=== PATIENT | female | born 1945 | race Caucasian/White ===

== ENCOUNTER → 2016-07-13 | Outpatient (CLI) | payer OTHER ==
[2014-08-16 10:24] VITALS: BP 134/84
--- NOTE | 2016-07-14 14:04 | MRI ---
MRI left knee without contrast Indication: Knee pain and numbness Technique: Multiplanar, multi sequence imaging of the left knee without IV contrast administration. Findings: The extensor mechanism is intact. The patellofemoral compartment demonstrates approximate 25-30% thinning of the median patellar ridge articular cartilage. There is mild chondral fissuring o f the lateral patellar articular cartilage without subchondral marrow edema. The patella is well pos itioned within the femoral trochlea. Medial and lateral retinacular complexes are intact. Small supr apatellar joint effusion. The the pes anserine tendons are intact. The popliteus muscle is normal. T here is intermediate signal within the popliteus tendon suspicious for tendinopathy. No acute tear. No popliteal fossa cyst. There is a moderate size medial and small bilateral gastrocnemius ganglion cyst present. The medial femorotibial compartment demonstrates no significant chondral thinning, chondromalacia or subchondral marrow signal abnormality. The lateral femorotibial compartment also is that evidence o f significant chondral thinning, chondromalacia or subchondral marrow signal abnormality. Cruciate a nd collateral ligaments are intact. Iliotibial band and biceps femoris are normal. There is osteocho ndral body within the posterior knee joint measuring approximately 8.5 mm on axial image 22 and jaylyn nal image 24. A small osteochondral body is noted within the knee joint on sagittal image 15. Horizo ntally oriented intermediate signal within the meniscal body which appears to extend to the under medrano rface of the central free edge on coronal image 20 most likely represents a subacute flap tear. No e xtrusion of the medial meniscus. The lateral meniscus without evidence of tear. Impression: 1.Two osteochondral bodies in the posterior knee joint with mild patellofemoral compartment osteoart hrosis. 2. Linear intermediate signal extending to the under surface of the medial meniscal body suspicious for a horizontal tear, given the intermediate signal this may represent a subacute or chronic menisc al tear. No root tear or displacement of the medial meniscus. 3. Mild popliteus tendinopathy. Reported By:
== END ==
LOC: RAD 13:44
PROVIDERS: ATTEND Internal Medicine
DX: M25.562 Pain in left knee (principal)
CPT/HCPCS: 73721

== ENCOUNTER → 2016-09-02 | Outpatient (CLI) | payer OTHER ==
[2014-08-16 10:24] VITALS: BP 134/84
--- NOTE | 2016-09-02 12:17 | RAD ---
Three views of the left knee Indication: Left knee pain Findings: There is mild tricompartmental osteoarthrosis within the left knee. Mild enthesopathic elyssa nge of the distal quadriceps tendon. No suprapatellar joint effusion, fracture or dislocation within the left knee. No definite localizing soft tissue swelling. Impression: Mild tricompartmental osteoarthrosis within the left knee without acute fracture, disloc ation or suprapatellar joint effusion. Reported By:
== END | disposition home or self-care (01) | DRG 554 ==
LOC: RAD 11:50
PROVIDERS: ATTEND Orthopaedic Surgery
DX: M17.12 Unilateral primary osteoarthritis, left knee (principal)
CPT/HCPCS: 73564

== ENCOUNTER 2020-05-29 09:49 | Inpatient (IN) ==
[2020-05-29 12:20] LABS: BASOPHILS % (AUTO) 0.2 % (0.2-1.0); EOSINOPHILS % (AUTO) 0.2 % (0.9-2.9); HEMATOCRIT 38.1 % (36.0-47.0); LYMPHOCYTES # (AUTO) 1.2 X10^3/uL (1.3-2.9); LYMPHOCYTES % (AUTO) 14.9 % (21.0-51.0); MEAN CORPUSCULAR HEMOGLOBIN 33.4 pg (27.0-34.0); MEAN CORPUSCULAR HGB CONC 34.1 g/dL (33.0-35.0); MEAN CORPUSCULAR VOLUME 98.1 fL (80.0-100.0); MEAN PLATELET VOLUME 8.1 fL (7.4-11.0); MONOCYTES # (AUTO) 0.7 x10^3/uL (0.3-0.8); MONOCYTES % (AUTO) 8.9 % (0.0-13.0); NEUTROPHILS % (AUTO) 75.8 % (42.0-75.0); PLATELET COUNT 139 X10^3/uL (150.0-450.0); RED BLOOD COUNT 3.89 X10^6/uL (3.5-5.4); RED CELL DISTRIBUTION WIDTH 18.6 % (11.6-16.5); WHITE BLOOD COUNT 7.8 X10^3/uL (3.6-10.0)
--- NOTE | 2020-05-29 12:55 | RAD ---
HISTORYAMS, ATAXIA, WEAKNESSSTUDYCHEST, 1 VIEWCOMPARISONPortable chest November 25, 2018FINDINGSThe trachea is midline. The cardiac silhouette is unremarkable . The lungs are clear without focal infiltrate or effusion. Stable small nodular densities are seen bilaterally in the mid and lower lung lee without change from November 25, 2018 the bony thorax is unremarkable.IMPRESSIONNo acute cardiopulmonary disease and no change from November 25, 2018. Nodular densities may represent small calcified granulomas..Electronically signed by: JORGE RICKS (May 29, 2020 12:53:57)
--- NOTE | 2020-05-29 12:57 | CT ---
HISTORYAMS, ATAXIA, WEAKNESSSTUDYCT brain without IV contrastCOMPARISONNoneTECHNIQUEMultiple axial images of the brain were obtained without IV contrast. Dose reduction techniques including Automated Exposure Control (AEC) and adjustment of mA and kV were utilized.FINDINGSProbable retention cyst is seen in the posterior left ethmoid air cells. No air-fluid levels are seen in the paranasal sinuses or mastoid air cells. No calvarial fracture is seen.No acute intracranial hemorrhage or mass effect is seen. The cerebral ventricles are normal in size. No evidence of acute CVA. Punctate idiopathic calcifications are seen in the basal ganglia. Mild chronic small vessel ischemic changes are suspected in the basal ganglia and periventricular white matter.IMPRESSIONMild chronic small vessel ischemic changes are suspected without evidence of acute abnormality.Electronically signed by: Bob Allen (May 29, 2020 12:54:47)
[2020-05-29 13:57] VITALS: BMI 28.8
[2020-05-29] MEDS: NS 1000 ML 1,000 ML IV SCH ×2 (14:28→20:35)
[2020-05-29 15:08] LABS: ALANINE AMINOTRANSFERASE 48 Units/L (12-78); ALBUMIN 2.9 g/dL (3.4-5.0); ALKALINE PHOSPHATASE 101 Units/L (46-116); ASPARTATE AMINO TRANSFERASE 40 Units/L (15-37); BLOOD UREA NITROGEN 21 mg/dL (7-18); CALCIUM 9.2 mg/dL (8.5-10.1); CARBON DIOXIDE 28.8 mmol/L (21-32); CHLORIDE 101 mmol/L (98-107); COR CA(FOR HYPOALB) 10.1 mg/dL (8.5-10.1); CREATININE 1.17 mg/dL (0.55-1.02); SODIUM 137 mmol/L (136-145); TOTAL PROTEIN 6.1 g/dL (6.4-8.2); eGFR NON BLACK RACES 48 (>60)
[2020-05-29] MEDS ORDERED: POTASSIUM CHL 60 MEQ/NS 0.45% 500 ML IV PRN (15:13)
[2020-05-29] MEDS ORDERED: K-RIDER 10 MEQ/NS 100 ML 10 MEQ/100 ML BAG IV PRN (15:13)
[2020-05-29] MEDS ORDERED: MICRO K EXTEN CAP 10 MEQ PO PRN (15:13)
[2020-05-29] MEDS ORDERED: KLOR-CON PO PRN (15:13)
[2020-05-29] MEDS ORDERED: MAGNESIUM SULFATE 1 GRAM/100 mL PREMIX 1 GM/100 ML BAG IV PRN (15:13)
[2020-05-29] MEDS ORDERED: POTASSIUM CHLORIDE LIQ 20 MEQ UDC PO PRN (15:13)
[2020-05-29] MEDS ORDERED: POTASSIUM CHL 40 MEQ/NS 0.45% 500 ML IV PRN (15:13)
[2020-05-29 18:11] LABS: BILIRUBIN,URINE NEGATIVE (NEGATIVE); BLOOD/HEMOGLOBIN,URINE NEGATIVE (NEGATIVE); GLUCOSE, URINE NEGATIVE (NEGATIVE); KETONES,URINE NEGATIVE (NEGATIVE); LEUKOCYTE ESTERASE ,URINE 1+ (NEGATIVE); NITRITES,URINE NEGATIVE (NEGATIVE); PROTEIN,URINE NEGATIVE (NEGATIVE); UROBILINOGEN,URINE NORMAL (NORMAL)
[2020-05-29 18:20] LABS: APPEARANCE,URINE CLEAR (CLEAR); COLOR,URINE STRAW (YELLOW)
[2020-05-29 18:22] LABS: AMORPHOUS SEDIMENT,UR 1+ /HPF (NEGATIVE); BACTERIA,URINE 1+ /HPF (NEGATIVE); RBC,URINE NONE SEEN /HPF (0-3); SQUAMOUS EPITHELIAL CELL,UR FEW /HPF (NEGATIVE)
[2020-05-29] MEDS: BUTT CREAM (COMPOUND) TOP PRN (20:41)
[2020-05-30] MEDS: NS 1000 ML 1,000 ML IV SCH ×5 (01:40→20:33)
[2020-05-30 06:09] LABS: BASOPHILS % (AUTO) 0.6 % (0.2-1.0); EOSINOPHILS % (AUTO) 0.1 % (0.9-2.9); HEMATOCRIT 33.5 % (36.0-47.0); HEMOGLOBIN 11.4 g/dL (12.0-16.0); LYMPHOCYTES % (AUTO) 16.1 % (21.0-51.0); MEAN CORPUSCULAR HEMOGLOBIN 33.5 pg (27.0-34.0); MEAN CORPUSCULAR HGB CONC 34.1 g/dL (33.0-35.0); MEAN CORPUSCULAR VOLUME 98.3 fL (80.0-100.0); MEAN PLATELET VOLUME 7.9 fL (7.4-11.0); MONOCYTES # (AUTO) 0.8 x10^3/uL (0.3-0.8); MONOCYTES % (AUTO) 12.8 % (0.0-13.0); NEUTROPHILS # (AUTO) 4.5 x10^3/uL (2.2-4.8); NEUTROPHILS % (AUTO) 70.4 % (42.0-75.0); PLATELET COUNT 114 X10^3/uL (150.0-450.0); RED BLOOD COUNT 3.41 X10^6/uL (3.5-5.4); RED CELL DISTRIBUTION WIDTH 18.9 % (11.6-16.5); WHITE BLOOD COUNT 6.4 X10^3/uL (3.6-10.0)
[2020-05-30 06:35] LABS: ALANINE AMINOTRANSFERASE 32 Units/L (12-78); ALBUMIN 2.1 g/dL (3.4-5.0); ALKALINE PHOSPHATASE 76 Units/L (46-116); ASPARTATE AMINO TRANSFERASE 23 Units/L (15-37); BLOOD UREA NITROGEN 15 mg/dL (7-18); CALCIUM 8.2 mg/dL (8.5-10.1); CARBON DIOXIDE 25.8 mmol/L (21-32); CHLORIDE 104 mmol/L (98-107); COR CA(FOR HYPOALB) 9.7 mg/dL (8.5-10.1); CREATININE 0.81 mg/dL (0.55-1.02); SODIUM 139 mmol/L (136-145); TOTAL PROTEIN 4.7 g/dL (6.4-8.2); eGFR NON BLACK RACES > 60 (>60)
[2020-05-30] MEDS: K-DUR TAB 20 MEQ PO PRN (08:56)
[2020-05-30] MEDS: ROCEPHIN VIAL 1 GRAM 1 G in NS 100 ML IV + SPIKE MINIBAG* 100 ML IV SCH (08:56)
--- NOTE | 2020-05-30 10:25 | DR.H&P ---
H&P - History & Physical for Day of: H&P Date: 05/29/20 - Chief Complaint Chief Complaint: VISION CHANGES, DIZZINESS, WEAKNESS, UNSTEADY GAIT, LEG PAIN AND WEAKNESS, AND DECREASED APPETITE. - History of Present Illness History of Present Illness: HAS BEEN FOLLOWED IN THE OFFICE FOR THE PAST TWO WEEKS WITH COMPLAINTS OF VISION CHANGES, DIZZINESS, WEAKNESS, UNSTEADY GAIT, LEG PAIN AND WEAKNESS, AND DECREASED APPETITE. HER DAUGHTER REPORTS THAT HER BLOOD PRESSURE HAS BEEN LOW. WE HAVE HELD HER BLOOD PRESSURE MEDICATIONS AND HER STEROIDS, HOWEVER, SYMPTOMS PERSIST. SHE COMPLAINS OF LOWER EXTREMITY EDEMA AND ALSO REPORTS THAT SHE FEELS LIKE HER HANDS HAVE BEEN DRAWING UP. EXAMINATION HAS REVEALED 2+ PITTING EDEMA TO HER LOWER EXTREMITIES. SHE REPORTS THAT THE PAIN IN HER LOWER EXTREMITIES IS DESCRIBED DULL AND CRAMPING AT TIMES. IN THE OFFICE, IT WAS RATED A 4/10, BUT WHEN TOUCHED, PAIN INCREASED TO A 8/10. SHE HAS BEEN REFERRED TO , [employer], BUT HAS NOT SEEN HIM YET. SHE HAS BEEN TAKING HCTZ 12.5MG DAILY TO HELP WITH THE EDEMA, BUT WAS INSTRUCTED TO STOP IT IF HER BLOOD PRESSURE DROPPED. HER PMH INCLUDES ARTHRITIS, GERD, DYSPHAGIA, ANGINA, CHOLECYSTECTOMY, TUBAL, BLADDER TACT, CATARACT SURGERY, AND TONSILLECTOMY. SHE WAS ADMITTED TO THE HOSPITAL FOR FURTHER EVALUATION AND TREATMENT OF SYMPTOMS. ON ARRIVAL TO THE HOSPITAL, VITALS WERE 99.3-101-20-99%-111/75. LABS WERE OBTAINED. ABNORMAL LAB VALUES INCLUDE THE FOLLOWING: PLT COUNT 139, POTASSIUM 3.0, BUN 21, CREATININE 1.17, GLUCOSE 100, TOTAL BILIRUBIN 1.60, AST 40, CRP 82.70, TOTAL PROTEIN 6.1, ALBUMIN 2.9. URINALYSIS WAS OBTAINED AND REVEALED: WBC 3-5, LEUKOCYTES 1+, BACTERIA 1+. A URINE CULTURE WAS SET UP. WE WILL ALSO OBTAIN BLOOD CULTURES. A CHEST XRAY WAS OBTAINED AND REVEALED: No acute cardiopulmonary disease and no change from S eptember 2018. Nodular densities may represent small calcified granulomas. A BRAIN CT WAS OBTAINED AND REVEALED: Mild chronic small vessel ischemic changes are suspected without evidence of acute abnormality. SHE WAS STARTED ON NORMAL SALINE AT 75 ML/HR, ROCEPHIN 1G IV DAILY, LOVENOX 40MG IV Q8H, SOLU-MEDROL 40MG IV Q8H, AND THE POTASSIUM AND MAGNESIUM PROTOCOLS. OTHERWISE, WE PLAN TO FOLLOW UP WITH AM LABS AND CONTINUE TO MONITOR. TIME SPENT ON CLINICAL ASSESSMENT, REVIEWING LABS AND IMAGING, DECISION MAKING, AND DOCUMENTATION GREATER THAN 75 MINUTES. - Past Medical History Past Medical History: Angina, Arthritis, GERD, Hypertension Additional Medical History: ANGINA, DYSPHAGIA - Past Surgical History Surgical History: Cholecystectomy, SIGNALMAN Surgery, Tonsillectomy Additional Surgical History: TUBAL, BLADDER TACT - Family History Family Medical History: Cancer - Social History Does patient currently use any type of tobacco product: No Have you used tobacco products in the last 12 months: No Type of Tobacco Use: None Alcohol Use: None Drug Use: None - Medications Home Medications: peanut Allergy (Verified 12/08/18 09:27) CONTINUE taking the following medications cyanocobalamin (vitamin B-12) 1,000 mcg IM Q14D 05/29/20 [History] folic acid 1 mg PO BID 05/29/20 [History] gabapentin 100 mg PO TID 05/29/20 [History] levothyroxine 50 mcg PO DAILY 05/29/20 [History] pantoprazole 40 mg PO BID 05/29/20 [History] tizanidine 4 mg PO BID 05/29/20 [History] triamterene-hydrochlorothiazid 1 tab PO DAILY 05/29/20 [History] - Review of Systems Constitutional: See HPI, Weakness, Malaise, Other (DECREASED APPETITE ) Eyes: No Symptoms Reported ENT: No Symptoms Reported Respiratory: No Symptoms Reported Cardiovascular: Edema (BLE 1+ PITTING EDEMA ), Light Headedness Gastrointestinal: No Symptoms Reported Genitourinary: No Symptoms Reported Musculoskeletal: See HPI, Leg Pain (BILATERAL LEG PAIN ) Skin: No Symptoms Reported Neurological: Weakness - Physical Exam Vital Signs: Temperature 98.8 F Pulse Rate [Right Brachial] 82 Respiratory Rate 24 Blood Pressure [Right Arm] 101/53 Blood Pressure [Left Arm] 109/55 Blood Pressure 125/71 O2 Sat by Pulse Oximetry 97 Oriented: Normal Eyes: Normal Ear: Normal Nose: Normal Throat: Normal Respiratory: Diminished Throughout Cardiovascular: Edema (BLE 1+ PITTING EDEMA) : Normal Auscultation: Bowel Sounds: Normal Palpation: Normal Tenderness: Normal Skin: Normal Musculoskeletal: Right, Left, Leg, Swelling, Tender Psychiatric: Normal Mood Description: Calm Affect: Normal Speech Pattern: Clear - Assessment/Plan (1) Dehydration Status: Acute Plan: ADMIT, NORMAL SALINE AT 75 ML/HR, ROCEPHIN 1G IV DAILY, LOVENOX 40MG IV Q8H, SOLU-MEDROL 40MG IV Q8H, AND THE POTASSIUM AND MAGNESIUM PROTOCOLS. (2) Urinary tract infection Qualifiers: Urinary tract infection type: acute cystitis Hematuria presence: without hematuria Qualified Code(s): N30.00 - Acute cystitis without hematuria Status: Acute (3) Ataxia Status: Acute (4) Hypotension Qualifiers: Hypotension type: unspecified hypotension type Qualified Code(s): I95.9 - Hypotension, unspecified Status: Acute (5) Generalized weakness Status: Acute (6) Hypokalemia Status: Acute - Allergies Allergies/Adverse Reactions: Allergies Allergy/AdvReac Type Severity Reaction Status Date / Time peanut Allergy Verified 12/08/18 09:27
[2020-05-30] MEDS: SOLU-Medrol 40 MG VIAL IVP SCH ×3 (10:26→21:03)
[2020-05-30] MEDS: HEMOCYTE-PLUS PO SCH (10:26)
[2020-05-30] MEDS: LOVENOX INJ 40 MG SYR SC SCH (10:27)
[2020-05-30 11:44] LABS: CKMB % 4.6 % (<4); CREATINE KINASE 22 Units/L (26-192); CREATINE KINASE MB < 1.0 ng/mL (0-4.0); TROPONIN I 0.02 ng/mL (0-1.5)
[2020-05-30] MEDS: NEURONTIN CAP 100 MG PO SCH ×2 (13:42→21:03)
[2020-05-30] MEDS: PROTONIX TAB 40 MG PO SCH ×2 (13:42→20:33)
[2020-05-30] MEDS: SYNTHROID 50 mcg TAB PO SCH (13:43)
[2020-05-30] MEDS: ZANAFLEX PO SCH (20:33)
[2020-05-31 05:55] LABS: BASOPHILS % (AUTO) 0.2 % (0.2-1.0); HEMATOCRIT 32.2 % (36.0-47.0); HEMOGLOBIN 10.8 g/dL (12.0-16.0); LYMPHOCYTES # (AUTO) 0.7 X10^3/uL (1.3-2.9); LYMPHOCYTES % (AUTO) 8.1 % (21.0-51.0); MEAN CORPUSCULAR HEMOGLOBIN 32.9 pg (27.0-34.0); MEAN CORPUSCULAR HGB CONC 33.5 g/dL (33.0-35.0); MEAN CORPUSCULAR VOLUME 98.3 fL (80.0-100.0); MEAN PLATELET VOLUME 8.2 fL (7.4-11.0); MONOCYTES # (AUTO) 0.4 x10^3/uL (0.3-0.8); MONOCYTES % (AUTO) 4.9 % (0.0-13.0); NEUTROPHILS # (AUTO) 7.1 x10^3/uL (2.2-4.8); NEUTROPHILS % (AUTO) 86.8 % (42.0-75.0); PLATELET COUNT 121 X10^3/uL (150.0-450.0); RED BLOOD COUNT 3.27 X10^6/uL (3.5-5.4); RED CELL DISTRIBUTION WIDTH 18.8 % (11.6-16.5); WHITE BLOOD COUNT 8.2 X10^3/uL (3.6-10.0)
[2020-05-31 06:12] LABS: ALANINE AMINOTRANSFERASE 27 Units/L (12-78); ALBUMIN 1.8 g/dL (3.4-5.0); ALKALINE PHOSPHATASE 75 Units/L (46-116); ASPARTATE AMINO TRANSFERASE 21 Units/L (15-37); BLOOD UREA NITROGEN 16 mg/dL (7-18); CALCIUM 8.4 mg/dL (8.5-10.1); CARBON DIOXIDE 22.6 mmol/L (21-32); CHLORIDE 109 mmol/L (98-107); COR CA(FOR HYPOALB) 10.2 mg/dL (8.5-10.1); COR NA(FOR HYPERGLY) 142 mmol/L (136-145); CREATININE 0.75 mg/dL (0.55-1.02); SODIUM 141 mmol/L (136-145); TOTAL PROTEIN 4.6 g/dL (6.4-8.2); eGFR NON BLACK RACES > 60 (>60)
[2020-05-31] MEDS: NEURONTIN CAP 100 MG PO SCH (06:13)
[2020-05-31] MEDS: NS 1000 ML 1,000 ML IV SCH ×3 (06:13→21:06)
[2020-05-31] MEDS: SOLU-Medrol 40 MG VIAL IVP SCH ×3 (06:14→21:33)
[2020-05-31] MEDS: HEMOCYTE-PLUS PO SCH (09:08)
[2020-05-31] MEDS: PROTONIX TAB 40 MG PO SCH ×2 (09:09→20:37)
[2020-05-31] MEDS: ROCEPHIN VIAL 1 GRAM 1 G in NS 100 ML IV + SPIKE MINIBAG* 100 ML IV SCH (09:09)
[2020-05-31] MEDS: LOVENOX INJ 40 MG SYR SC SCH (09:09)
[2020-05-31] MEDS: SYNTHROID 50 mcg TAB PO SCH (09:10)
[2020-05-31] MEDS: ZANAFLEX PO SCH (09:10)
[2020-05-31] MEDS ORDERED: PROCALAMINE 3 % 1,000 ML IV SCH (10:00)
[2020-05-31] MEDS: ALBUMIN HUMAN 25%- 100 ML 100 ML IV SCH (10:23)
--- NOTE | 2020-05-31 11:02 | PCM.PROG ---
Progress Note - Progress Note for Day of Date of Exam: 05/30/20 - Subjective Subjective: WAS ADMITTED FOR TREATMENT OF DEHYDRATION, UTI, ATAXIA, HYPOTENSION, GENERALIZED WEAKNESS, AND HYPOKALEMIA. TODAY, SHE IS ALERT AND ORIENTED, LYING IN BED ON MORNING ROUNDS. SHE CONTINUES WITH COMPLAINTS OF GENERALIZED WEAKNESS. SHE ALSO CONTINUES WITH MODERATE PAIN AND WEAKNESS TO HER LOWER EXTREMITIES. SHE REPORTS A DECREASED APPETITE AT HOME. PATIENTS DAUGHTER REPORTS THAT SHE REQUIRES MODERATE ASSISTANCE ON AMBULATION DUE TO SEVERE WEAKNESS TO LOWER EXTREMITIES. ON EXAMINATION, HEART IS REGULAR IN RATE AND RHYTHM. BILATERAL LUNGS ARE NOTED WITH DIMINISHED LUNG SOUNDS THROUGHOUT. ABDOMEN IS ROUND, SOFT, AND NON-TENDER WITH NORMAL BOWEL SOUNDS NOTED IN ALL QUADRANTS. SHE DOES HAVE MODERATE TENDERNESS UPON EXAMINATION OF LOWER EXTREMITIES. SHE GRIMACES AND BEGINS TO CRY WHEN LEGS ARE TOUCHED. THERE IS ONLY TRACE EDEMA TO LOWER EXTREMITIES. HER VITALS THIS MORNING ARE: 98.8-82-24-97%-101/53. LABS WERE OBTAINED. ABNORMAL LAB VALUES INCLUDE THE FOLLOWING: RBC 3.41, HGB 11.4, HCT 33.5, PLT COUNT 114, GLUCOSE 101, CALCIUM 8.2, TOTAL BILI 1.10, CRP 79.90, TOTAL PROTEIN 4.7, ALBUMIN 2.1. URINE CULTURE PENDING. SHE IS CURRENTLY RECEIVING NORMAL SALINE AT 75 ML/HR, ROCEPHIN 1G IV DAILY, LOVENOX 40MG IV Q8H, SOLU-MEDROL 40MG IV Q8H, AND THE POTASSIUM AND MAGNESIUM PROTOCOLS. WE RESUMED HER HOME MEDICATIONS OF SYNTHROID 50MCG PO DAILY AND PROTONIX 40MG PO DAILY. TODAY, WE WILL START HEMOCYTE PLUS 1 CAPSULE DAILY. WE WILL OBTAIN BLOOD CULTURES AND A CREATINE KINASE LEVEL. OTHERWISE, WE PLAN TO FOLLOW UP WITH AM LABS AND CONTINUE TO MONITOR. TIME SPENT ON CLINICAL ASSESSMENT, REVIEWING LABS AND IMAGING, DECISION MAKING, DOCUMENTATION WAS GREATER THAN 45 MINUTES. - Past Medical Family Social History Past Med/Fam/Surg Hx: No changes since H&P Allergies: Allergies peanut Allergy (Verified 12/08/18 09:27) - Review of Systems ROS: No change since H&P - Vital Signs and I&O's Vital Signs: Temperature 97.9 F Pulse Rate [Right Brachial] 59 Respiratory Rate 20 Blood Pressure [Right Arm] 95/53 Blood Pressure [Left Arm] 102/58 Blood Pressure 125/71 O2 Sat by Pulse Oximetry 96 Intake and Output: Intake & Output 05/28/20 05/29/20 05/30/20 05/31/20 11:59 11:59 11:59 11:59 Intake Total 1936 Balance 1936 - Physical Exam Oriented: Normal Eyes: Normal Ear: Normal Nose: Normal Throat: Normal Respiratory: Generalized, Diminished Cardiovascular: Edema (BLE TRACE EDEMA) : Normal Auscultation: Bowel Sounds: Normal Palpation: Normal Tenderness: Normal Skin: Normal Musculoskeletal: Right, Left, Leg, Swelling, Tender Psychiatric: Normal Mood Description: Calm Affect: Normal Speech Pattern: Clear, Appropriate - Laboratory and Diagnostics Result Diagrams: 05/31/20 05:30 05/31/20 05:30 Labs: 05/29/20 18:01 Urine,Clean Catch Urine Culture - Final Escherichia Coli Laboratory WBC 8.2 X10^3/uL (3.6-10.0) 05/31/20 05:30 RBC 3.27 X10^6/uL (3.5-5.4) L 05/31/20 05:30 Hgb 10.8 g/dL (12.0-16.0) L 05/31/20 05:30 Hct 32.2 % (36.0-47.0) L 05/31/20 05:30 MCV 98.3 fL (80.0-100.0) 05/31/20 05:30 MCH 32.9 pg (27.0-34.0) 05/31/20 05:30 MCHC 33.5 g/dL (33.0-35.0) 05/31/20 05:30 RDW 18.8 % (11.6-16.5) H 05/31/20 05:30 Plt Count 121 X10^3/uL (150.0-450.0) L 05/31/20 05:30 MPV 8.2 fL (7.4-11.0) 05/31/20 05:30 Neut % (Auto) 86.8 % (42.0-75.0) H 05/31/20 05:30 Lymph % (Auto) 8.1 % (21.0-51.0) L 05/31/20 05:30 [place] % (Auto) 4.9 % (0.0-13.0) 05/31/20 05:30 Eos % (Auto) 0.0 % (0.9-2.9) L 05/31/20 05:30 Baso % (Auto) 0.2 % (0.2-1.0) 05/31/20 05:30 Neut # (Auto) 7.1 x10^3/uL (2.2-4.8) H 05/31/20 05:30 Lymph # (Auto) 0.7 X10^3/uL (1.3-2.9) L 05/31/20 05:30 [place] # (Auto) 0.4 x10^3/uL (0.3-0.8) 05/31/20 05:30 Eos # (Auto) 0.0 x10^3/uL (0.0-0.2) 05/31/20 05:30 Baso # (Auto) 0.0 X10^3/uL (0.0-0.1) 05/31/20 05:30 Absolute Nucleated RBC 0.0 /100WBC 05/31/20 05:30 Sodium 141 mmol/L (136-145) 05/31/20 05:30 Corrected Sodium 142 mmol/L (136-145) 05/31/20 05:30 Potassium 3.7 mmol/L (3.5-5.1) 05/31/20 05:30 Chloride 109 mmol/L (98-107) H 05/31/20 05:30 Carbon Dioxide 22.6 mmol/L (21-32) 05/31/20 05:30 BUN 16 mg/dL (7-18) 05/31/20 05:30 Creatinine 0.75 mg/dL (0.55-1.02) 05/31/20 05:30 Est GFR (MDRD) Af Amer > 60 (>60) 05/31/20 05:30 Est GFR (MDRD) Non-Af > 60 (>60) 05/31/20 05:30 Glucose 135 mg/dL (65-99) H 05/31/20 05:30 Uric Acid 2.8 mg/dL (2.6-6.0) 05/31/20 05:30 Calcium 8.4 mg/dL (8.5-10.1) L 05/31/20 05:30 Corrected Calcium 10.2 mg/dL (8.5-10.1) H 05/31/20 05:30 Magnesium 2.4 mg/dL (1.7-2.9) 05/29/20 12:10 Total Bilirubin 0.50 mg/dL (0.2-1.0) 05/31/20 05:30 AST 21 Units/L (15-37) 05/31/20 05:30 ALT 27 Units/L (12-78) 05/31/20 05:30 Alkaline Phosphatase 75 Units/L (46-116) 05/31/20 05:30 Creatine Kinase 22 Units/L (26-192) L 05/30/20 10:15 CK-MB (CK-2) < 1.0 ng/mL (0-4.0) 05/30/20 10:15 CK/CKMB % Calc 4.6 % (<4) 05/30/20 10:15 Troponin I 0.02 ng/mL (0-1.5) 05/30/20 10:15 C-Reactive Protein 106.00 mg/L (0-3.0) H 05/31/20 05:30 Total Protein 4.6 g/dL (6.4-8.2) L 05/31/20 05:30 Albumin 1.8 g/dL (3.4-5.0) L 05/31/20 05:30 Globulin 2.8 g/dL (2.5-4.5) 05/31/20 05:30 Albumin/Globulin Ratio 0.6 Ratio (1.1-2.1) L 05/31/20 05:30 Specimen Type Clean catch urine 05/29/20 18:01 Urine Color Straw (YELLOW) 05/29/20 18:01 Urine Appearance Clear (CLEAR) 05/29/20 18:01 Urine pH 8.0 (5.0 - 8.0) 05/29/20 18:01 Ur Specific [place] 1.015 (1.000-1.030) 05/29/20 18:01 Urine Protein Negative (NEGATIVE) 05/29/20 18:01 Urine Glucose (UA) Negative (NEGATIVE) 05/29/20 18:01 Urine Ketones Negative (NEGATIVE) 05/29/20 18:01 Urine Occult Blood Negative (NEGATIVE) 05/29/20 18:01 Urine Nitrite Negative (NEGATIVE) 05/29/20 18:01 Urine Bilirubin Negative (NEGATIVE) 05/29/20 18:01 Urine Urobilinogen Normal (NORMAL) 05/29/20 18:01 Ur Leukocyte Esterase 1+ (NEGATIVE) 05/29/20 18:01 Urine RBC None seen /HPF (0-3) 05/29/20 18:01 Urine WBC 3-5 /HPF (0-5) 05/29/20 18:01 Ur Squamous Epith Cells Few /HPF (NEGATIVE) 05/29/20 18:01 Amorphous Sediment 1+ /HPF (NEGATIVE) 05/29/20 18:01 Urine Bacteria 1+ /HPF (NEGATIVE) 05/29/20 18:01 Ur Culture Indicated? Yes/culture set up 05/29/20 18:01 SARS CoV-2 RNA Rapid ABDOUL Negative (NEGATIVE) 05/29/20 11:24 - Plan (1) Dehydration Status: Acute Plan: NORMAL SALINE AT 75 ML/HR, ROCEPHIN 1G IV DAILY, LOVENOX 40MG IV Q8H, SOLU-MEDROL 40MG IV Q8H, HEMOCYTE PLUS DAILY, AND THE POTASSIUM AND MAGNESIUM PROTOCOLS. (2) Urinary tract infection Status: Acute Qualifiers: Urinary tract infection type: acute cystitis Hematuria presence: without hematuria Qualified Code(s): N30.00 - Acute cystitis without hematuria (3) Ataxia Status: Acute (4) Hypotension Status: Acute Qualifiers: Hypotension type: unspecified hypotension type Qualified Code(s): I95.9 - Hypotension, unspecified (5) Generalized weakness Status: Acute (6) Hypokalemia Status: Acute
--- NOTE | 2020-05-31 11:10 | PCM.PROG ---
Progress Note - Progress Note for Day of Date of Exam: 05/31/20 - Subjective Subjective: WAS ADMITTED FOR TREATMENT OF DEHYDRATION, UTI, ATAXIA, HYPOTENSION, GENERALIZED WEAKNESS, AND HYPOKALEMIA. TODAY, SHE IS ALERT AND ORIENTED, LYING IN BED ON MORNING ROUNDS. SHE CONTINUES WITH COMPLAINTS OF GENERALIZED WEAKNESS, DECREASED APPETITE, AND LOWER EXTREMITY PAIN/WEAKNESS. PATIENT DENIES SIGNIFICANT RELIEF OF PAIN IN LOWER EXTREMITIES. STAFF REPORTS THAT PATIENT CONTINUES TO REQUIRE MODERATE ASSISTANCE ON AMBULATION DUE TO SEVERE WEAKNESS TO LOWER EXTREMITIES. ON EXAMINATION, HEART IS REGULAR IN RATE AND RHYTHM. BILATERAL LUNGS ARE NOTED WITH DIMINISHED LUNG SOUNDS THROUGHOUT. ABDOMEN IS ROUND, SOFT, AND NON-TENDER WITH NORMAL BOWEL SOUNDS NOTED IN ALL QUADRANTS. SHE CONTINUES TO HAVE MODERATE TENDERNESS UPON EXAMINATION OF LOWER EXTREMITIES. SHE GRIMACES AND BEGINS TO CRY WHEN LEGS ARE TOUCHED. THERE IS ONLY TRACE EDEMA TO LOWER EXTREMITIES. HER VITALS THIS MORNING ARE: 97.9-59-20-96%-95/53. LABS WERE OBTAINED. ABNORMAL LAB VALUES INCLUDE THE FOLLOWING: RBC 3.27, HGB 10.8, HCT 32.2, PLT COUNT 121, CHLORIDE 109, GLUCOSE 135, CALCIUM 8.4, TOTAL PROTEIN 4.6, ALBUMIN 1.8. HER CPR HAS INCREASED FROM 79.90 TO 106 DESPITE RECEIVING STEROIDS. URINE CULTURE REPORTS GROWTH OF E.COLI. PHYSICAL THERAPY IS WORKING WITH PATIENT. SHE IS CURRENTLY RECEIVING NORMAL SALINE AT 75 ML/HR, ROCEPHIN 1G IV DAILY, LOVENOX 40MG IV Q8H, SOLU-MEDROL 40MG IV Q8H, HEMOCYTE PLUS, AND THE POTASSIUM AND MAGNESIUM PROTOCOLS. WE RESUMED HER HOME MEDICATIONS OF SYNTHROID 50MCG PO DAILY AND PROTONIX 40MG PO DAILY. DUE TO SIGNIFICANTLY LOW PROTEIN AND ALBUMIN LEVELS, PATIENT WILL BE STARTED ON PROCALAMINE AT 40 ML/HR AND ALBUMIN 25% IV DAILY. OTHERWISE, WE PLAN TO FOLLOW UP WITH AM LABS AND CONTINUE TO MONITOR. TIME SPENT ON CLINICAL ASSESSMENT, REVIEWING LABS AND IMAGING, DECISION MAKING, DOCUMENTATION WAS GREATER THAN 45 MINUTES. - Past Medical Family Social History Past Med/Fam/Surg Hx: No changes since H&P Allergies: Allergies peanut Allergy (Verified 12/08/18 09:27) - Review of Systems ROS: No change since H&P - Vital Signs and I&O's Vital Signs: Temperature 97.9 F Pulse Rate [Right Brachial] 59 Respiratory Rate 20 Blood Pressure [Right Arm] 95/53 Blood Pressure [Left Arm] 102/58 Blood Pressure 125/71 O2 Sat by Pulse Oximetry 96 Intake and Output: Intake & Output 05/28/20 05/29/20 05/30/20 05/31/20 11:59 11:59 11:59 11:59 Intake Total 1936 2336 / 2336 Balance 1936 - Physical Exam Oriented: Normal Eyes: Normal Ear: Normal Nose: Normal Throat: Normal Respiratory: Generalized, Diminished Cardiovascular: Edema (BLE TRACE EDEMA) : Normal Auscultation: Bowel Sounds: Normal Tenderness: Normal Skin: Normal Musculoskeletal: Right, Left, Leg, Swelling, Tender Psychiatric: Normal Mood Description: Calm Affect: Normal Speech Pattern: Clear, Appropriate - Laboratory and Diagnostics Result Diagrams: 05/31/20 05:30 05/31/20 05:30 Labs: 05/29/20 18:01 Urine,Clean Catch Urine Culture - Final Escherichia Coli Laboratory WBC 8.2 X10^3/uL (3.6-10.0) 05/31/20 05:30 RBC 3.27 X10^6/uL (3.5-5.4) L 05/31/20 05:30 Hgb 10.8 g/dL (12.0-16.0) L 05/31/20 05:30 Hct 32.2 % (36.0-47.0) L 05/31/20 05:30 MCV 98.3 fL (80.0-100.0) 05/31/20 05:30 MCH 32.9 pg (27.0-34.0) 05/31/20 05:30 MCHC 33.5 g/dL (33.0-35.0) 05/31/20 05:30 RDW 18.8 % (11.6-16.5) H 05/31/20 05:30 Plt Count 121 X10^3/uL (150.0-450.0) L 05/31/20 05:30 MPV 8.2 fL (7.4-11.0) 05/31/20 05:30 Neut % (Auto) 86.8 % (42.0-75.0) H 05/31/20 05:30 Lymph % (Auto) 8.1 % (21.0-51.0) L 05/31/20 05:30 [place] % (Auto) 4.9 % (0.0-13.0) 05/31/20 05:30 Eos % (Auto) 0.0 % (0.9-2.9) L 05/31/20 05:30 Baso % (Auto) 0.2 % (0.2-1.0) 05/31/20 05:30 Neut # (Auto) 7.1 x10^3/uL (2.2-4.8) H 05/31/20 05:30 Lymph # (Auto) 0.7 X10^3/uL (1.3-2.9) L 05/31/20 05:30 [place] # (Auto) 0.4 x10^3/uL (0.3-0.8) 05/31/20 05:30 Eos # (Auto) 0.0 x10^3/uL (0.0-0.2) 05/31/20 05:30 Baso # (Auto) 0.0 X10^3/uL (0.0-0.1) 05/31/20 05:30 Absolute Nucleated RBC 0.0 /100WBC 05/31/20 05:30 Sodium 141 mmol/L (136-145) 05/31/20 05:30 Corrected Sodium 142 mmol/L (136-145) 05/31/20 05:30 Potassium 3.7 mmol/L (3.5-5.1) 05/31/20 05:30 Chloride 109 mmol/L (98-107) H 05/31/20 05:30 Carbon Dioxide 22.6 mmol/L (21-32) 05/31/20 05:30 BUN 16 mg/dL (7-18) 05/31/20 05:30 Creatinine 0.75 mg/dL (0.55-1.02) 05/31/20 05:30 Est GFR (MDRD) Af Amer > 60 (>60) 05/31/20 05:30 Est GFR (MDRD) Non-Af > 60 (>60) 05/31/20 05:30 Glucose 135 mg/dL (65-99) H 05/31/20 05:30 Uric Acid 2.8 mg/dL (2.6-6.0) 05/31/20 05:30 Calcium 8.4 mg/dL (8.5-10.1) L 05/31/20 05:30 Corrected Calcium 10.2 mg/dL (8.5-10.1) H 05/31/20 05:30 Magnesium 2.4 mg/dL (1.7-2.9) 05/29/20 12:10 Total Bilirubin 0.50 mg/dL (0.2-1.0) 05/31/20 05:30 AST 21 Units/L (15-37) 05/31/20 05:30 ALT 27 Units/L (12-78) 05/31/20 05:30 Alkaline Phosphatase 75 Units/L (46-116) 05/31/20 05:30 Creatine Kinase 22 Units/L (26-192) L 05/30/20 10:15 CK-MB (CK-2) < 1.0 ng/mL (0-4.0) 05/30/20 10:15 CK/CKMB % Calc 4.6 % (<4) 05/30/20 10:15 Troponin I 0.02 ng/mL (0-1.5) 05/30/20 10:15 C-Reactive Protein 106.00 mg/L (0-3.0) H 05/31/20 05:30 Total Protein 4.6 g/dL (6.4-8.2) L 05/31/20 05:30 Albumin 1.8 g/dL (3.4-5.0) L 05/31/20 05:30 Globulin 2.8 g/dL (2.5-4.5) 05/31/20 05:30 Albumin/Globulin Ratio 0.6 Ratio (1.1-2.1) L 05/31/20 05:30 Specimen Type Clean catch urine 05/29/20 18:01 Urine Color Straw (YELLOW) 05/29/20 18:01 Urine Appearance Clear (CLEAR) 05/29/20 18:01 Urine pH 8.0 (5.0 - 8.0) 05/29/20 18:01 Ur Specific [place] 1.015 (1.000-1.030) 05/29/20 18:01 Urine Protein Negative (NEGATIVE) 05/29/20 18:01 Urine Glucose (UA) Negative (NEGATIVE) 05/29/20 18:01 Urine Ketones Negative (NEGATIVE) 05/29/20 18:01 Urine Occult Blood Negative (NEGATIVE) 05/29/20 18:01 Urine Nitrite Negative (NEGATIVE) 05/29/20 18:01 Urine Bilirubin Negative (NEGATIVE) 05/29/20 18:01 Urine Urobilinogen Normal (NORMAL) 05/29/20 18:01 Ur Leukocyte Esterase 1+ (NEGATIVE) 05/29/20 18:01 Urine RBC None seen /HPF (0-3) 05/29/20 18:01 Urine WBC 3-5 /HPF (0-5) 05/29/20 18:01 Ur Squamous Epith Cells Few /HPF (NEGATIVE) 05/29/20 18:01 Amorphous Sediment 1+ /HPF (NEGATIVE) 05/29/20 18:01 Urine Bacteria 1+ /HPF (NEGATIVE) 05/29/20 18:01 Ur Culture Indicated? Yes/culture set up 05/29/20 18:01 SARS CoV-2 RNA Rapid ABDOUL Negative (NEGATIVE) 05/29/20 11:24 - Plan (1) Dehydration Status: Acute Plan: NORMAL SALINE AT 75 ML/HR, ROCEPHIN 1G IV DAILY, LOVENOX 40MG IV Q8H, SOLU-MEDROL 40MG IV Q8H, HEMOCYTE PLUS DAILY, AND THE POTASSIUM AND MAGNESIUM PROTOCOLS. (2) Urinary tract infection Status: Acute Qualifiers: Urinary tract infection type: acute cystitis Hematuria presence: without hematuria Qualified Code(s): N30.00 - Acute cystitis without hematuria (3) Ataxia Status: Acute (4) Hypotension Status: Acute Qualifiers: Hypotension type: unspecified hypotension type Qualified Code(s): I95.9 - Hypotension, unspecified (5) Generalized weakness Status: Acute (6) Hypokalemia Status: Acute
[2020-05-31] MEDS: K-DUR TAB 20 MEQ PO PRN (20:37)
[2020-06-01] MEDS ORDERED: VISTARIL PO ONE ×2 (01:36→01:37)
[2020-06-01] MEDS: NS 1000 ML 1,000 ML IV SCH ×5 (04:29→23:02)
[2020-06-01] MEDS: SOLU-Medrol 40 MG VIAL IVP SCH ×3 (05:40→21:00)
[2020-06-01 05:57] LABS: BASOPHILS % (AUTO) 0.1 % (0.2-1.0); HEMATOCRIT 28.7 % (36.0-47.0); LYMPHOCYTES # (AUTO) 0.8 X10^3/uL (1.3-2.9); LYMPHOCYTES % (AUTO) 8.1 % (21.0-51.0); MEAN CORPUSCULAR HEMOGLOBIN 33.8 pg (27.0-34.0); MEAN CORPUSCULAR HGB CONC 34.8 g/dL (33.0-35.0); MEAN CORPUSCULAR VOLUME 97.1 fL (80.0-100.0); MEAN PLATELET VOLUME 8.3 fL (7.4-11.0); MONOCYTES # (AUTO) 0.5 x10^3/uL (0.3-0.8); MONOCYTES % (AUTO) 4.6 % (0.0-13.0); NEUTROPHILS # (AUTO) 8.8 x10^3/uL (2.2-4.8); NEUTROPHILS % (AUTO) 87.2 % (42.0-75.0); PLATELET COUNT 142 X10^3/uL (150.0-450.0); RED BLOOD COUNT 2.96 X10^6/uL (3.5-5.4); RED CELL DISTRIBUTION WIDTH 18.9 % (11.6-16.5); WHITE BLOOD COUNT 10.1 X10^3/uL (3.6-10.0)
[2020-06-01 06:05] LABS: ALANINE AMINOTRANSFERASE 27 Units/L (12-78); ALBUMIN 2.1 g/dL (3.4-5.0); ALKALINE PHOSPHATASE 67 Units/L (46-116); ASPARTATE AMINO TRANSFERASE 18 Units/L (15-37); BLOOD UREA NITROGEN 13 mg/dL (7-18); CALCIUM 8.4 mg/dL (8.5-10.1); CARBON DIOXIDE 22.3 mmol/L (21-32); CHLORIDE 112 mmol/L (98-107); COR CA(FOR HYPOALB) 9.9 mg/dL (8.5-10.1); COR NA(FOR HYPERGLY) 144 mmol/L (136-145); CREATININE 0.62 mg/dL (0.55-1.02); SODIUM 144 mmol/L (136-145); TOTAL PROTEIN 4.8 g/dL (6.4-8.2); eGFR NON BLACK RACES > 60 (>60)
[2020-06-01] MEDS: ALBUMIN HUMAN 25%- 100 ML 100 ML IV SCH (09:26)
[2020-06-01] MEDS: SYNTHROID 50 mcg TAB PO SCH (09:28)
[2020-06-01] MEDS: K-DUR TAB 20 MEQ PO PRN (09:28)
[2020-06-01] MEDS: HEMOCYTE-PLUS PO SCH (09:28)
[2020-06-01] MEDS: ROCEPHIN VIAL 1 GRAM 1 G in NS 100 ML IV + SPIKE MINIBAG* 100 ML IV SCH (09:29)
[2020-06-01] MEDS: PROTONIX TAB 40 MG PO SCH ×2 (09:29→20:44)
[2020-06-01] MEDS: LOVENOX INJ 40 MG SYR SC SCH (09:29)
[2020-06-02] MEDS: NS 1000 ML 1,000 ML IV SCH ×3 (03:37→23:42)
[2020-06-02] MEDS: SOLU-Medrol 40 MG VIAL IVP SCH ×3 (05:29→21:00)
[2020-06-02] MEDS: BUTT CREAM (COMPOUND) TOP PRN (05:33)
[2020-06-02 07:02] LABS: BASOPHILS % (AUTO) 0.1 % (0.2-1.0); HEMATOCRIT 27.7 % (36.0-47.0); HEMOGLOBIN 9.6 g/dL (12.0-16.0); LYMPHOCYTES # (AUTO) 0.9 X10^3/uL (1.3-2.9); LYMPHOCYTES % (AUTO) 9.4 % (21.0-51.0); MEAN CORPUSCULAR HEMOGLOBIN 33.8 pg (27.0-34.0); MEAN CORPUSCULAR HGB CONC 34.6 g/dL (33.0-35.0); MEAN CORPUSCULAR VOLUME 97.8 fL (80.0-100.0); MEAN PLATELET VOLUME 8.3 fL (7.4-11.0); MONOCYTES # (AUTO) 0.7 x10^3/uL (0.3-0.8); MONOCYTES % (AUTO) 6.9 % (0.0-13.0); NEUTROPHILS # (AUTO) 8.2 x10^3/uL (2.2-4.8); NEUTROPHILS % (AUTO) 83.6 % (42.0-75.0); PLATELET COUNT 153 X10^3/uL (150.0-450.0); RED BLOOD COUNT 2.83 X10^6/uL (3.5-5.4); WHITE BLOOD COUNT 9.7 X10^3/uL (3.6-10.0)
[2020-06-02 07:24] LABS: ALANINE AMINOTRANSFERASE 31 Units/L (12-78); ALBUMIN 2.3 g/dL (3.4-5.0); ALKALINE PHOSPHATASE 81 Units/L (46-116); ASPARTATE AMINO TRANSFERASE 20 Units/L (15-37); BLOOD UREA NITROGEN 21 mg/dL (7-18); CALCIUM 8.4 mg/dL (8.5-10.1); CARBON DIOXIDE 24.1 mmol/L (21-32); CHLORIDE 112 mmol/L (98-107); COR CA(FOR HYPOALB) 9.8 mg/dL (8.5-10.1); CREATININE 0.75 mg/dL (0.55-1.02); SODIUM 146 mmol/L (136-145); TOTAL PROTEIN 4.7 g/dL (6.4-8.2); eGFR NON BLACK RACES > 60 (>60)
[2020-06-02] MEDS: HEMOCYTE-PLUS PO SCH (09:49)
[2020-06-02] MEDS: ALBUMIN HUMAN 25%- 100 ML 100 ML IV SCH (09:49)
[2020-06-02] MEDS: LOVENOX INJ 40 MG SYR SC SCH (09:49)
[2020-06-02] MEDS: PROTONIX TAB 40 MG PO SCH ×2 (09:50→20:15)
[2020-06-02] MEDS: ROCEPHIN VIAL 1 GRAM 1 G in NS 100 ML IV + SPIKE MINIBAG* 100 ML IV SCH (09:51)
[2020-06-02] MEDS: SYNTHROID 50 mcg TAB PO SCH (09:51)
[2020-06-02] MEDS: K-DUR TAB 20 MEQ PO PRN (13:15)
[2020-06-03] MEDS: NS 1000 ML 1,000 ML IV SCH (05:29)
[2020-06-03] MEDS: SOLU-Medrol 40 MG VIAL IVP SCH ×2 (05:30→13:49)
[2020-06-03 06:26] LABS: BASOPHILS % (AUTO) 0.1 % (0.2-1.0); HEMATOCRIT 29.1 % (36.0-47.0); HEMOGLOBIN 9.8 g/dL (12.0-16.0); LYMPHOCYTES # (AUTO) 1.3 X10^3/uL (1.3-2.9); LYMPHOCYTES % (AUTO) 11.8 % (21.0-51.0); MEAN CORPUSCULAR HGB CONC 33.6 g/dL (33.0-35.0); MEAN CORPUSCULAR VOLUME 98.2 fL (80.0-100.0); MEAN PLATELET VOLUME 8.5 fL (7.4-11.0); MONOCYTES # (AUTO) 0.7 x10^3/uL (0.3-0.8); MONOCYTES % (AUTO) 6.5 % (0.0-13.0); NEUTROPHILS # (AUTO) 8.7 x10^3/uL (2.2-4.8); NEUTROPHILS % (AUTO) 81.6 % (42.0-75.0); PLATELET COUNT 183 X10^3/uL (150.0-450.0); RED BLOOD COUNT 2.96 X10^6/uL (3.5-5.4); RED CELL DISTRIBUTION WIDTH 18.8 % (11.6-16.5); WHITE BLOOD COUNT 10.6 X10^3/uL (3.6-10.0)
[2020-06-03 06:32] LABS: ALANINE AMINOTRANSFERASE 35 Units/L (12-78); ALBUMIN 2.6 g/dL (3.4-5.0); ALKALINE PHOSPHATASE 91 Units/L (46-116); ASPARTATE AMINO TRANSFERASE 25 Units/L (15-37); BLOOD UREA NITROGEN 23 mg/dL (7-18); CALCIUM 8.5 mg/dL (8.5-10.1); CARBON DIOXIDE 24.2 mmol/L (21-32); CHLORIDE 114 mmol/L (98-107); COR CA(FOR HYPOALB) 9.6 mg/dL (8.5-10.1); COR NA(FOR HYPERGLY) 149 mmol/L (136-145); CREATININE 0.73 mg/dL (0.55-1.02); SODIUM 148 mmol/L (136-145); TOTAL PROTEIN 4.9 g/dL (6.4-8.2); eGFR NON BLACK RACES > 60 (>60)
[2020-06-03 07:03] LABS: PLATELET MORPHOLOGY COMMENT NORMAL (NORMAL)
[2020-06-03] MEDS: ROCEPHIN VIAL 1 GRAM 1 G in NS 100 ML IV + SPIKE MINIBAG* 100 ML IV SCH (09:00)
[2020-06-03] MEDS: HEMOCYTE-PLUS PO SCH (09:00)
[2020-06-03] MEDS: LOVENOX INJ 40 MG SYR SC SCH (09:00)
[2020-06-03] MEDS: PROTONIX TAB 40 MG PO SCH (09:00)
[2020-06-03] MEDS: SYNTHROID 50 mcg TAB PO SCH (09:00)
[2020-06-03] MEDS ORDERED: PROCALAMINE 3 % 1,000 ML IV SCH (09:00)
--- NOTE | 2020-06-03 10:15 | PCM.PROG ---
Progress Note - Progress Note for Day of Date of Exam: 06/01/20 - Subjective Subjective: WAS ADMITTED FOR TREATMENT OF DEHYDRATION, UTI, ATAXIA, HYPOTENSION, GENERALIZED WEAKNESS, AND HYPOKALEMIA. TODAY, SHE IS ALERT AND ORIENTED, LYING IN BED ON MORNING ROUNDS. SHE CONTINUES WITH COMPLAINTS OF GENERALIZED WEAKNESS, DECREASED APPETITE, AND LOWER EXTREMITY PAIN/WEAKNESS. PAIN HAS SLIGHTLY DECREASED SINCE YESTERDAY. STAFF REPORTS THAT PATIENT CONTINUES TO REQUIRE MODERATE ASSISTANCE ON AMBULATION DUE TO SEVERE WEAKNESS TO LOWER EXTREMITIES. PATIENTS DAUGHTER REPORTS THAT SHE HAS BEEN CONFUSED THROUGHOUT THE NIGHT. SHE WAS GIVEN VISTARIL THIS MORNING FOR ANXIETY AND AGITATION. ON EXAMINATION, HEART IS REGULAR IN RATE AND RHYTHM. BILATERAL LUNGS ARE NOTED WITH DIMINISHED LUNG SOUNDS THROUGHOUT. ABDOMEN IS ROUND, SOFT, AND NON-TENDER WITH NORMAL BOWEL SOUNDS NOTED IN ALL QUADRANTS. SHE CONTINUES TO HAVE MILD TENDERNESS UPON EXAMINATION OF LOWER EXTREMITIES. THEY DO NOT APPEAR TO BE TENDER TO TOUCH THIS MORNING. NO EDEMA NOTED. HER VITALS THIS MORNING ARE: 97.9-64-20-98%-103/58. LABS WERE OBTAINED. ABNORMAL LAB VALUES INCLUDE THE FOLLOWING: WBC 10.1, RBC 2.96, HGB 10.0, HCT 28.7, PLT COUNT 142, SODIUM 146, CHLORIDE 112, BUN 21, GLUCOSE 101, CALCIUM 8.4, CRP 24.0, TOTAL PROTEIN 4.7, ALBUMIN 2.3. URINE CULTURE REPORTS GROWTH OF E.COLI. PHYSICAL THERAPY IS WORKING WITH PATIENT. SHE IS CURRENTLY RECEIVING NORMAL SALINE AT 75 ML/HR, PROCALAMINE AT 40 ML/HR, ALBUMIN 25% IV DAILY, ROCEPHIN 1G IV DAILY, LOVENOX 40MG IV Q8H, SOLU-MEDROL 40MG IV Q8H, HEMOCYTE PLUS, AND THE POTASSIUM AND MAGNESIUM PROTOCOLS. WE RESUMED HER HOME MEDICATIONS OF SYNTHROID 50MCG PO DAILY AND PROTONIX 40MG PO DAILY. OTHERWISE, WE PLAN TO FOLLOW UP WITH AM LABS AND CONTINUE TO MONITOR. TIME SPENT ON CLINICAL ASSESSMENT, REVIEWING LABS AND IMAGING, DECISION MAKING, DOCUMENTATION WAS GREATER THAN 45 MINUTES. - Past Medical Family Social History Past Med/Fam/Surg Hx: No changes since H&P Allergies: Allergies peanut Allergy (Verified 12/08/18 09:27) - Review of Systems ROS: No change since H&P - Vital Signs and I&O's Vital Signs: Temperature 97.5 F Pulse Rate [Left Brachial] 64 Pulse Rate [Right Brachial] 72 Respiratory Rate 22 Blood Pressure [Right Arm] 131/60 Blood Pressure [Left Arm] 115/58 Blood Pressure 125/71 O2 Sat by Pulse Oximetry 95 Intake and Output: Intake & Output 05/31/20 06/01/20 06/02/20 06/03/20 11:59 11:59 11:59 11:59 Intake Total 2336 / 2336 940 / 940 1678 / 1678 2560 / 2560 Balance 2336 / 2336 940 / 940 1678 / 1678 2560 / 2560 - Physical Exam Oriented: Normal Eyes: Normal Ear: Normal Nose: Normal Throat: Normal Respiratory: Generalized, Diminished Cardiovascular: Edema (BLE TRACE EDEMA) : Normal Auscultation: Bowel Sounds: Normal Tenderness: Normal Skin: Normal Musculoskeletal: Right, Left, Leg, Swelling, Tender Psychiatric: Normal Mood Description: Calm Affect: Normal Speech Pattern: Clear, Appropriate - Laboratory and Diagnostics Result Diagrams: 06/03/20 06:00 06/03/20 06:00 Labs: 05/30/20 10:40 Blood Blood Culture - Preliminary 05/30/20 10:15 Blood Blood Culture - Preliminary 05/29/20 18:01 Urine,Clean Catch Urine Culture - Final Escherichia Coli Laboratory WBC 10.6 X10^3/uL (3.6-10.0) H 06/03/20 06:00 RBC 2.96 X10^6/uL (3.5-5.4) L 06/03/20 06:00 Hgb 9.8 g/dL (12.0-16.0) L 06/03/20 06:00 Hct 29.1 % (36.0-47.0) L 06/03/20 06:00 MCV 98.2 fL (80.0-100.0) 06/03/20 06:00 MCH 33.0 pg (27.0-34.0) 06/03/20 06:00 MCHC 33.6 g/dL (33.0-35.0) 06/03/20 06:00 RDW 18.8 % (11.6-16.5) H 06/03/20 06:00 Plt Count 183 X10^3/uL (150.0-450.0) 06/03/20 06:00 Plt Count Comment Adequate (ADEQUATE) 06/03/20 06:00 MPV 8.5 fL (7.4-11.0) 06/03/20 06:00 Neut % (Auto) 81.6 % (42.0-75.0) H 06/03/20 06:00 Lymph % (Auto) 11.8 % (21.0-51.0) L 06/03/20 06:00 [place] % (Auto) 6.5 % (0.0-13.0) 06/03/20 06:00 Eos % (Auto) 0.0 % (0.9-2.9) L 06/03/20 06:00 Baso % (Auto) 0.1 % (0.2-1.0) L 06/03/20 06:00 Neut # (Auto) 8.7 x10^3/uL (2.2-4.8) H 06/03/20 06:00 Lymph # (Auto) 1.3 X10^3/uL (1.3-2.9) 06/03/20 06:00 [place] # (Auto) 0.7 x10^3/uL (0.3-0.8) 06/03/20 06:00 Eos # (Auto) 0.0 x10^3/uL (0.0-0.2) 06/03/20 06:00 Baso # (Auto) 0.0 X10^3/uL (0.0-0.1) 06/03/20 06:00 Absolute Nucleated RBC 0.1 /100WBC 06/03/20 06:00 Total Counted 100 06/03/20 06:00 Neutrophils % (Manual) 80 % (39-76) H 06/03/20 06:00 Lymphocytes % (Manual) 9 % (13-43) L 06/03/20 06:00 Monocytes % (Manual) 11 % (4-9) H 06/03/20 06:00 Plt Morphology Comment Normal (NORMAL) 06/03/20 06:00 RBC Morphology Normal (NORMAL) 06/03/20 06:00 Sodium 148 mmol/L (136-145) H 06/03/20 06:00 Corrected Sodium 149 mmol/L (136-145) H 06/03/20 06:00 Potassium 3.8 mmol/L (3.5-5.1) 06/03/20 06:00 Chloride 114 mmol/L (98-107) H 06/03/20 06:00 Carbon Dioxide 24.2 mmol/L (21-32) 06/03/20 06:00 BUN 23 mg/dL (7-18) H 06/03/20 06:00 Creatinine 0.73 mg/dL (0.55-1.02) 06/03/20 06:00 Est GFR (MDRD) Af Amer > 60 (>60) 06/03/20 06:00 Est GFR (MDRD) Non-Af > 60 (>60) 06/03/20 06:00 Glucose 121 mg/dL (65-99) H 06/03/20 06:00 Uric Acid 2.8 mg/dL (2.6-6.0) 05/31/20 05:30 Calcium 8.5 mg/dL (8.5-10.1) 06/03/20 06:00 Corrected Calcium 9.6 mg/dL (8.5-10.1) 06/03/20 06:00 Magnesium 2.4 mg/dL (1.7-2.9) 05/29/20 12:10 Total Bilirubin 0.50 mg/dL (0.2-1.0) 06/03/20 06:00 AST 25 Units/L (15-37) 06/03/20 06:00 ALT 35 Units/L (12-78) 06/03/20 06:00 Alkaline Phosphatase 91 Units/L (46-116) 06/03/20 06:00 Creatine Kinase 22 Units/L (26-192) L 05/30/20 10:15 CK-MB (CK-2) < 1.0 ng/mL (0-4.0) 05/30/20 10:15 CK/CKMB % Calc 4.6 % (<4) 05/30/20 10:15 Troponin I 0.02 ng/mL (0-1.5) 05/30/20 10:15 C-Reactive Protein 13.30 mg/L (0-3.0) H 06/03/20 06:00 Total Protein 4.9 g/dL (6.4-8.2) L 06/03/20 06:00 Albumin 2.6 g/dL (3.4-5.0) L 06/03/20 06:00 Globulin 2.3 g/dL (2.5-4.5) L 06/03/20 06:00 Albumin/Globulin Ratio 1.1 Ratio (1.1-2.1) 06/03/20 06:00 Specimen Type Clean catch urine 05/29/20 18:01 Urine Color Straw (YELLOW) 05/29/20 18:01 Urine Appearance Clear (CLEAR) 05/29/20 18:01 Urine pH 8.0 (5.0 - 8.0) 05/29/20 18:01 Ur Specific [place] 1.015 (1.000-1.030) 05/29/20 18:01 Urine Protein Negative (NEGATIVE) 05/29/20 18:01 Urine Glucose (UA) Negative (NEGATIVE) 05/29/20 18:01 Urine Ketones Negative (NEGATIVE) 05/29/20 18:01 Urine Occult Blood Negative (NEGATIVE) 05/29/20 18:01 Urine Nitrite Negative (NEGATIVE) 05/29/20 18:01 Urine Bilirubin Negative (NEGATIVE) 05/29/20 18:01 Urine Urobilinogen Normal (NORMAL) 05/29/20 18:01 Ur Leukocyte Esterase 1+ (NEGATIVE) 05/29/20 18:01 Urine RBC None seen /HPF (0-3) 05/29/20 18:01 Urine WBC 3-5 /HPF (0-5) 05/29/20 18:01 Ur Squamous Epith Cells Few /HPF (NEGATIVE) 05/29/20 18:01 Amorphous Sediment 1+ /HPF (NEGATIVE) 05/29/20 18:01 Urine Bacteria 1+ /HPF (NEGATIVE) 05/29/20 18:01 Ur Culture Indicated? Yes/culture set up 05/29/20 18:01 SARS CoV-2 RNA Rapid ABDOUL Negative (NEGATIVE) 05/29/20 11:24 - Plan (1) Dehydration Status: Acute Plan: NORMAL SALINE AT 75 ML/HR, ROCEPHIN 1G IV DAILY, LOVENOX 40MG IV Q8H, SOLU-MEDROL 40MG IV Q8H, HEMOCYTE PLUS DAILY, AND THE POTASSIUM AND MAGNESIUM PROTOCOLS. (2) Urinary tract infection Status: Acute Qualifiers: Urinary tract infection type: acute cystitis Hematuria presence: without hematuria Qualified Code(s): N30.00 - Acute cystitis without hematuria (3) Ataxia Status: Acute (4) Hypotension Status: Acute Qualifiers: Hypotension type: unspecified hypotension type Qualified Code(s): I95.9 - Hypotension, unspecified (5) Generalized weakness Status: Acute (6) Hypokalemia Status: Acute
--- NOTE | 2020-06-03 10:46 | PCM.PROG ---
Progress Note - Progress Note for Day of Date of Exam: 06/02/20 - Subjective Subjective: WAS ADMITTED FOR TREATMENT OF DEHYDRATION, UTI, ATAXIA, HYPOTENSION, GENERALIZED WEAKNESS, AND HYPOKALEMIA. TODAY, SHE IS ALERT AND ORIENTED, LYING IN BED ON MORNING ROUNDS. SHE CONTINUES WITH COMPLAINTS OF GENERALIZED WEAKNESS, DECREASED APPETITE, AND LOWER EXTREMITY WEAKNESS. PAIN HAS IMPROVED, BUT STAFF CONTINUES TO REPORTS THAT PATIENT REQUIRES ASSISTANCE ON AMBULATION DUE TO WEAKNESS TO LOWER EXTREMITIES. PATIENTS DAUGHTER REPORTS THAT PATIENT RESTED BETTER THROUGHOUT THE NIGHT. ON EXAMINATION, HEART IS REGULAR IN RATE AND RHYTHM. BILATERAL LUNGS ARE NOTED WITH DIMINISHED LUNG SOUNDS THROUGHOUT. ABDOMEN IS ROUND, SOFT, AND NON-TENDER WITH NORMAL BOWEL SOUNDS NOTED IN ALL QUADRANTS. SHE CONTINUES TO HAVE MILD TENDERNESS UPON EXAMINATION OF LOWER EXTREMITIES. THEY DO NOT APPEAR TO BE TENDER TO TOUCH THIS MORNING. NO EDEMA NOTED. HER VITALS THIS MORNING ARE: 98.6-66-20-94%-132/60. LABS WERE OBTAINED. ABNORMAL LAB VALUES INCLUDE THE FOLLOWING: RBC 2.83, HGB 9.6, HCT 27.7, SODIUM 146, CHLORIDE 112, BUN 21, GLUCOSE 101, CALCIUM 8.4, CRP 24, TOTAL PROTEIN 4.7, ALBUMIN 2.3, GLOBULIN 2.4. URINE CULTURE REPORTS GROWTH OF E.COLI. PHYSICAL THERAPY IS WORKING WITH PATIENT. SHE IS CURRENTLY RECEIVING NORMAL SALINE AT 75 ML/HR, PROCALAMINE AT 40 ML/HR, ALBUMIN 25% IV DAILY, ROCEPHIN 1G IV DAILY, LOVENOX 40MG IV Q8H, SOLU-MEDROL 40MG IV Q8H, HEMOCYTE PLUS, AND THE POTASSIUM AND MAGNESIUM PROTOCOLS. WE RESUMED HER HOME MEDICATIONS OF SYNTHROID 50MCG PO DAILY AND PROTONIX 40MG PO DAILY. OTHERWISE, WE PLAN TO FOLLOW UP WITH AM LABS AND CONTINUE TO MONITOR. TIME SPENT ON CLINICAL ASSESSMENT, REVIEWING LABS AND IMAGING, DECISION MAKING, DOCUMENTATION WAS GREATER THAN 45 MINUTES. - Past Medical Family Social History Past Med/Fam/Surg Hx: No changes since H&P Allergies: Allergies peanut Allergy (Verified 12/08/18 09:27) - Review of Systems ROS: No change since H&P - Vital Signs and I&O's Vital Signs: Temperature 97.5 F Pulse Rate [Left Brachial] 64 Pulse Rate [Right Brachial] 72 Respiratory Rate 22 Blood Pressure [Right Arm] 131/60 Blood Pressure [Left Arm] 115/58 Blood Pressure 125/71 O2 Sat by Pulse Oximetry 95 Intake and Output: Intake & Output 05/31/20 06/01/20 06/02/20 06/03/20 11:59 11:59 11:59 11:59 Intake Total 2336 / 2336 940 / 940 1678 / 1678 2560 / 2560 Balance 2336 / 2336 940 / 940 1678 / 1678 2560 / 2560 - Physical Exam Oriented: Normal Eyes: Normal Ear: Normal Nose: Normal Throat: Normal Respiratory: Generalized, Diminished : Normal Auscultation: Bowel Sounds: Normal Palpation: Normal Tenderness: Normal Skin: Normal Musculoskeletal: Right, Left, Leg, Swelling, Tender Psychiatric: Normal Mood Description: Calm Affect: Normal Speech Pattern: Clear, Appropriate - Laboratory and Diagnostics Result Diagrams: 06/03/20 06:00 06/03/20 06:00 Labs: 05/30/20 10:40 Blood Blood Culture - Preliminary 05/30/20 10:15 Blood Blood Culture - Preliminary 05/29/20 18:01 Urine,Clean Catch Urine Culture - Final Escherichia Coli Laboratory WBC 10.6 X10^3/uL (3.6-10.0) H 06/03/20 06:00 RBC 2.96 X10^6/uL (3.5-5.4) L 06/03/20 06:00 Hgb 9.8 g/dL (12.0-16.0) L 06/03/20 06:00 Hct 29.1 % (36.0-47.0) L 06/03/20 06:00 MCV 98.2 fL (80.0-100.0) 06/03/20 06:00 MCH 33.0 pg (27.0-34.0) 06/03/20 06:00 MCHC 33.6 g/dL (33.0-35.0) 06/03/20 06:00 RDW 18.8 % (11.6-16.5) H 06/03/20 06:00 Plt Count 183 X10^3/uL (150.0-450.0) 06/03/20 06:00 Plt Count Comment Adequate (ADEQUATE) 06/03/20 06:00 MPV 8.5 fL (7.4-11.0) 06/03/20 06:00 Neut % (Auto) 81.6 % (42.0-75.0) H 06/03/20 06:00 Lymph % (Auto) 11.8 % (21.0-51.0) L 06/03/20 06:00 [place] % (Auto) 6.5 % (0.0-13.0) 06/03/20 06:00 Eos % (Auto) 0.0 % (0.9-2.9) L 06/03/20 06:00 Baso % (Auto) 0.1 % (0.2-1.0) L 06/03/20 06:00 Neut # (Auto) 8.7 x10^3/uL (2.2-4.8) H 06/03/20 06:00 Lymph # (Auto) 1.3 X10^3/uL (1.3-2.9) 06/03/20 06:00 [place] # (Auto) 0.7 x10^3/uL (0.3-0.8) 06/03/20 06:00 Eos # (Auto) 0.0 x10^3/uL (0.0-0.2) 06/03/20 06:00 Baso # (Auto) 0.0 X10^3/uL (0.0-0.1) 06/03/20 06:00 Absolute Nucleated RBC 0.1 /100WBC 06/03/20 06:00 Total Counted 100 06/03/20 06:00 Neutrophils % (Manual) 80 % (39-76) H 06/03/20 06:00 Lymphocytes % (Manual) 9 % (13-43) L 06/03/20 06:00 Monocytes % (Manual) 11 % (4-9) H 06/03/20 06:00 Plt Morphology Comment Normal (NORMAL) 06/03/20 06:00 RBC Morphology Normal (NORMAL) 06/03/20 06:00 Sodium 148 mmol/L (136-145) H 06/03/20 06:00 Corrected Sodium 149 mmol/L (136-145) H 06/03/20 06:00 Potassium 3.8 mmol/L (3.5-5.1) 06/03/20 06:00 Chloride 114 mmol/L (98-107) H 06/03/20 06:00 Carbon Dioxide 24.2 mmol/L (21-32) 06/03/20 06:00 BUN 23 mg/dL (7-18) H 06/03/20 06:00 Creatinine 0.73 mg/dL (0.55-1.02) 06/03/20 06:00 Est GFR (MDRD) Af Amer > 60 (>60) 06/03/20 06:00 Est GFR (MDRD) Non-Af > 60 (>60) 06/03/20 06:00 Glucose 121 mg/dL (65-99) H 06/03/20 06:00 Uric Acid 2.8 mg/dL (2.6-6.0) 05/31/20 05:30 Calcium 8.5 mg/dL (8.5-10.1) 06/03/20 06:00 Corrected Calcium 9.6 mg/dL (8.5-10.1) 06/03/20 06:00 Magnesium 2.4 mg/dL (1.7-2.9) 05/29/20 12:10 Total Bilirubin 0.50 mg/dL (0.2-1.0) 06/03/20 06:00 AST 25 Units/L (15-37) 06/03/20 06:00 ALT 35 Units/L (12-78) 06/03/20 06:00 Alkaline Phosphatase 91 Units/L (46-116) 06/03/20 06:00 Creatine Kinase 22 Units/L (26-192) L 05/30/20 10:15 CK-MB (CK-2) < 1.0 ng/mL (0-4.0) 05/30/20 10:15 CK/CKMB % Calc 4.6 % (<4) 05/30/20 10:15 Troponin I 0.02 ng/mL (0-1.5) 05/30/20 10:15 C-Reactive Protein 13.30 mg/L (0-3.0) H 06/03/20 06:00 Total Protein 4.9 g/dL (6.4-8.2) L 06/03/20 06:00 Albumin 2.6 g/dL (3.4-5.0) L 06/03/20 06:00 Globulin 2.3 g/dL (2.5-4.5) L 06/03/20 06:00 Albumin/Globulin Ratio 1.1 Ratio (1.1-2.1) 06/03/20 06:00 Specimen Type Clean catch urine 05/29/20 18:01 Urine Color Straw (YELLOW) 05/29/20 18:01 Urine Appearance Clear (CLEAR) 05/29/20 18:01 Urine pH 8.0 (5.0 - 8.0) 05/29/20 18:01 Ur Specific [place] 1.015 (1.000-1.030) 05/29/20 18:01 Urine Protein Negative (NEGATIVE) 05/29/20 18:01 Urine Glucose (UA) Negative (NEGATIVE) 05/29/20 18:01 Urine Ketones Negative (NEGATIVE) 05/29/20 18:01 Urine Occult Blood Negative (NEGATIVE) 05/29/20 18:01 Urine Nitrite Negative (NEGATIVE) 05/29/20 18:01 Urine Bilirubin Negative (NEGATIVE) 05/29/20 18:01 Urine Urobilinogen Normal (NORMAL) 05/29/20 18:01 Ur Leukocyte Esterase 1+ (NEGATIVE) 05/29/20 18:01 Urine RBC None seen /HPF (0-3) 05/29/20 18:01 Urine WBC 3-5 /HPF (0-5) 05/29/20 18:01 Ur Squamous Epith Cells Few /HPF (NEGATIVE) 05/29/20 18:01 Amorphous Sediment 1+ /HPF (NEGATIVE) 05/29/20 18:01 Urine Bacteria 1+ /HPF (NEGATIVE) 05/29/20 18:01 Ur Culture Indicated? Yes/culture set up 05/29/20 18:01 SARS CoV-2 RNA Rapid ABDOUL Negative (NEGATIVE) 05/29/20 11:24 - Plan (1) Dehydration Status: Acute Plan: NORMAL SALINE AT 75 ML/HR, PROCAL AT 40ml/hr, ALBUMIN 25% IV DAILY, ROCEPHIN 1G IV DAILY, LOVENOX 40MG IV Q8H, SOLU-MEDROL 40MG IV Q8H, HEMOCYTE PLUS DAILY, AND THE POTASSIUM AND MAGNESIUM PROTOCOLS. (2) Urinary tract infection Status: Acute Qualifiers: Urinary tract infection type: acute cystitis Hematuria presence: without hematuria Qualified Code(s): N30.00 - Acute cystitis without hematuria (3) Ataxia Status: Acute (4) Hypotension Status: Acute Qualifiers: Hypotension type: unspecified hypotension type Qualified Code(s): I95.9 - Hypotension, unspecified (5) Generalized weakness Status: Acute (6) Hypokalemia Status: Acute
[2020-06-03] MEDS: ALBUMIN HUMAN 25%- 100 ML 100 ML IV SCH (11:00)
[2020-06-03 17:38] VITALS: BP 147/67
== END 2020-06-03 17:45 | disposition home health service (06) | DRG 690 ==
LOC: MED/SURG
PROVIDERS: ADMIT Internal Medicine; ATTEND Internal Medicine
DX: I95.89 Other hypotension; R26.0 Ataxic gait; R53.1 Weakness; R13.11 Dysphagia, oral phase; Z20.822 Contact with and (suspected) exposure to COVID-19; B96.29 Other Escherichia coli [E. coli] as the cause of diseases classified elsewhere; R79.82 Elevated C-reactive protein (CRP); R41.82 Altered mental status, unspecified; K21.9 Gastro-esophageal reflux disease without esophagitis; H53.9 Unspecified visual disturbance; E86.0 Dehydration; R42 Dizziness and giddiness; N30.00 Acute cystitis without hematuria; E87.6 Hypokalemia; R60.0 Localized edema

== ENCOUNTER 2020-07-08 13:04 | Inpatient (IN) ==
[2020-07-08 15:28] LABS: BASOPHILS % (AUTO) 0.2 % (0.2-1.0); EOSINOPHILS % (AUTO) 0.1 % (0.9-2.9); HEMOGLOBIN 12.9 g/dL (12.0-16.0); LYMPHOCYTES # (AUTO) 1.9 X10^3/uL (1.3-2.9); MEAN CORPUSCULAR HEMOGLOBIN 34.4 pg (27.0-34.0); MEAN CORPUSCULAR VOLUME 101.2 fL (80.0-100.0); MEAN PLATELET VOLUME 8.2 fL (7.4-11.0); MONOCYTES # (AUTO) 1.3 x10^3/uL (0.3-0.8); NEUTROPHILS # (AUTO) 7.5 x10^3/uL (2.2-4.8); NEUTROPHILS % (AUTO) 69.7 % (42.0-75.0); PLATELET COUNT 179 X10^3/uL (150.0-450.0); RED BLOOD COUNT 3.75 X10^6/uL (3.5-5.4); WHITE BLOOD COUNT 10.8 X10^3/uL (3.6-10.0)
[2020-07-08 15:44] LABS: ANISOCYTOSIS 1+; BAND NEUTROPHILS % 1 % (0-10); PLATELET MORPHOLOGY COMMENT NORMAL (NORMAL); POIKILOCYTOSIS SLIGHT
--- NOTE | 2020-07-08 15:47 | RAD ---
HISTORYLETHARGIC, AMSSTUDYCHEST, 1 VIEWCOMPARISONPortable chest May 29, 2020FINDINGSThe trachea is midline. The cardiac silhouette is unremarkable . The lungs are clear without focal infiltrate or effusion. The bony thorax is unremarkable.IMPRESSIONNo acute cardiopulmonary disease. And no significant change compared to May 29, 2020.Electronically signed by: JORGE RICKS (July 08, 2020 15:45:27)
[2020-07-08 15:54] LABS: ALANINE AMINOTRANSFERASE 37 Units/L (12-78); ALBUMIN 2.7 g/dL (3.4-5.0); ALKALINE PHOSPHATASE 91 Units/L (46-116); ASPARTATE AMINO TRANSFERASE 24 Units/L (15-37); BLOOD UREA NITROGEN 44 mg/dL (7-18); CALCIUM 9.3 mg/dL (8.5-10.1); CHLORIDE 104 mmol/L (98-107); COR CA(FOR HYPOALB) 10.3 mg/dL (8.5-10.1); CREATINE KINASE 11 Units/L (26-192); CREATINE KINASE MB 1.1 ng/mL (0-4.0); CREATININE 1.51 mg/dL (0.55-1.02); SODIUM 141 mmol/L (136-145); TOTAL PROTEIN 5.4 g/dL (6.4-8.2); TROPONIN I < 0.02 ng/mL (0-1.5); eGFR NON BLACK RACES 36 (>60)
[2020-07-08] MEDS ORDERED: XYLOCAINE 1 % (PLAIN) ONE (16:52)
--- NOTE | 2020-07-08 20:19 | DR.UPDATE ---
H&P Update History and Physical Update: History and Physical reviewed and patient examined. Changes noted: NO Yes with the following:will place rijtlc/sltrasound H&P Reviewed: Yes Patient was examined?: Yes Procedures (ALL) - Central Line Placement PCM.CLCO: written consent Time out performed: Yes Patient placed pm monitor/pulse ox: Yes MD prep: mask, gown, gloves, other Centrial line prep: chlorhexidine scrub, sterile drapes applied Local anesthsia used: lidocane 1% Ultrasound used for placement: Yes (right IJ id'd via u/s. cannulation visualized on first attempt) Central line lumen ininserted: triple Post procedure: sutured in place, good blood return, all ports aspirated, flushed,capped, sterile dressing applied Post procedure xray: tip oc catheter in good position, no pneumothorax seen Patient tolerated procedure: Yes Complications: none
[2020-07-08] MEDS: NS 1000 ML 1,000 ML IV SCH (21:00)
--- NOTE | 2020-07-08 21:21 | RAD ---
EXAM: CHEST X-RAYHISTORY: Verification of central line position status post line placement.TECHNIQUE: AP chest x-ray dated July 08, 2020 at 8:02 PM.COMPARISON: CXR dated July 08, 2020 at 3:21 PMFINDINGS:There is a new right internal jugular central venous catheter with distal tip in SVC (adequate position). Recommend careful clinical correlation to ensure venous blood return.The heart size and mediastinum are within normal limits. The lung lee and costophrenic angles are clear. There is no acute parenchymal infiltrate, pleural effusion, or pneumothorax seen. The visualized bony structures are within normal limits.IMPRESSION:1. No evidence for acute cardiopulmonary disease seen.2. New right internal jugular central venous catheter with distal tip in SVC (adequate position). Recommend careful clinical correlation to ensure venous blood return.3. Otherwise, no significant interval change from the previous exam.Electronically signed by: Milagros Newberry (July 08, 2020 21:19:13)
[2020-07-08 22:07] LABS: CKMB % 5.9 % (<4); TROPONIN I 0.02 ng/mL (0-1.5)
[2020-07-08 22:35] LABS: BILIRUBIN,URINE NEGATIVE (NEGATIVE); BLOOD/HEMOGLOBIN,URINE 1+ (NEGATIVE); GLUCOSE, URINE NEGATIVE (NEGATIVE); KETONES,URINE NEGATIVE (NEGATIVE); LEUKOCYTE ESTERASE ,URINE NEGATIVE (NEGATIVE); NITRITES,URINE NEGATIVE (NEGATIVE); PH,URINE 6.5 (5.0 - 8.0); PROTEIN,URINE NEGATIVE (NEGATIVE); UROBILINOGEN,URINE NORMAL (NORMAL)
[2020-07-08 22:44] LABS: APPEARANCE,URINE CLEAR (CLEAR); BACTERIA,URINE 1+ /HPF (NEGATIVE); COLOR,URINE STRAW (YELLOW); HYALINE CASTS, URINE FEW /LPF (NEGATIVE); RBC,URINE 0-2 /HPF (0-3); SQUAMOUS EPITHELIAL CELL,UR FEW /HPF (NEGATIVE)
[2020-07-09 03:00] LABS: BASOPHILS % (AUTO) 0.3 % (0.2-1.0); EOSINOPHILS % (AUTO) 0.1 % (0.9-2.9); HEMATOCRIT 34.5 % (36.0-47.0); HEMOGLOBIN 11.7 g/dL (12.0-16.0); LYMPHOCYTES # (AUTO) 2.1 X10^3/uL (1.3-2.9); LYMPHOCYTES % (AUTO) 22.6 % (21.0-51.0); MEAN CORPUSCULAR HEMOGLOBIN 34.2 pg (27.0-34.0); MEAN CORPUSCULAR HGB CONC 33.8 g/dL (33.0-35.0); MEAN CORPUSCULAR VOLUME 101.4 fL (80.0-100.0); MEAN PLATELET VOLUME 8.4 fL (7.4-11.0); MONOCYTES # (AUTO) 1.2 x10^3/uL (0.3-0.8); MONOCYTES % (AUTO) 12.4 % (0.0-13.0); NEUTROPHILS # (AUTO) 6.1 x10^3/uL (2.2-4.8); NEUTROPHILS % (AUTO) 64.6 % (42.0-75.0); PLATELET COUNT 167 X10^3/uL (150.0-450.0); RED CELL DISTRIBUTION WIDTH 17.8 % (11.6-16.5); WHITE BLOOD COUNT 9.5 X10^3/uL (3.6-10.0)
[2020-07-09 03:09] LABS: ALANINE AMINOTRANSFERASE 30 Units/L (12-78); ALBUMIN 2.4 g/dL (3.4-5.0); ALKALINE PHOSPHATASE 81 Units/L (46-116); ASPARTATE AMINO TRANSFERASE 22 Units/L (15-37); BLOOD UREA NITROGEN 43 mg/dL (7-18); CARBON DIOXIDE 29.1 mmol/L (21-32); CHLORIDE 106 mmol/L (98-107); COR CA(FOR HYPOALB) 10.3 mg/dL (8.5-10.1); CREATININE 1.23 mg/dL (0.55-1.02); SODIUM 142 mmol/L (136-145); TOTAL PROTEIN 4.7 g/dL (6.4-8.2); eGFR NON BLACK RACES 45 (>60)
[2020-07-09 03:20] LABS: CKMB % 5.3 % (<4); TROPONIN I 0.06 ng/mL (0-1.5)
[2020-07-09 03:38] LABS: PLATELET MORPHOLOGY COMMENT NORMAL (NORMAL)
[2020-07-09] MEDS: NS 1000 ML 1,000 ML IV SCH ×2 (06:45→09:34)
[2020-07-09] MEDS ORDERED: HEMOCYTE-PLUS PO SCH (09:00)
[2020-07-09] MEDS: MAXZIDE 37.5/25 MG PO SCH (09:21)
[2020-07-09] MEDS: PROTONIX TAB 40 MG PO SCH ×2 (09:21→22:08)
[2020-07-09] MEDS: FOLIC ACID TAB 1 MG PO SCH (09:21)
[2020-07-09] MEDS: SYNTHROID 50 mcg TAB PO SCH (09:22)
--- NOTE | 2020-07-09 10:37 | DR.H&P ---
H&P - History & Physical for Day of: H&P Date: 07/08/20 - Chief Complaint Chief Complaint: LETHARGIC, WEAKNESS, INCONTINENCE - History of Present Illness History of Present Illness: IS A 75 YEAR OLD PATIENT OF OURS WHO PRESENTED TO THE OFFICE WITH REPORTS OF SEVERE GENERALIZED WEAKNESS, INCREASED DROWSINESS, DECREASED APPETIE, AND INCONTINENCE. SHE WAS RECENTLY RELEASED FROM THE HOSPITAL IN [place], [place]. THERE, SHE WAS TREATED FOR BLOOD CLOTS TO THE LOWER EXTREMITIES AND PULMONARY EMBOLI. SHE WAS SENT HOME ON ELIQUIS. A LUMBAR PUNCTURE WAS PERFORMED ON 07/05/20, HOWEVER, RESULTS ARE STILL PENDING. INITIALLY AFTER RETURNING HOME, PATIENT WAS ABLE TO AMBULATE WITH WALKER AND WAS ABLE TO FEED HERSELF. OVER THE PAST 3-4 DAYS, PATIENT HAS BEEN UNABLE TO AMBULATE, FEED HERSELF, HAS BEEN URINATING ON HERSELF, AND HAS HAD INCREASED DROWSINESS AND CONFUSION. WHILE EXAMINING PATIENT IN THE OFFICE, SHE WAS UNABLE TO HOLD HER HEAD UP OR ANSWER QUESTIONS APPROPRIATELY DUE TO DROWSINESS. SHE WAS ADMITTED TO THE HOSPITAL FOR FURTHER EVALUATION AND TREATMENT. ON ARRIVAL TO THE HOSPITAL, VITALS WERE 96.2-85-18-95%-117/79. LABS WERE OBTAINED. ABNORMAL LAB VALUES INCLUDE THE FOLLOWING: WBC 10.8, BUN 44, CREATININE 1.51, TOTAL BILI 1.50, CREATINE KINASE 11, TOTAL PROTEIN 5.4, ALBUMIN 2.7. URINALYSIS WAS UNREMARKABLE. COVID-19 NEGATIVE. A URINE CULTURE WAS SET UP. A CHEST XRAY WAS OBTAINED AND REVEALED: The trachea is midline. The cardiac silhouette is unremarkable. The lungs are clear without focal infiltrate or effusion. The bony thorax is unremarkable. EKG REVEALED: SINUS RHYTHM WITH HR 83. SHE WAS STARTED ON NORMAL SALINE AT 80 ML/HR AND HER HOME MEDICATIONS WERE RESUMED. WE PLAN TO OBTAIN A BRAIN MRI/MRA WITH CONTRAST. PHYSICAL/OCCUPATIONAL THERAPIES WILL EVALUATE PATIENT. WE WILL OBTAIN ALL RECORDS FROM [facility]. OTHERWISE, WE PLAN TO FOLLOW UP WITH AM LABS AND CONTINUE TO MONITOR. TIME SPENT ON CLINICAL ASSESSMENT, REVIEWING LABS AND IMAGING, DECISION MAKING, AND DOCUMENTATION GREATER THAN 75 MINUTES. - Past Medical History Past Medical History: Angina, Arthritis, GERD, Hypertension Additional Medical History: ANGINA, DYSPHAGIA - Past Surgical History Surgical History: Cholecystectomy, [employer] Surgery, Tonsillectomy Additional Surgical History: TUBAL, BLADDER TACT - Family History Family Medical History: Cancer - Social History Does patient currently use any type of tobacco product: No Have you used tobacco products in the last 12 months: No Type of Tobacco Use: None Does any household member use tobacco: No Alcohol Use: None Drug Use: None - Medications Home Medications: peanut Allergy (Verified 12/08/18 09:27) CONTINUE taking the following medications B [id number] [Ferrocite Plus] 1 tab PO DAILY 07/09/20 [History] apixaban [Eliquis] 5 mg PO BID 07/09/20 [History] folic acid 2 mg PO DAILY 07/09/20 [History] gabapentin 100 mg PO TID 07/09/20 [History] methotrexate sodium 12.5 mg PO WEEKLY 07/09/20 [History] tramadol 50 mg PO TID PRN 07/09/20 [History] triamterene-hydrochlorothiazid 1 tab PO DAILY 07/09/20 [History] - Review of Systems Constitutional: See HPI, Weakness, Malaise Eyes: No Symptoms Reported ENT: No Symptoms Reported Respiratory: No Symptoms Reported Cardiovascular: No Symptoms Reported Gastrointestinal: No Symptoms Reported Genitourinary: See HPI, Incontinence Musculoskeletal: No Symptoms Reported Skin: No Symptoms Reported Neurological: See HPI, Weakness, Incoordination, Confusion - Physical Exam Vital Signs: Temperature 97.9 F Pulse Rate [Left Brachial] 76 Respiratory Rate 14 Blood Pressure [Right Arm] 131/60 Blood Pressure [Left Arm] 119/76 O2 Sat by Pulse Oximetry 96 Oriented: Not Oriented Eyes: Normal Ear: Normal Nose: Normal Throat: Normal Respiratory: Diminished Throughout Cardiovascular: Normal : Normal Auscultation: Bowel Sounds: Normal Palpation: Normal Tenderness: Normal Skin: Normal Musculoskeletal: Instability Psychiatric: Normal Mood Description: Calm Affect: Normal Speech Pattern: Inappropriate, Delayed - Assessment/Plan (1) Lethargy Status: Acute Plan: ADMIT, NORMAL SALINE AT 80 ML/HR, RESUME HOME MEDICATIONS, OBTAIN BRAIN MRI/MRA WITH CONTRAST (2) Generalized weakness Status: Acute (3) Altered mental status Qualifiers: Altered mental status type: transient alteration of awareness Qualified Code(s): R40.4 - Transient alteration of awareness Status: Acute (4) Incontinence Qualifiers: Incontinence type: urinary Urinary Incontinence type: urinary incontinence without sensory awareness Qualified Code(s): N39.42 - Incontinence without sensory awareness Status: Acute - Allergies Allergies/Adverse Reactions: Allergies Allergy/AdvReac Type Severity Reaction Status Date / Time peanut Allergy Verified 12/08/18 09:27
--- NOTE | 2020-07-09 11:07 | PCM.PROG ---
Progress Note - Progress Note for Day of Date of Exam: 07/09/20 - Subjective Subjective: WAS ADMITTED DUE TO LETHARGY, GENERALIZED WEAKNESS, AMS, AND INCONTINENCE. TODAY, SHE CONTINUES WITH DROWSINESS AND WEAKNESS. SHE DOES AWAKEN TO VERBAL STIMULI AND IS ABLE TO FOLLOW SOME COMMANDS. SHE CONTINUES WITH WEAKNESS THIS MORNING. STAFF REPORTS THAT SHE REQUIRES MODERATE ASSISTANCE FOR ADLs. ON EXAMINATION, HEART IS REGULAR IN RATE AND RHYTHM. BILATERAL LUNGS ARE NOTED WITH DIMINISHED LUNG SOUNDS THROUGHOUT. ABDOMEN IS ROUND, SOFT, AND NON-TENDER WITH NORMAL BOWEL SOUNDS IN ALL QUADRANTS. HER VITALS THIS MORNING ARE: 97.9-76-14-96%-119/76. LABS WERE OBTAINED. ABNORMAL LAB VALUES INCLUDE THE FOLLOWING: RBC 3.40, HGB 11.7, HCT 34.5, POTASSIUM 3.2, BUN 43, CREATININE 1.23, TOTAL BILI 1.60, TOTAL PROTEIN 4.7, ALBUMIN 2.4. A URINE CULTURE IS PENDING. SHE IS CURRENTLY RECEIVING NORMAL SALINE AT 80 ML/HR AND HER HOME MEDICATIONS WERE RESUMED. A CENTRAL LINE WAS PLACED YESTERDAY DUE TO POOR VENOUS ACCESS. WE WILL CONTINUE WITH CURRENT PLAN OF CARE TODAY. WE WILL OBTAIN A BRAIN MRI/MRA WITH CONTRAST TODAY. OTHERWISE, WE PLAN TO FOLLOW UP WITH AM LABS AND CONTINUE TO MONITOR. TIME SPENT ON CLINICAL ASSESSMENT, REVIEWING LABS AND IMAGING, DECISION MAKING, AND DOCUMENTATION GREATER THAN 45 MINUTES. - Past Medical Family Social History Past Med/Fam/Surg Hx: No changes since H&P Allergies: Allergies peanut Allergy (Verified 12/08/18 09:27) - Review of Systems ROS: No change since H&P - Vital Signs and I&O's Vital Signs: Temperature 97.9 F Pulse Rate [Left Brachial] 76 Respiratory Rate 14 Blood Pressure [Right Arm] 131/60 Blood Pressure [Left Arm] 119/76 O2 Sat by Pulse Oximetry 96 Intake and Output: Intake & Output 07/06/20 07/07/20 07/08/20 07/09/20 11:59 11:59 11:59 11:59 Intake Total 1008 / 1008 Output Total 256 / 256 Balance 752 / 752 - Physical Exam Oriented: Person Eyes: Normal Ear: Normal Nose: Normal Throat: Normal Respiratory: Generalized, Diminished Cardiovascular: Normal : Normal Auscultation: Bowel Sounds: Normal Palpation: Normal Tenderness: Normal Skin: Normal Musculoskeletal: Instability Psychiatric: Normal Mood Description: Calm Affect: Normal Speech Pattern: Inappropriate, Delayed - Laboratory and Diagnostics Result Diagrams: 07/09/20 02:45 07/09/20 02:45 Labs: Laboratory WBC 9.5 X10^3/uL (3.6-10.0) 07/09/20 02:45 RBC 3.40 X10^6/uL (3.5-5.4) L 07/09/20 02:45 Hgb 11.7 g/dL (12.0-16.0) L 07/09/20 02:45 Hct 34.5 % (36.0-47.0) L 07/09/20 02:45 MCV 101.4 fL (80.0-100.0) H 07/09/20 02:45 MCH 34.2 pg (27.0-34.0) H 07/09/20 02:45 MCHC 33.8 g/dL (33.0-35.0) 07/09/20 02:45 RDW 17.8 % (11.6-16.5) H 07/09/20 02:45 Plt Count 167 X10^3/uL (150.0-450.0) 07/09/20 02:45 Plt Count Comment Adequate (ADEQUATE) 07/09/20 02:45 MPV 8.4 fL (7.4-11.0) 07/09/20 02:45 Neut % (Auto) 64.6 % (42.0-75.0) 07/09/20 02:45 Lymph % (Auto) 22.6 % (21.0-51.0) 07/09/20 02:45 [place] % (Auto) 12.4 % (0.0-13.0) 07/09/20 02:45 Eos % (Auto) 0.1 % (0.9-2.9) L 07/09/20 02:45 Baso % (Auto) 0.3 % (0.2-1.0) 07/09/20 02:45 Neut # (Auto) 6.1 x10^3/uL (2.2-4.8) H 07/09/20 02:45 Lymph # (Auto) 2.1 X10^3/uL (1.3-2.9) 07/09/20 02:45 [place] # (Auto) 1.2 x10^3/uL (0.3-0.8) H 07/09/20 02:45 Eos # (Auto) 0.0 x10^3/uL (0.0-0.2) 07/09/20 02:45 Baso # (Auto) 0.0 X10^3/uL (0.0-0.1) 07/09/20 02:45 Absolute Nucleated RBC 0.1 /100WBC 07/09/20 02:45 Total Counted 100 07/09/20 02:45 Neutrophils % (Manual) 70 % (39-76) 07/09/20 02:45 Band Neutrophils % 1 % (0-10) 07/08/20 15:14 Lymphocytes % (Manual) 26 % (13-43) 07/09/20 02:45 Monocytes % (Manual) 4 % (4-9) 07/09/20 02:45 Eosinophils % (Manual) 1 % (0-6) 07/08/20 15:14 Plt Morphology Comment Normal (NORMAL) 07/09/20 02:45 RBC Morphology Normal (NORMAL) 07/09/20 02:45 Poikilocytosis Slight A 07/08/20 15:14 Anisocytosis 1+ A 07/08/20 15:14 PT 15.4 SECONDS (11.8-14.3) 07/09/20 08:50 INR Target Range - 07/09/20 08:50 INR 1.28 (0.8-1.3) 07/09/20 08:50 APTT 23.5 SECONDS (22.9-36.5) 07/09/20 08:50 PTT Comment - 07/09/20 08:50 Sodium 142 mmol/L (136-145) 07/09/20 02:45 Corrected Sodium TNP 07/09/20 02:45 Potassium 3.2 mmol/L (3.5-5.1) L 07/09/20 02:45 Chloride 106 mmol/L (98-107) 07/09/20 02:45 Carbon Dioxide 29.1 mmol/L (21-32) 07/09/20 02:45 BUN 43 mg/dL (7-18) H 07/09/20 02:45 Creatinine 1.23 mg/dL (0.55-1.02) H 07/09/20 02:45 Est GFR (MDRD) Af Amer 55 (>60) L 07/09/20 02:45 Est GFR (MDRD) Non-Af 45 (>60) L 07/09/20 02:45 Glucose 95 mg/dL (65-99) 07/09/20 02:45 Calcium 9.0 mg/dL (8.5-10.1) 07/09/20 02:45 Corrected Calcium 10.3 mg/dL (8.5-10.1) H 07/09/20 02:45 Magnesium 2.1 mg/dL (1.7-2.9) 07/09/20 02:45 Total Bilirubin 1.60 mg/dL (0.2-1.0) H 07/09/20 02:45 AST 22 Units/L (15-37) 07/09/20 02:45 ALT 30 Units/L (12-78) 07/09/20 02:45 Alkaline Phosphatase 81 Units/L (46-116) 07/09/20 02:45 Ammonia 10 umol/L (11-32) L 07/09/20 02:45 Creatine Kinase 19 Units/L (26-192) L 07/09/20 02:45 CK-MB (CK-2) 1.0 ng/mL (0-4.0) 07/09/20 02:45 CK/CKMB % Calc 5.3 % (<4) 07/09/20 02:45 Troponin I 0.06 ng/mL (0-1.5) 07/09/20 02:45 C-Reactive Protein 1.20 mg/L (0-3.0) 07/09/20 02:45 Total Protein 4.7 g/dL (6.4-8.2) L 07/09/20 02:45 Albumin 2.4 g/dL (3.4-5.0) L 07/09/20 02:45 Globulin 2.3 g/dL (2.5-4.5) L 07/09/20 02:45 Albumin/Globulin Ratio 1.0 Ratio (1.1-2.1) L 07/09/20 02:45 Specimen Type Catherized urine 07/08/20 22:00 Urine Color Straw (YELLOW) 07/08/20 22:00 Urine Appearance Clear (CLEAR) 07/08/20 22:00 Urine pH 6.5 (5.0 - 8.0) 07/08/20 22:00 Ur Specific [place] 1.010 (1.000-1.030) 07/08/20 22:00 Urine Protein Negative (NEGATIVE) 07/08/20 22:00 Urine Glucose (UA) Negative (NEGATIVE) 07/08/20 22:00 Urine Ketones Negative (NEGATIVE) 07/08/20 22:00 Urine Occult Blood 1+ (NEGATIVE) 07/08/20 22:00 Urine Nitrite Negative (NEGATIVE) 07/08/20 22:00 Urine Bilirubin Negative (NEGATIVE) 07/08/20 22:00 Urine Urobilinogen Normal (NORMAL) 07/08/20 22:00 Ur Leukocyte Esterase Negative (NEGATIVE) 07/08/20 22:00 Urine RBC 0-2 /HPF (0-3) 07/08/20 22:00 Urine WBC None seen /HPF (0-5) 07/08/20 22:00 Ur Squamous Epith Cells Few /HPF (NEGATIVE) 07/08/20 22:00 Urine Bacteria 1+ /HPF (NEGATIVE) 07/08/20 22:00 Hyaline Casts Few /LPF (NEGATIVE) 07/08/20 22:00 Ur Culture Indicated? Yes/culture set up 07/08/20 22:00 SARS CoV-2 RNA Rapid ABDOUL Negative (NEGATIVE) 07/08/20 13:41 - Plan (1) Lethargy Status: Acute Plan: NORMAL SALINE AT 80 ML/HR, RESUME HOME MEDICATIONS, OBTAIN BRAIN MRI/MRA WITH CONTRAST (2) Generalized weakness Status: Acute (3) Altered mental status Status: Acute Qualifiers: Altered mental status type: transient alteration of awareness Qualified Code(s): R40.4 - Transient alteration of awareness (4) Incontinence Status: Acute Qualifiers: Incontinence type: urinary Urinary Incontinence type: urinary incontinence without sensory awareness Qualified Code(s): N39.42 - Incontinence without sensory awareness
[2020-07-09] MEDS ORDERED: POTASSIUM CHL 40 MEQ/NS 0.45% 500 ML IV PRN (11:57)
[2020-07-09] MEDS ORDERED: MICRO K EXTEN CAP 10 MEQ PO PRN (11:57)
[2020-07-09] MEDS ORDERED: POTASSIUM CHLORIDE LIQ 20 MEQ UDC PO PRN (11:57)
[2020-07-09] MEDS ORDERED: KLOR-CON PO PRN (11:57)
[2020-07-09] MEDS ORDERED: POTASSIUM CHL 60 MEQ/NS 0.45% 500 ML IV PRN (11:57)
--- NOTE | 2020-07-09 12:04 | MRI ---
HISTORYAMS, WEAKNESS; 15CC MULTIHANCESTUDYBRAIN W W/O CONCOMPARISONCT brain from 05/29/2020.TECHNIQUEMultiplanar multi-sequence MRI of the brain was obtained utilizing standard departmental protocol. Sagittal and axial T1 weighted images were obtained. Axial T2 and flair weighted images were performed as well. Axial diffusion weighted and ADC trace mapping was performed. Exam performed with and without contrast with 15 cc MultiHance given IV.FINDINGSDiffusion imaging: [Normal, no acute infarct.]Susceptibility weighted imaging: [No abnormal susceptibility artifact.]Brain volume: [Appropriate for age.]Ventricles and basal cisterns: [Normal for age.]Extra-axial spaces: [No extra-axial collection.]Cerebral parynchema: [No mass, hematoma, or mass effect.] Mild amount of T2 and Flair hyperintensities in the supratentorial subcortical and deep white matter.Pituitary and other sagittal midline structures: [Normal.]Visualized orbits: [Normal.]Paranasal sinuses and mastoid air cells: [Mild fluid likely a retention cyst in the posterior left ethmoid air cells. The mastoid air cells are clear.]Bones: [Intact.]Other: [No pathologic enhancement postcontrast.]IMPRESSION[No findings to explain the patient's symptoms. Mild chronic small vessel disease.]Electronically signed by: Azael Damian (July 09, 2020 12:02:10)
--- NOTE | 2020-07-09 12:07 | MRI ---
HISTORYAMS, WEAKNESSSTUDYMRA HEAD W/O CONCOMPARISONMRA for from 06/07/2020.[id number] MR angiography of the brain was performed. Rotating MIP images were generated and reviewed.FINDINGSLimitations: [None.]Intracranial internal carotid arteries: [Patent.]Anterior cerebral arteries: [Patent.]Middle cerebral arteries: [Patent.]Vertebrobasilar system:[Left dominant vertebral artery. No significant stenosis.]Posterior cerebral arteries: [Normal.]No vascular malformation. No aneurysm identified.IMPRESSION[][No significant stenosis.]Electronically signed by: Azael Damian (July 09, 2020 12:05:14)
[2020-07-09] MEDS: ELIQUIS PO SCH ×2 (13:08→22:08)
[2020-07-10] MEDS: NS 1000 ML 1,000 ML IV SCH ×2 (05:45→13:18)
[2020-07-10 06:28] LABS: BASOPHILS % (AUTO) 0.4 % (0.2-1.0); EOSINOPHILS % (AUTO) 0.2 % (0.9-2.9); HEMATOCRIT 32.2 % (36.0-47.0); HEMOGLOBIN 11.2 g/dL (12.0-16.0); LYMPHOCYTES # (AUTO) 2.1 X10^3/uL (1.3-2.9); LYMPHOCYTES % (AUTO) 19.5 % (21.0-51.0); MEAN CORPUSCULAR HEMOGLOBIN 35.3 pg (27.0-34.0); MEAN CORPUSCULAR HGB CONC 34.7 g/dL (33.0-35.0); MEAN CORPUSCULAR VOLUME 101.8 fL (80.0-100.0); MEAN PLATELET VOLUME 8.4 fL (7.4-11.0); MONOCYTES # (AUTO) 1.1 x10^3/uL (0.3-0.8); NEUTROPHILS # (AUTO) 7.4 x10^3/uL (2.2-4.8); NEUTROPHILS % (AUTO) 69.9 % (42.0-75.0); PLATELET COUNT 153 X10^3/uL (150.0-450.0); RED BLOOD COUNT 3.16 X10^6/uL (3.5-5.4); RED CELL DISTRIBUTION WIDTH 17.5 % (11.6-16.5); WHITE BLOOD COUNT 10.6 X10^3/uL (3.6-10.0)
[2020-07-10 06:54] LABS: ALANINE AMINOTRANSFERASE 31 Units/L (12-78); ALBUMIN 2.2 g/dL (3.4-5.0); ALKALINE PHOSPHATASE 87 Units/L (46-116); ASPARTATE AMINO TRANSFERASE 32 Units/L (15-37); BLOOD UREA NITROGEN 34 mg/dL (7-18); CALCIUM 8.5 mg/dL (8.5-10.1); CARBON DIOXIDE 25.6 mmol/L (21-32); CHLORIDE 106 mmol/L (98-107); COR CA(FOR HYPOALB) 9.9 mg/dL (8.5-10.1); CREATININE 1.04 mg/dL (0.55-1.02); SODIUM 140 mmol/L (136-145); TOTAL PROTEIN 4.5 g/dL (6.4-8.2); eGFR NON BLACK RACES 55 (>60)
[2020-07-10 07:08] LABS: PLATELET MORPHOLOGY COMMENT NORMAL (NORMAL)
[2020-07-10] MEDS: ALBUMIN HUMAN 25%- 100 ML 100 ML IV SCH (10:00)
[2020-07-10] MEDS ORDERED: PHARMACY CONSULT - TPN XX SCH (10:00)
[2020-07-10] MEDS: SYNTHROID 50 mcg TAB PO SCH (10:00)
[2020-07-10] MEDS: MAXZIDE 37.5/25 MG PO SCH (10:09)
[2020-07-10] MEDS: PEPCID TAB 20 MG PO SCH ×2 (10:09→21:35)
[2020-07-10] MEDS: FOLIC ACID TAB 1 MG PO SCH (10:09)
[2020-07-10] MEDS: ELIQUIS PO SCH ×2 (10:11→21:30)
[2020-07-10] MEDS: PROTONIX TAB 40 MG PO SCH ×2 (10:11→21:34)
[2020-07-10] MEDS: SOLU-Medrol 40 MG VIAL IVP SCH ×3 (10:12→21:34)
[2020-07-10] MEDS ORDERED: DEXTROSE 10% 1,000 ML IV PRN (11:21)
[2020-07-10 11:42] LABS: MAGNESIUM 1.7 mg/dL (1.7-2.9); PHOSPHORUS 2.5 mg/dL (2.6-4.7)
[2020-07-10] MEDS: CLINIMIX 5 %/20 % 1,000 ML with MVI INJ (ADULT) 10 ML, TRACE ELEMENTS INJ 10 ML, TPN EL... IV SCH ×5 (13:00)
[2020-07-10] MEDS: K-DUR TAB 20 MEQ PO PRN (13:25)
[2020-07-10] MEDS: IMURAN PO SCH (13:25)
[2020-07-10] MEDS: LEVAQUIN PREMIX IV 750 MG 750 MG/150 ML BAG IV SCH (16:00)
[2020-07-10] MEDS: HumuLIN R SUBCUT PRN ×2 (17:30→22:36)
[2020-07-10] MEDS: ZOFRAN INJ 4 MG VIAL IVP PRN (23:55)
[2020-07-10] MEDS ORDERED: ZOFRAN INJ 4 MG VIAL ONE (23:56)
[2020-07-11 05:07] LABS: BASOPHILS % (AUTO) 0.1 % (0.2-1.0); HEMATOCRIT 26.5 % (36.0-47.0); HEMOGLOBIN 9.1 g/dL (12.0-16.0); LYMPHOCYTES # (AUTO) 1.3 X10^3/uL (1.3-2.9); LYMPHOCYTES % (AUTO) 13.5 % (21.0-51.0); MEAN CORPUSCULAR HEMOGLOBIN 34.7 pg (27.0-34.0); MEAN CORPUSCULAR HGB CONC 34.4 g/dL (33.0-35.0); MEAN CORPUSCULAR VOLUME 100.9 fL (80.0-100.0); MEAN PLATELET VOLUME 8.7 fL (7.4-11.0); MONOCYTES # (AUTO) 0.4 x10^3/uL (0.3-0.8); MONOCYTES % (AUTO) 3.9 % (0.0-13.0); NEUTROPHILS # (AUTO) 8.2 x10^3/uL (2.2-4.8); NEUTROPHILS % (AUTO) 82.5 % (42.0-75.0); PLATELET COUNT 144 X10^3/uL (150.0-450.0); RED BLOOD COUNT 2.62 X10^6/uL (3.5-5.4); WHITE BLOOD COUNT 9.9 X10^3/uL (3.6-10.0)
[2020-07-11 05:10] LABS: ERYTHROCYTE SEDIMENTATION RATE 1 MM/HOUR (0-20)
[2020-07-11 05:17] LABS: PREALBUMIN 25.1 mg/dL (18-35.7)
[2020-07-11 05:24] LABS: ALANINE AMINOTRANSFERASE 28 Units/L (12-78); ALBUMIN 2.5 g/dL (3.4-5.0); ALKALINE PHOSPHATASE 66 Units/L (46-116); ASPARTATE AMINO TRANSFERASE 23 Units/L (15-37); BLOOD UREA NITROGEN 31 mg/dL (7-18); CALCIUM 8.5 mg/dL (8.5-10.1); CARBON DIOXIDE 25.2 mmol/L (21-32); CHLORIDE 106 mmol/L (98-107); COR CA(FOR HYPOALB) 9.7 mg/dL (8.5-10.1); SODIUM 140 mmol/L (136-145); TOTAL PROTEIN 4.5 g/dL (6.4-8.2); eGFR NON BLACK RACES 58 (>60)
[2020-07-11 06:02] LABS: PLATELET MORPHOLOGY COMMENT NORMAL (NORMAL)
[2020-07-11] MEDS: CLINIMIX 5 %/20 % 1,000 ML with MVI INJ (ADULT) 10 ML, TRACE ELEMENTS INJ 10 ML, TPN EL... IV SCH ×5 (06:12)
[2020-07-11] MEDS: SOLU-Medrol 40 MG VIAL IVP SCH ×3 (06:13→21:33)
[2020-07-11] MEDS: ZOFRAN INJ 4 MG VIAL IVP PRN ×2 (08:20→22:13)
[2020-07-11] MEDS: ALBUMIN HUMAN 25%- 100 ML 100 ML IV SCH (09:09)
[2020-07-11] MEDS: LEVAQUIN PREMIX IV 750 MG 750 MG/150 ML BAG IV SCH (09:09)
[2020-07-11] MEDS: FOLIC ACID TAB 1 MG PO SCH (09:10)
[2020-07-11] MEDS: PEPCID TAB 20 MG PO SCH ×2 (09:10→20:30)
[2020-07-11] MEDS: PROTONIX TAB 40 MG PO SCH ×2 (09:10→20:30)
[2020-07-11] MEDS: SYNTHROID 50 mcg TAB PO SCH (09:10)
[2020-07-11] MEDS: MAXZIDE 37.5/25 MG PO SCH (09:10)
[2020-07-11] MEDS: ELIQUIS PO SCH ×2 (09:10→21:33)
[2020-07-11] MEDS: IMURAN PO SCH (09:12)
--- NOTE | 2020-07-11 11:28 | PCM.PROG ---
Progress Note - Progress Note for Day of Date of Exam: 07/10/20 - Subjective Subjective: WAS ADMITTED DUE TO LETHARGY, GENERALIZED WEAKNESS, AMS, AND INCONTINENCE. TODAY, SHE CONTINUES WITH DROWSINESS AND WEAKNESS, BUT HER DAUGHTER DOES REPORT THAT SHE HAS BEEN SLIGHTLY MORE ENGAGING. SHE IS ORIENTED TO PERSON, BUT REMAINS CONFUSED TO WHERE SHE IS. STAFF REPORTS THAT SHE REQUIRES MODERATE ASSISTANCE FOR ADLs. ON EXAMINATION, HEART IS REGULAR IN RATE AND RHYTHM. BILATERAL LUNGS ARE NOTED WITH DIMINISHED LUNG SOUNDS THROUGHOUT. ABDOMEN IS ROUND, SOFT, AND NOTED TO HAVE MILD, DIFFUSE TENDERNESS TO PALPATION. NORMAL BOWEL SOUNDS IN ALL QUADRANTS. HER VITALS THIS MORNING ARE: 97.4-509-07-100%RA-109/61. LABS WERE OBTAINED. ABNORMAL LAB VALUES INCLUDE THE FOLLOWING: WBC 10.6, RBC 3.16, HGB 11.2, HCT 32.2, BUN 31, TOTAL BILI 1.50, CRP 8.80, TOTAL PROTEIN 4.5, ALBUMIN 2.5. A URINE CULTURE IS PENDING. PRELIMINARY CULTURE REVEALS GROWTH OF GRAM POSITIVE COCCI. SHE IS CURRENTLY RECEIVING NORMAL SALINE AT 20 ML/HR AND HER HOME MEDICATIONS WERE RESUMED. WE OBTAINED A BRAIN MRI WITH CONTRAST YESTERDAY. IT REVEALED: There is mild FLAIR bright signal in the basilar cisterns such as image 6 axial FLAIR which is most often artifactual but can also be seen with subarachnoid hemorrhage and hyper oxygenation therapy. Prior MRI from 06/07/2020 was reviewed. There is a similar distribution of mild scattered supratentorial white matter FLAIR signal. 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 A BRAIN MRA WAS OBTAINED AND REVEALED: NO SIGNIFICANT STENOSIS. SHE IS CURRENTLY RECEIVING PEPCID 20MG PO BID, PROTONIX 40MG PO BID, HUMULIN R SLIDING SCALE, ELIQUIS 5MG PO BID, FOLIC ACID 2MG PO DAILY, SYNTHROID 50MCG PO DAILY, ZOFRAN 4MG IV Q6H PRN, MAXZIDE 37.5/25MG PO DAILY, ULTRAM 50MG PO TID PRN, AND THE POTASSIUM AND MAGNESIUM PROTOCOLS. TODAY, WE WILL START IMURAN 100MG PO DAILY, SOLU-MEDROL 80MG IV Q8H, TPN, ALBUMIN 25% IV DAILY. WE WILL TRACK A CRP AND ESR LEVEL. OTHERWISE, WE WILL CONTINUE WITH CURRENT PLAN OF CARE TODAY. OTHERWISE, WE PLAN TO FOLLOW UP WITH AM LABS AND CONTINUE TO MONITOR. TIME SPENT ON CLINICAL ASSESSMENT, REVIEWING LABS AND IMAGING, DECISION MAKING, AND DOCUMEN TATION GREATER THAN 45 MINUTES. - Past Medical Family Social History Past Med/Fam/Surg Hx: No changes since H&P Allergies: Allergies peanut Allergy (Verified 12/08/18 09:27) - Review of Systems ROS: No change since H&P - Vital Signs and I&O's Vital Signs: Temperature 97.8 F Pulse Rate [Left Brachial] 82 Respiratory Rate 20 Blood Pressure [Right Arm] 112/71 Blood Pressure [Left Arm] 103/56 O2 Sat by Pulse Oximetry 97 Intake and Output: Intake & Output 07/08/20 07/09/20 07/10/20 07/11/20 11:59 11:59 11:59 11:59 Intake Total 1008 / 1008 1623 / 1623 2781 / 2781 Output Total 256 / 256 850 / 850 1300 / 1300 Balance 752 / 752 773 / 773 1481 / 1481 - Physical Exam Oriented: Person Eyes: Normal Ear: Normal Nose: Normal Throat: Normal Respiratory: Generalized, Diminished Cardiovascular: Normal : Normal Auscultation: Bowel Sounds: Normal Palpation: Normal Tenderness: Diffuse, Mild. negative: Rebound, Guarding, Rigidity Skin: Normal Musculoskeletal: Instability Psychiatric: Normal Mood Description: Calm Affect: Normal Speech Pattern: Clear, Appropriate - Laboratory and Diagnostics Result Diagrams: 07/11/20 04:10 07/11/20 04:10 Labs: 07/08/20 22:00 Urine,Clean Catch Urine Culture - Final Enterococcus Faecalis Laboratory WBC 9.9 X10^3/uL (3.6-10.0) 07/11/20 04:10 RBC 2.62 X10^6/uL (3.5-5.4) L 07/11/20 04:10 Hgb 9.1 g/dL (12.0-16.0) L D 07/11/20 04:10 Hct 26.5 % (36.0-47.0) L 07/11/20 04:10 MCV 100.9 fL (80.0-100.0) H 07/11/20 04:10 MCH 34.7 pg (27.0-34.0) H 07/11/20 04:10 MCHC 34.4 g/dL (33.0-35.0) 07/11/20 04:10 RDW 17.0 % (11.6-16.5) H 07/11/20 04:10 Plt Count 144 X10^3/uL (150.0-450.0) L 07/11/20 04:10 Plt Count Comment Decreased (ADEQUATE) A 07/11/20 04:10 MPV 8.7 fL (7.4-11.0) 07/11/20 04:10 Neut % (Auto) 82.5 % (42.0-75.0) H 07/11/20 04:10 Lymph % (Auto) 13.5 % (21.0-51.0) L 07/11/20 04:10 [place] % (Auto) 3.9 % (0.0-13.0) 07/11/20 04:10 Eos % (Auto) 0.0 % (0.9-2.9) L 07/11/20 04:10 Baso % (Auto) 0.1 % (0.2-1.0) L 07/11/20 04:10 Neut # (Auto) 8.2 x10^3/uL (2.2-4.8) H 07/11/20 04:10 Lymph # (Auto) 1.3 X10^3/uL (1.3-2.9) 07/11/20 04:10 [place] # (Auto) 0.4 x10^3/uL (0.3-0.8) 07/11/20 04:10 Eos # (Auto) 0.0 x10^3/uL (0.0-0.2) 07/11/20 04:10 Baso # (Auto) 0.0 X10^3/uL (0.0-0.1) 07/11/20 04:10 Absolute Nucleated RBC 0.1 /100WBC 07/11/20 04:10 Total Counted 100 07/11/20 04:10 Neutrophils % (Manual) 92 % (39-76) H 07/11/20 04:10 Band Neutrophils % 1 % (0-10) 07/08/20 15:14 Lymphocytes % (Manual) 8 % (13-43) L 07/11/20 04:10 Monocytes % (Manual) 9 % (4-9) 07/10/20 06:00 Eosinophils % (Manual) 1 % (0-6) 07/08/20 15:14 Plt Morphology Comment Normal (NORMAL) 07/11/20 04:10 RBC Morphology Normal (NORMAL) 07/11/20 04:10 Poikilocytosis Slight A 07/08/20 15:14 Anisocytosis 1+ A 07/08/20 15:14 ESR 1 MM/HOUR (0-20) 07/11/20 04:10 PT 15.4 SECONDS (11.8-14.3) 07/09/20 08:50 INR Target Range - 07/09/20 08:50 INR 1.28 (0.8-1.3) 07/09/20 08:50 APTT 23.5 SECONDS (22.9-36.5) 07/09/20 08:50 PTT Comment - 07/09/20 08:50 Sodium 140 mmol/L (136-145) 07/11/20 04:10 Corrected Sodium TNP 07/11/20 04:10 Potassium 3.6 mmol/L (3.5-5.1) 07/11/20 04:10 Chloride 106 mmol/L (98-107) 07/11/20 04:10 Carbon Dioxide 25.2 mmol/L (21-32) 07/11/20 04:10 BUN 31 mg/dL (7-18) H 07/11/20 04:10 Creatinine 1.00 mg/dL (0.55-1.02) 07/11/20 04:10 Est GFR (MDRD) Af Amer > 60 (>60) 07/11/20 04:10 Est GFR (MDRD) Non-Af 58 (>60) L 07/11/20 04:10 Glucose 99 mg/dL (65-99) 07/11/20 04:10 POC Glucose (mg/dL) 196 mg/dL (65-99) H 07/11/20 07:40 Calcium 8.5 mg/dL (8.5-10.1) 07/11/20 04:10 Corrected Calcium 9.7 mg/dL (8.5-10.1) 07/11/20 04:10 Phosphorus 2.5 mg/dL (2.6-4.7) L 07/10/20 06:00 Magnesium 1.7 mg/dL (1.7-2.9) 07/10/20 06:00 Total Bilirubin 1.50 mg/dL (0.2-1.0) H 07/11/20 04:10 AST 23 Units/L (15-37) 07/11/20 04:10 ALT 28 Units/L (12-78) 07/11/20 04:10 Alkaline Phosphatase 66 Units/L (46-116) 07/11/20 04:10 Ammonia 10 umol/L (11-32) L 07/09/20 02:45 Creatine Kinase 19 Units/L (26-192) L 07/09/20 02:45 CK-MB (CK-2) 1.0 ng/mL (0-4.0) 07/09/20 02:45 CK/CKMB % Calc 5.3 % (<4) 07/09/20 02:45 Troponin I 0.06 ng/mL (0-1.5) 07/09/20 02:45 C-Reactive Protein 8.80 mg/L (0-3.0) H 07/11/20 04:10 Total Protein 4.5 g/dL (6.4-8.2) L 07/11/20 04:10 Albumin 2.5 g/dL (3.4-5.0) L 07/11/20 04:10 Globulin 2.0 g/dL (2.5-4.5) L 07/11/20 04:10 Albumin/Globulin Ratio 1.3 Ratio (1.1-2.1) 07/11/20 04:10 Prealbumin 25.1 mg/dL (18-35.7) 07/11/20 04:10 Triglycerides 79 mg/dL (0-150) 07/10/20 06:00 Specimen Type Catherized urine 07/08/20 22:00 Urine Color Straw (YELLOW) 07/08/20 22:00 Urine Appearance Clear (CLEAR) 07/08/20 22:00 Urine pH 6.5 (5.0 - 8.0) 07/08/20 22:00 Ur Specific [place] 1.010 (1.000-1.030) 07/08/20 22:00 Urine Protein Negative (NEGATIVE) 07/08/20 22:00 Urine Glucose (UA) Negative (NEGATIVE) 07/08/20 22:00 Urine Ketones Negative (NEGATIVE) 07/08/20 22:00 Urine Occult Blood 1+ (NEGATIVE) 07/08/20 22:00 Urine Nitrite Negative (NEGATIVE) 07/08/20 22:00 Urine Bilirubin Negative (NEGATIVE) 07/08/20 22:00 Urine Urobilinogen Normal (NORMAL) 07/08/20 22:00 Ur Leukocyte Esterase Negative (NEGATIVE) 07/08/20 22:00 Urine RBC 0-2 /HPF (0-3) 07/08/20 22:00 Urine WBC None seen /HPF (0-5) 07/08/20 22:00 Ur Squamous Epith Cells Few /HPF (NEGATIVE) 07/08/20 22:00 Urine Bacteria 1+ /HPF (NEGATIVE) 07/08/20 22:00 Hyaline Casts Few /LPF (NEGATIVE) 07/08/20 22:00 Ur Culture Indicated? Yes/culture set up 07/08/20 22:00 SARS CoV-2 RNA Rapid ABDOUL Negative (NEGATIVE) 07/08/20 13:41 - Plan (1) MASTER PILOT vasculitis Status: Acute Plan: NORMAL SALINE AT 20 ML/HR, TPN, ALBUMIN 25% IV DAILY, IMURAN 100MG PO DAILY, SOLU-MEDROL 80MG IV Q8H, PEPCID 20MG PO BID, PROTONIX 40MG PO BID, HUMULIN R SLIDING SCALE, ELIQUIS 5MG PO BID, FOLIC ACID 2MG PO DAILY, SYNTHROID 50MCG PO DAILY, ZOFRAN 4MG IV Q6H PRN, MAXZIDE 37.5/25MG PO DAILY, ULTRAM 50MG PO TID PRN, AND THE POTASSIUM AND MAGNESIUM PROTOCOLS. (2) Encephalopathy Status: Acute (3) Lethargy Status: Acute (4) Generalized weakness Status: Acute (5) Altered mental status Status: Acute Qualifiers: Altered mental status type: transient alteration of awareness Qualified Code(s): R40.4 - Transient alteration of awareness (6) Incontinence Status: Acute Qualifiers: Incontinence type: urinary Urinary Incontinence type: urinary incontinence without sensory awareness Qualified Code(s): N39.42 - Incontinence without sensory awareness
--- NOTE | 2020-07-11 11:50 | PCM.PROG ---
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 TODAY, SHE CONTINUES WITH WEAKNESS, BUT APPEARS TO BE MORE ALERT TODAY. SHE IS ORIENTED TO PERSON, BUT REMAINS CONFUSED TO PLACE AND TIME. STAFF REPORTS THAT SHE CONTINUES TO REQUIRE MODERATE ASSISTANCE FOR ADLs. ON EXAMINATION, HEART IS REGULAR IN RATE AND RHYTHM. BILATERAL LUNGS ARE NOTED WITH DIMINISHED LUNG SOUNDS THROUGHOUT. ABDOMEN IS ROUND, SOFT, AND NOTED TO HAVE MILD, DIFFUSE TENDERNESS TO PALPATION. NORMAL BOWEL SOUNDS IN ALL QUADRANTS. HER VITALS THIS MORNING ARE: 97. 8-82-20-97%-103/56. LABS WERE OBTAINED. ABNORMAL LAB VALUES INCLUDE THE FOLLOWING: RBC 2.62, HGB 9.1, HCT 26.5, PLT COUNT 144, BUN 31, TOTAL BILI 1.50, CRP 8.80, TOTAL PROTEIN 4.5, ALBUMIN 2.5. URINE CULTURE REVEALS GROWTH OF ENTEROCOCCUS FAECALIS. WE STARTED HER ON LEVAQUIN YESTERDAY. IT IS SENSITIVE TO THE LEVAQUIN. SHE IS CURRENTLY RECEIVING NORMAL SALINE AT 20 ML/HR, TPN, ALBUMIN 25% IV DAILY, LEVAQUIN 750MG IV DAILY, SOLU-MEDROL 80MG IV TID, IMURAN 100MG PO DAILY, PEPCID 20MG PO BID, PROTONIX 40MG PO BID, HUMULIN R SLIDING SCALE, ELIQUIS 5MG PO BID, FOLIC ACID 2MG PO DAILY, SYNTHROID 50MCG PO DAILY, ZOFRAN 4MG IV Q6H PRN, MAXZIDE 37.5/25MG PO DAILY, ULTRAM 50MG PO TID PRN, AND THE POTA SSIUM AND MAGNESIUM PROTOCOLS. WE WILL TRACK A CRP AND ESR LEVEL. OTHERWISE, WE WILL CONTINUE WITH CURRENT PLAN OF CARE TODAY. WE PLAN TO SEND PATIENT TO THE [facility] FOR PHYSICAL THERAPY, REHAB, AND IV NUTRITION WHEN SHE IS STABLE FOR DISCHARGE. OTHERWISE, WE PLAN TO FOLLOW UP WITH AM LABS AND CONTINUE TO MONITOR. TIME SPENT ON CLINICAL ASSESSMENT, REVIEWING LABS AND IMAGING, DECISION MAKING, AND DOCUMENTATION GREATER THAN 45 MINUTES. - Past Medical Family Social History Past Med/Fam/Surg Hx: No changes since H&P Allergies: Allergies peanut Allergy (Verified 12/08/18 09:27) - Review of Systems ROS: No change since H&P - Vital Signs and I&O's Vital Signs: Temperature 97.8 F Pulse Rate [Left Brachial] 82 Respiratory Rate 20 Blood Pressure [Right Arm] 112/71 Blood Pressure [Left Arm] 103/56 O2 Sat by Pulse Oximetry 97 Intake and Output: Intake & Output 07/08/20 07/09/20 07/10/20 07/11/20 11:59 11:59 11:59 11:59 Intake Total 1008 / 1008 1623 / 1623 2781 / 2781 Output Total 256 / 256 850 / 850 1300 / 1300 Balance 752 / 752 773 / 773 1481 / 1481 - Physical Exam Oriented: Person Eyes: Normal Ear: Normal Nose: Normal Throat: Normal Respiratory: Generalized, Diminished Cardiovascular: Normal : Normal Auscultation: Bowel Sounds: Normal Tenderness: Diffuse, Mild. negative: Rebound, Guarding, Rigidity Skin: Normal Musculoskeletal: Instability Psychiatric: Normal Mood Description: Calm Affect: Normal Speech Pattern: Clear, Appropriate - Laboratory and Diagnostics Result Diagrams: 07/11/20 04:10 07/11/20 04:10 Labs: 07/08/20 22:00 Urine,Clean Catch Urine Culture - Final Enterococcus Faecalis Laboratory WBC 9.9 X10^3/uL (3.6-10.0) 07/11/20 04:10 RBC 2.62 X10^6/uL (3.5-5.4) L 07/11/20 04:10 Hgb 9.1 g/dL (12.0-16.0) L D 07/11/20 04:10 Hct 26.5 % (36.0-47.0) L 07/11/20 04:10 MCV 100.9 fL (80.0-100.0) H 07/11/20 04:10 MCH 34.7 pg (27.0-34.0) H 07/11/20 04:10 MCHC 34.4 g/dL (33.0-35.0) 07/11/20 04:10 RDW 17.0 % (11.6-16.5) H 07/11/20 04:10 Plt Count 144 X10^3/uL (150.0-450.0) L 07/11/20 04:10 Plt Count Comment Decreased (ADEQUATE) A 07/11/20 04:10 MPV 8.7 fL (7.4-11.0) 07/11/20 04:10 Neut % (Auto) 82.5 % (42.0-75.0) H 07/11/20 04:10 Lymph % (Auto) 13.5 % (21.0-51.0) L 07/11/20 04:10 [place] % (Auto) 3.9 % (0.0-13.0) 07/11/20 04:10 Eos % (Auto) 0.0 % (0.9-2.9) L 07/11/20 04:10 Baso % (Auto) 0.1 % (0.2-1.0) L 07/11/20 04:10 Neut # (Auto) 8.2 x10^3/uL (2.2-4.8) H 07/11/20 04:10 Lymph # (Auto) 1.3 X10^3/uL (1.3-2.9) 07/11/20 04:10 [place] # (Auto) 0.4 x10^3/uL (0.3-0.8) 07/11/20 04:10 Eos # (Auto) 0.0 x10^3/uL (0.0-0.2) 07/11/20 04:10 Baso # (Auto) 0.0 X10^3/uL (0.0-0.1) 07/11/20 04:10 Absolute Nucleated RBC 0.1 /100WBC 07/11/20 04:10 Total Counted 100 07/11/20 04:10 Neutrophils % (Manual) 92 % (39-76) H 07/11/20 04:10 Band Neutrophils % 1 % (0-10) 07/08/20 15:14 Lymphocytes % (Manual) 8 % (13-43) L 07/11/20 04:10 Monocytes % (Manual) 9 % (4-9) 07/10/20 06:00 Eosinophils % (Manual) 1 % (0-6) 07/08/20 15:14 Plt Morphology Comment Normal (NORMAL) 07/11/20 04:10 RBC Morphology Normal (NORMAL) 07/11/20 04:10 Poikilocytosis Slight A 07/08/20 15:14 Anisocytosis 1+ A 07/08/20 15:14 ESR 1 MM/HOUR (0-20) 07/11/20 04:10 PT 15.4 SECONDS (11.8-14.3) 07/09/20 08:50 INR Target Range - 07/09/20 08:50 INR 1.28 (0.8-1.3) 07/09/20 08:50 APTT 23.5 SECONDS (22.9-36.5) 07/09/20 08:50 PTT Comment - 07/09/20 08:50 Sodium 140 mmol/L (136-145) 07/11/20 04:10 Corrected Sodium TNP 07/11/20 04:10 Potassium 3.6 mmol/L (3.5-5.1) 07/11/20 04:10 Chloride 106 mmol/L (98-107) 07/11/20 04:10 Carbon Dioxide 25.2 mmol/L (21-32) 07/11/20 04:10 BUN 31 mg/dL (7-18) H 07/11/20 04:10 Creatinine 1.00 mg/dL (0.55-1.02) 07/11/20 04:10 Est GFR (MDRD) Af Amer > 60 (>60) 07/11/20 04:10 Est GFR (MDRD) Non-Af 58 (>60) L 07/11/20 04:10 Glucose 99 mg/dL (65-99) 07/11/20 04:10 POC Glucose (mg/dL) 153 mg/dL (65-99) H 07/11/20 11:25 Calcium 8.5 mg/dL (8.5-10.1) 07/11/20 04:10 Corrected Calcium 9.7 mg/dL (8.5-10.1) 07/11/20 04:10 Phosphorus 2.5 mg/dL (2.6-4.7) L 07/10/20 06:00 Magnesium 1.7 mg/dL (1.7-2.9) 07/10/20 06:00 Total Bilirubin 1.50 mg/dL (0.2-1.0) H 07/11/20 04:10 AST 23 Units/L (15-37) 07/11/20 04:10 ALT 28 Units/L (12-78) 07/11/20 04:10 Alkaline Phosphatase 66 Units/L (46-116) 07/11/20 04:10 Ammonia 10 umol/L (11-32) L 07/09/20 02:45 Creatine Kinase 19 Units/L (26-192) L 07/09/20 02:45 CK-MB (CK-2) 1.0 ng/mL (0-4.0) 07/09/20 02:45 CK/CKMB % Calc 5.3 % (<4) 07/09/20 02:45 Troponin I 0.06 ng/mL (0-1.5) 07/09/20 02:45 C-Reactive Protein 8.80 mg/L (0-3.0) H 07/11/20 04:10 Total Protein 4.5 g/dL (6.4-8.2) L 07/11/20 04:10 Albumin 2.5 g/dL (3.4-5.0) L 07/11/20 04:10 Globulin 2.0 g/dL (2.5-4.5) L 07/11/20 04:10 Albumin/Globulin Ratio 1.3 Ratio (1.1-2.1) 07/11/20 04:10 Prealbumin 25.1 mg/dL (18-35.7) 07/11/20 04:10 Triglycerides 79 mg/dL (0-150) 07/10/20 06:00 Specimen Type Catherized urine 07/08/20 22:00 Urine Color Straw (YELLOW) 07/08/20 22:00 Urine Appearance Clear (CLEAR) 07/08/20 22:00 Urine pH 6.5 (5.0 - 8.0) 07/08/20 22:00 Ur Specific [place] 1.010 (1.000-1.030) 07/08/20 22:00 Urine Protein Negative (NEGATIVE) 07/08/20 22:00 Urine Glucose (UA) Negative (NEGATIVE) 07/08/20 22:00 Urine Ketones Negative (NEGATIVE) 07/08/20 22:00 Urine Occult Blood 1+ (NEGATIVE) 07/08/20 22:00 Urine Nitrite Negative (NEGATIVE) 07/08/20 22:00 Urine Bilirubin Negative (NEGATIVE) 07/08/20 22:00 Urine Urobilinogen Normal (NORMAL) 07/08/20 22:00 Ur Leukocyte Esterase Negative (NEGATIVE) 07/08/20 22:00 Urine RBC 0-2 /HPF (0-3) 07/08/20 22:00 Urine WBC None seen /HPF (0-5) 07/08/20 22:00 Ur Squamous Epith Cells Few /HPF (NEGATIVE) 07/08/20 22:00 Urine Bacteria 1+ /HPF (NEGATIVE) 07/08/20 22:00 Hyaline Casts Few /LPF (NEGATIVE) 07/08/20 22:00 Ur Culture Indicated? Yes/culture set up 07/08/20 22:00 SARS CoV-2 RNA Rapid ABDOUL Negative (NEGATIVE) 07/08/20 13:41 - Plan (1) LICENSED VOCATIONAL NURSE vasculitis Status: Acute Plan: NORMAL SALINE AT 20 ML/HR, TPN, ALBUMIN 25% IV DAILY, LEVAQUIN 750MG IV DAILY, IMURAN 100MG PO DAILY, SOLU-MEDROL 80MG IV Q8H, PEPCID 20MG PO BID, RADHA NIX 40MG PO BID, HUMULIN R SLIDING SCALE, ELIQUIS 5MG PO BID, FOLIC ACID 2MG PO DAILY, SYNTHROID 50MCG PO DAILY, ZOFRAN 4MG IV Q6H PRN, MAXZIDE 37.5/25MG PO DAILY, ULTRAM 50MG PO TID PRN, AND THE POTASSIUM AND MAGNESIUM PROTOCOLS. (2) Encephalopathy Status: Acute (3) Urinary tract infection Status: Acute Qualifiers: Urinary tract infection type: acute cystitis Hematuria presence: without hematuria Qualified Code(s): N30.00 - Acute cystitis without hematuria (4) Lethargy Status: Acute (5) Generalized weakness Status: Acute (6) Altered mental status Status: Acute Qualifiers: Altered mental status type: transient alteration of awareness Qualified Code(s): R40.4 - Transient alteration of awareness (7) Incontinence Status: Acute Qualifiers: Incontinence type: urinary Urinary Incontinence type: urinary incontinence without sensory awareness Qualified Code(s): N39.42 - Incontinence without sensory awareness
[2020-07-11] MEDS: ULTRAM PO PRN (20:31)
[2020-07-12 05:54] LABS: BASOPHILS % (AUTO) 0.1 % (0.2-1.0); HEMATOCRIT 22.7 % (36.0-47.0); HEMOGLOBIN 7.7 g/dL (12.0-16.0); LYMPHOCYTES # (AUTO) 1.2 X10^3/uL (1.3-2.9); LYMPHOCYTES % (AUTO) 10.3 % (21.0-51.0); MEAN CORPUSCULAR HEMOGLOBIN 34.3 pg (27.0-34.0); MEAN CORPUSCULAR HGB CONC 34.1 g/dL (33.0-35.0); MEAN CORPUSCULAR VOLUME 100.6 fL (80.0-100.0); MEAN PLATELET VOLUME 8.3 fL (7.4-11.0); MONOCYTES # (AUTO) 0.5 x10^3/uL (0.3-0.8); MONOCYTES % (AUTO) 4.5 % (0.0-13.0); NEUTROPHILS # (AUTO) 10.2 x10^3/uL (2.2-4.8); NEUTROPHILS % (AUTO) 85.1 % (42.0-75.0); PLATELET COUNT 141 X10^3/uL (150.0-450.0); RED BLOOD COUNT 2.25 X10^6/uL (3.5-5.4); RED CELL DISTRIBUTION WIDTH 16.8 % (11.6-16.5)
[2020-07-12 05:58] LABS: ERYTHROCYTE SEDIMENTATION RATE 1 MM/HOUR (0-20)
[2020-07-12 06:06] LABS: ALANINE AMINOTRANSFERASE 23 Units/L (12-78); ALBUMIN 2.5 g/dL (3.4-5.0); ALKALINE PHOSPHATASE 55 Units/L (46-116); ASPARTATE AMINO TRANSFERASE 19 Units/L (15-37); BLOOD UREA NITROGEN 30 mg/dL (7-18); CALCIUM 8.9 mg/dL (8.5-10.1); CHLORIDE 104 mmol/L (98-107); COR CA(FOR HYPOALB) 10.1 mg/dL (8.5-10.1); COR NA(FOR HYPERGLY) 140 mmol/L (136-145); CREATININE 0.91 mg/dL (0.55-1.02); SODIUM 139 mmol/L (136-145); TOTAL PROTEIN 4.3 g/dL (6.4-8.2); eGFR NON BLACK RACES > 60 (>60)
[2020-07-12] MEDS: SOLU-Medrol 40 MG VIAL IVP SCH ×3 (06:30→22:47)
[2020-07-12] MEDS: CLINIMIX 5 %/20 % 1,000 ML with MVI INJ (ADULT) 10 ML, TRACE ELEMENTS INJ 10 ML, TPN EL... IV SCH ×10 (06:30→11:15)
[2020-07-12] MEDS: LEVAQUIN PREMIX IV 750 MG 750 MG/150 ML BAG IV SCH (09:14)
[2020-07-12] MEDS: PROTONIX TAB 40 MG PO SCH ×2 (09:15→21:30)
[2020-07-12] MEDS: MAXZIDE 37.5/25 MG PO SCH (09:16)
[2020-07-12] MEDS: ELIQUIS PO SCH ×2 (09:17→21:30)
[2020-07-12] MEDS: FOLIC ACID TAB 1 MG PO SCH (09:18)
[2020-07-12] MEDS: SYNTHROID 50 mcg TAB PO SCH (09:18)
[2020-07-12] MEDS: PEPCID TAB 20 MG PO SCH ×2 (09:18→21:30)
[2020-07-12 10:14] LABS: RETICULOCYTE % 2.41 % (0.8-2.2)
[2020-07-12 10:53] LABS: IRON 81 ug/dL (50-175)
[2020-07-12] MEDS: IMURAN PO SCH (11:00)
[2020-07-12] MEDS: ALBUMIN HUMAN 25%- 100 ML 100 ML IV SCH (11:14)
--- NOTE | 2020-07-12 11:21 | PCM.PROG ---
Progress Note - Progress Note for Day of Date of Exam: 07/12/20 - Subjective Subjective: IS BEING TREATED FOR ELECTRONIC TESTER VASCULITIS, ENCEPHALOPATHY, UTI, LETHARGY, AND GENERALIZED WEAKNESS. TODAY, SHE CONTINUES WITH WEAKNESS, BUT APPEARS TO BE MORE ALERT AND IS MORE ENGAGING TODAY. SHE IS ORIENTED TO PERSON, BUT REMAINS CONFUSED TO PLACE AND TIME. STAFF REPORTS THAT SHE CONTINUES TO REQUIRE MODERATE ASSISTANCE FOR ADLs. HER DAUGHTER IN LAW IS FEEDING HER BREAKFAST WHILE WE ARE IN THE ROOM. ON EXAMINATION, HEART IS REGULAR IN RATE AND RHYTHM. BILATERAL LUNGS ARE NOTED WITH DIMINISHED LUNG SOUNDS THROUGHOUT. ABDOMEN IS ROUND, SOFT, AND NOTED TO HAVE MILD, DIFFUSE TENDERNESS TO PALPATION. NORMAL BOWEL SOUNDS IN ALL QUADRANTS. HER VITALS THIS MORNING ARE: 98.7-76-20- 97%-114/58. LABS WERE OBTAINED. ABNORMAL LAB VALUES INCLUDE THE FOLLOWING: WBC 12.0, RBC 2.25, HGB 7.7, HCT 22.7, PLT COUNT 141, RETIC 2.41, POTASSIUM 3.0, BUN 30, GLUCOSE 152, TOTAL PROTEIN 4.3, ALBUMIN 2.5. URINE CULTURE REVEALS GROWTH OF ENTEROCOCCUS FAECALIS.. SHE IS CURRENTLY RECEIVING NORMAL SALINE AT 20 ML/HR, TPN, ALBUMIN 25% IV DAILY, LEVAQUIN 750MG IV DAILY, SOLU-MEDROL 80MG IV TID, IMURAN 100MG PO DAILY, PEPCID 20MG PO BID, PROTONIX 40MG PO BID, HUMULIN R SLIDING SCALE, ELIQUIS 5MG PO BID, FOLIC ACID 2MG PO DAILY, SYNTHROID 50MCG PO DAILY, ZOFRAN 4MG IV Q6H PRN, MAXZIDE 37.5/25MG PO DAILY, ULTRAM 50MG PO TID PRN, AND THE POTASSIUM AND MAGNESIUM PROTOCOLS. DUE TO DROP IN HEMOGLOBIN, WE WILL TRANSFUSE TWO UNITS OF PRBC TODAY. OTHERWISE, WE WILL CONTINUE WITH CURRENT PLAN OF CARE. WE PLAN TO SEND PATIENT TO THE [facility] FOR PHYSICAL THERAPY, REHAB, AND IV NUTRITION WHEN SHE IS STABLE FOR DISCHARGE. OTHERWISE, WE PLAN TO FOLLOW UP WITH AM LABS AND CONTINUE TO MONITOR. TIME SPENT ON CLINICAL ASSESSMENT, REVIEWING LABS AND IMAGING, DECISION MAKING, AND DOCUMENTATION GREATER THAN 45 MINUTES. - Past Medical Family Social History Past Med/Fam/Surg Hx: No changes since H&P Allergies: Allergies peanut Allergy (Verified 12/08/18 09:27) - Review of Systems ROS: No change since H&P - Vital Signs and I&O's Vital Signs: Temperature 98.7 F Pulse Rate [Left Brachial] 76 Respiratory Rate 20 Blood Pressure [Right Arm] 102/59 Blood Pressure [Left Arm] 114/58 O2 Sat by Pulse Oximetry 97 Intake and Output: Intake & Output 07/09/20 07/10/20 07/11/20 07/12/20 11:59 11:59 11:59 11:59 Intake Total 1008 / 1008 1623 / 1623 2781 / 2781 2011 Output Total 256 / 256 850 / 850 1300 / 1300 1600 / 1600 Balance 752 / 752 773 / 773 1481 / 1481 412 / 412 - Physical Exam Oriented: Person Eyes: Normal Ear: Normal Nose: Normal Throat: Normal Respiratory: Generalized, Diminished Cardiovascular: Normal : Normal Auscultation: Bowel Sounds: Normal Palpation: Normal Tenderness: Diffuse, Mild. negative: Rebound, Guarding, Rigidity Skin: Normal Musculoskeletal: Instability Psychiatric: Normal Mood Description: Calm Affect: Normal Speech Pattern: Delayed - Laboratory and Diagnostics Result Diagrams: 07/12/20 05:25 07/12/20 05:25 Labs: 07/08/20 22:00 Urine,Clean Catch Urine Culture - Final Enterococcus Faecalis Laboratory WBC 12.0 X10^3/uL (3.6-10.0) H 07/12/20 05:25 RBC 2.25 X10^6/uL (3.5-5.4) L 07/12/20 05:25 Hgb 7.7 g/dL (12.0-16.0) L 07/12/20 05:25 Hct 22.7 % (36.0-47.0) L 07/12/20 05:25 MCV 100.6 fL (80.0-100.0) H 07/12/20 05:25 MCH 34.3 pg (27.0-34.0) H 07/12/20 05:25 MCHC 34.1 g/dL (33.0-35.0) 07/12/20 05:25 RDW 16.8 % (11.6-16.5) H 07/12/20 05:25 Plt Count 141 X10^3/uL (150.0-450.0) L 07/12/20 05:25 Plt Count Comment Decreased (ADEQUATE) A 07/11/20 04:10 MPV 8.3 fL (7.4-11.0) 07/12/20 05:25 Neut % (Auto) 85.1 % (42.0-75.0) H 07/12/20 05:25 Lymph % (Auto) 10.3 % (21.0-51.0) L 07/12/20 05:25 [place] % (Auto) 4.5 % (0.0-13.0) 07/12/20 05:25 Eos % (Auto) 0.0 % (0.9-2.9) L 07/12/20 05:25 Baso % (Auto) 0.1 % (0.2-1.0) L 07/12/20 05:25 Neut # (Auto) 10.2 x10^3/uL (2.2-4.8) H 07/12/20 05:25 Lymph # (Auto) 1.2 X10^3/uL (1.3-2.9) L 07/12/20 05:25 [place] # (Auto) 0.5 x10^3/uL (0.3-0.8) 07/12/20 05:25 Eos # (Auto) 0.0 x10^3/uL (0.0-0.2) 07/12/20 05:25 Baso # (Auto) 0.0 X10^3/uL (0.0-0.1) 07/12/20 05:25 Absolute Nucleated RBC 0.0 /100WBC 07/12/20 05:25 Total Counted 100 07/11/20 04:10 Neutrophils % (Manual) 92 % (39-76) H 07/11/20 04:10 Band Neutrophils % 1 % (0-10) 07/08/20 15:14 Lymphocytes % (Manual) 8 % (13-43) L 07/11/20 04:10 Monocytes % (Manual) 9 % (4-9) 07/10/20 06:00 Eosinophils % (Manual) 1 % (0-6) 07/08/20 15:14 Plt Morphology Comment Normal (NORMAL) 07/11/20 04:10 RBC Morphology Normal (NORMAL) 07/11/20 04:10 Poikilocytosis Slight A 07/08/20 15:14 Anisocytosis 1+ A 07/08/20 15:14 ESR 1 MM/HOUR (0-20) 07/12/20 05:25 Absolute Retic 0.0598 10^6/uL 07/12/20 09:56 Percent Retic 2.41 % (0.8-2.2) H 07/12/20 09:56 PT 15.4 SECONDS (11.8-14.3) 07/09/20 08:50 INR Target Range - 07/09/20 08:50 INR 1.28 (0.8-1.3) 07/09/20 08:50 APTT 23.5 SECONDS (22.9-36.5) 07/09/20 08:50 PTT Comment - 07/09/20 08:50 Sodium 139 mmol/L (136-145) 07/12/20 05:25 Corrected Sodium 140 mmol/L (136-145) 07/12/20 05:25 Potassium 3.0 mmol/L (3.5-5.1) L* 07/12/20 05:25 Chloride 104 mmol/L (98-107) 07/12/20 05:25 Carbon Dioxide 27.0 mmol/L (21-32) 07/12/20 05:25 BUN 30 mg/dL (7-18) H 07/12/20 05:25 Creatinine 0.91 mg/dL (0.55-1.02) 07/12/20 05:25 Est GFR (MDRD) Af Amer > 60 (>60) 07/12/20 05:25 Est GFR (MDRD) Non-Af > 60 (>60) 07/12/20 05:25 Glucose 152 mg/dL (65-99) H 07/12/20 05:25 POC Glucose (mg/dL) 146 mg/dL (65-99) H 07/12/20 05:45 Calcium 8.9 mg/dL (8.5-10.1) 07/12/20 05:25 Corrected Calcium 10.1 mg/dL (8.5-10.1) 07/12/20 05:25 Phosphorus 2.5 mg/dL (2.6-4.7) L 07/10/20 06:00 Magnesium 1.7 mg/dL (1.7-2.9) 07/12/20 05:25 Iron 81 ug/dL (50-175) 07/12/20 09:56 Transferrin 124 mg/dL (202-364) L 07/12/20 09:56 Ferritin 291 ng/mL (8-252) H 07/12/20 09:56 Total Bilirubin 1.00 mg/dL (0.2-1.0) 07/12/20 05:25 AST 19 Units/L (15-37) 07/12/20 05:25 ALT 23 Units/L (12-78) 07/12/20 05:25 Alkaline Phosphatase 55 Units/L (46-116) 07/12/20 05:25 Ammonia 10 umol/L (11-32) L 07/09/20 02:45 Creatine Kinase 19 Units/L (26-192) L 07/09/20 02:45 CK-MB (CK-2) 1.0 ng/mL (0-4.0) 07/09/20 02:45 CK/CKMB % Calc 5.3 % (<4) 07/09/20 02:45 Troponin I 0.06 ng/mL (0-1.5) 07/09/20 02:45 C-Reactive Protein 2.30 mg/L (0-3.0) 07/12/20 05:25 Total Protein 4.3 g/dL (6.4-8.2) L 07/12/20 05:25 Albumin 2.5 g/dL (3.4-5.0) L 07/12/20 05:25 Globulin 1.8 g/dL (2.5-4.5) L 07/12/20 05:25 Albumin/Globulin Ratio 1.4 Ratio (1.1-2.1) 07/12/20 05:25 Prealbumin 25.1 mg/dL (18-35.7) 07/11/20 04:10 Triglycerides 79 mg/dL (0-150) 07/10/20 06:00 Vitamin B12 496 pg/mL (193-986) 07/12/20 09:56 Folate > 20.0 ng/mL (>8.6) 07/12/20 09:56 Specimen Type Catherized urine 07/08/20 22:00 Urine Color Straw (YELLOW) 07/08/20 22:00 Urine Appearance Clear (CLEAR) 07/08/20 22:00 Urine pH 6.5 (5.0 - 8.0) 07/08/20 22:00 Ur Specific [place] 1.010 (1.000-1.030) 07/08/20 22:00 Urine Protein Negative (NEGATIVE) 07/08/20 22:00 Urine Glucose (UA) Negative (NEGATIVE) 07/08/20 22:00 Urine Ketones Negative (NEGATIVE) 07/08/20 22:00 Urine Occult Blood 1+ (NEGATIVE) 07/08/20 22:00 Urine Nitrite Negative (NEGATIVE) 07/08/20 22:00 Urine Bilirubin Negative (NEGATIVE) 07/08/20 22:00 Urine Urobilinogen Normal (NORMAL) 07/08/20 22:00 Ur Leukocyte Esterase Negative (NEGATIVE) 07/08/20 22:00 Urine RBC 0-2 /HPF (0-3) 07/08/20 22:00 Urine WBC None seen /HPF (0-5) 07/08/20 22:00 Ur Squamous Epith Cells Few /HPF (NEGATIVE) 07/08/20 22:00 Urine Bacteria 1+ /HPF (NEGATIVE) 07/08/20 22:00 Hyaline Casts Few /LPF (NEGATIVE) 07/08/20 22:00 Ur Culture Indicated? Yes/culture set up 07/08/20 22:00 SARS CoV-2 RNA Rapid ABDOUL Negative (NEGATIVE) 07/08/20 13:41 - Plan (1) ELECTRONIC TESTER vasculitis Status: Acute Plan: NORMAL SALINE AT 20 ML/HR, TPN, ALBUMIN 25% IV DAILY, LEVAQUIN 750MG IV DAILY, IMURAN 100MG PO DAILY, SOLU-MEDROL 80MG IV Q8H, PEPCID 20MG PO BID, PROTONIX 40MG PO BID, HUMULIN R SLIDING SCALE, ELIQUIS 5MG PO BID, FOLIC ACID 2MG PO DAILY, SYNTHROID 50MCG PO DAILY, ZOFRAN 4MG IV Q6H PRN, MAXZIDE 37.5/25MG PO DAILY, ULTRAM 50MG PO TID PRN, AND THE POTASSIUM AND MAGNESIUM PROTOCOLS. (2) Encephalopathy Status: Acute (3) Urinary tract infection Status: Acute Qualifiers: Urinary tract infection type: acute cystitis Hematuria presence: without hematuria Qualified Code(s): N30.00 - Acute cystitis without hematuria (4) Lethargy Status: Acute (5) Generalized weakness Status: Acute (6) Altered mental status Status: Acute Qualifiers: Altered mental status type: transient alteration of awareness Qualified Code(s): R40.4 - Transient alteration of awareness (7) Incontinence Status: Acute Qualifiers: Incontinence type: urinary Urinary Incontinence type: urinary incontinence without sensory awareness Qualified Code(s): N39.42 - Incontinence without sensory awareness
[2020-07-12] MEDS: ZOFRAN INJ 4 MG VIAL IVP PRN (13:00)
[2020-07-12] MEDS: K-RIDER 10 MEQ/NS 100 ML 10 MEQ/100 ML BAG IV PRN ×2 (13:08→17:00)
[2020-07-12] MEDS ORDERED: TYLENOL 325 MG TAB PO ONE ×2 (13:47→13:50)
[2020-07-12] MEDS ORDERED: BENADRYL INJ 50 MG VIAL IV ONE (13:47)
[2020-07-12] MEDS ORDERED: NS 500 ML IV 500 ML IV ONE ×2 (13:50→19:19)
[2020-07-12] MEDS ORDERED: BENADRYL INJ 50 MG VIAL ONE (13:50)
[2020-07-13 03:41] LABS: BASOPHILS % (AUTO) 0.1 % (0.2-1.0); HEMATOCRIT 31.4 % (36.0-47.0); LYMPHOCYTES # (AUTO) 1.2 X10^3/uL (1.3-2.9); LYMPHOCYTES % (AUTO) 10.9 % (21.0-51.0); MEAN CORPUSCULAR HEMOGLOBIN 32.9 pg (27.0-34.0); MEAN CORPUSCULAR HGB CONC 33.6 g/dL (33.0-35.0); MEAN CORPUSCULAR VOLUME 97.8 fL (80.0-100.0); MEAN PLATELET VOLUME 8.4 fL (7.4-11.0); MONOCYTES # (AUTO) 0.5 x10^3/uL (0.3-0.8); MONOCYTES % (AUTO) 4.2 % (0.0-13.0); NEUTROPHILS # (AUTO) 9.4 x10^3/uL (2.2-4.8); NEUTROPHILS % (AUTO) 84.8 % (42.0-75.0); PLATELET COUNT 140 X10^3/uL (150.0-450.0); RED BLOOD COUNT 3.21 X10^6/uL (3.5-5.4); RED CELL DISTRIBUTION WIDTH 17.4 % (11.6-16.5); WHITE BLOOD COUNT 11.1 X10^3/uL (3.6-10.0)
[2020-07-13 03:48] LABS: ALANINE AMINOTRANSFERASE 40 Units/L (12-78); ALBUMIN 2.8 g/dL (3.4-5.0); ALKALINE PHOSPHATASE 64 Units/L (46-116); ASPARTATE AMINO TRANSFERASE 31 Units/L (15-37); BLOOD UREA NITROGEN 31 mg/dL (7-18); CALCIUM 9.1 mg/dL (8.5-10.1); CARBON DIOXIDE 26.2 mmol/L (21-32); CHLORIDE 105 mmol/L (98-107); COR CA(FOR HYPOALB) 10.1 mg/dL (8.5-10.1); COR NA(FOR HYPERGLY) 138 mmol/L (136-145); CREATININE 0.98 mg/dL (0.55-1.02); SODIUM 138 mmol/L (136-145); TOTAL PROTEIN 4.6 g/dL (6.4-8.2); eGFR NON BLACK RACES 59 (>60)
[2020-07-13 03:58] LABS: ANISOCYTOSIS SLIGHT; BAND NEUTROPHILS % 3 % (0-10); HEMOGLOBIN 10.6 g/dL (12.0-16.0); PLATELET MORPHOLOGY COMMENT NORMAL (NORMAL)
[2020-07-13 03:59] LABS: ERYTHROCYTE SEDIMENTATION RATE 1 MM/HOUR (0-20)
[2020-07-13] MEDS: SOLU-Medrol 40 MG VIAL IVP SCH ×3 (06:06→21:45)
[2020-07-13] MEDS: ELIQUIS PO SCH ×2 (08:56→20:27)
[2020-07-13] MEDS: PROTONIX TAB 40 MG PO SCH ×2 (08:56→20:27)
[2020-07-13] MEDS: PEPCID TAB 20 MG PO SCH ×2 (08:57→20:27)
[2020-07-13] MEDS: ALBUMIN HUMAN 25%- 100 ML 100 ML IV SCH (08:57)
[2020-07-13] MEDS: SYNTHROID 50 mcg TAB PO SCH (08:57)
[2020-07-13] MEDS: FOLIC ACID TAB 1 MG PO SCH (08:57)
[2020-07-13] MEDS: MAXZIDE 37.5/25 MG PO SCH (08:57)
[2020-07-13] MEDS: LEVAQUIN PREMIX IV 750 MG 750 MG/150 ML BAG IV SCH (08:58)
[2020-07-13] MEDS: [UNRECOGNIZED DRUG - OTHER] IV SCH ×8 (09:06→19:23)
[2020-07-13] MEDS: IMURAN PO SCH (09:06)
[2020-07-13] MEDS: TPN ELECTROLYTES IV SCH ×8 (09:06→19:23)
[2020-07-13] MEDS: CLINIMIX IV SCH ×8 (09:06→19:23)
[2020-07-13] MEDS: TRACE ELEMENTS IV SCH ×8 (09:06→19:23)
[2020-07-13 12:19] LABS: MAGNESIUM 1.7 mg/dL (1.7-2.9); PHOSPHORUS 1.9 mg/dL (2.6-4.7)
[2020-07-13] MEDS: MAGNESIUM SULFATE 1 GRAM/100 mL PREMIX 1 GM/100 ML BAG IV PRN ×2 (14:16→15:42)
[2020-07-13] MEDS: COLACE CAP 100 MG PO SCH (20:26)
[2020-07-13] MEDS: MILK OF MAGNESIA PO SCH (20:27)
[2020-07-14 04:53] LABS: BASOPHILS % (AUTO) 0 % (0.2-1.0); HEMATOCRIT 32.4 % (36.0-47.0); HEMOGLOBIN 11.2 g/dL (12.0-16.0); LYMPHOCYTES # (AUTO) 1.6 X10^3/uL (1.3-2.9); LYMPHOCYTES % (AUTO) 12.9 % (21.0-51.0); MEAN CORPUSCULAR HEMOGLOBIN 33.4 pg (27.0-34.0); MEAN CORPUSCULAR HGB CONC 34.4 g/dL (33.0-35.0); MEAN PLATELET VOLUME 8.3 fL (7.4-11.0); MONOCYTES # (AUTO) 0.6 x10^3/uL (0.3-0.8); MONOCYTES % (AUTO) 4.9 % (0.0-13.0); NEUTROPHILS # (AUTO) 9.9 x10^3/uL (2.2-4.8); NEUTROPHILS % (AUTO) 82.2 % (42.0-75.0); PLATELET COUNT 153 X10^3/uL (150.0-450.0); RED BLOOD COUNT 3.34 X10^6/uL (3.5-5.4); RED CELL DISTRIBUTION WIDTH 17.6 % (11.6-16.5); WHITE BLOOD COUNT 12.1 X10^3/uL (3.6-10.0)
[2020-07-14 05:03] LABS: ALANINE AMINOTRANSFERASE 37 Units/L (12-78); ALBUMIN 2.9 g/dL (3.4-5.0); ALKALINE PHOSPHATASE 70 Units/L (46-116); ASPARTATE AMINO TRANSFERASE 20 Units/L (15-37); BLOOD UREA NITROGEN 33 mg/dL (7-18); CALCIUM 8.9 mg/dL (8.5-10.1); CARBON DIOXIDE 30.5 mmol/L (21-32); CHLORIDE 104 mmol/L (98-107); COR CA(FOR HYPOALB) 9.8 mg/dL (8.5-10.1); COR NA(FOR HYPERGLY) 140 mmol/L (136-145); CREATININE 0.91 mg/dL (0.55-1.02); SODIUM 139 mmol/L (136-145); TOTAL PROTEIN 4.6 g/dL (6.4-8.2); eGFR NON BLACK RACES > 60 (>60)
[2020-07-14] MEDS: SOLU-Medrol 40 MG VIAL IVP SCH ×3 (06:08→21:08)
[2020-07-14] MEDS: K-DUR TAB 20 MEQ PO PRN (06:09)
[2020-07-14] MEDS: TRACE ELEMENTS IV SCH ×8 (09:01→19:18)
[2020-07-14] MEDS: TPN ELECTROLYTES IV SCH ×8 (09:01→19:18)
[2020-07-14] MEDS: [UNRECOGNIZED DRUG - OTHER] IV SCH ×8 (09:01→19:18)
[2020-07-14] MEDS: CLINIMIX IV SCH ×8 (09:01→19:18)
[2020-07-14] MEDS: ELIQUIS PO SCH ×2 (09:14→20:32)
[2020-07-14] MEDS: ALBUMIN HUMAN 25%- 100 ML 100 ML IV SCH (09:14)
[2020-07-14] MEDS: MAXZIDE 37.5/25 MG PO SCH (09:15)
[2020-07-14] MEDS: FOLIC ACID TAB 1 MG PO SCH (09:15)
[2020-07-14] MEDS: PEPCID TAB 20 MG PO SCH ×2 (09:15→20:33)
[2020-07-14] MEDS: LEVAQUIN PREMIX IV 750 MG 750 MG/150 ML BAG IV SCH (09:15)
[2020-07-14] MEDS: MILK OF MAGNESIA PO SCH ×2 (09:15→20:33)
[2020-07-14] MEDS: IMURAN PO SCH (09:15)
[2020-07-14] MEDS: SYNTHROID 50 mcg TAB PO SCH (09:16)
[2020-07-14] MEDS: PROTONIX TAB 40 MG PO SCH (09:16)
[2020-07-14] MEDS: NS 1000 ML 1,000 ML IV SCH ×2 (13:30→15:21)
[2020-07-14] MEDS: K-RIDER 10 MEQ/NS 100 ML 10 MEQ/100 ML BAG IV PRN ×2 (13:30→15:21)
[2020-07-14] MEDS ORDERED: MAALOX or MYLANTA PO PRN ×2 (14:10→14:25)
[2020-07-14] MEDS ORDERED: MAALOX or MYLANTA ONE (14:13)
--- NOTE | 2020-07-14 15:11 | RAD ---
PROCEDURE: Abdomen X-ray 1 View .HISTORY: constipation .TECHNIQUE: AP supine abdomen view .COMPARISON: None .TECHNICAL QUALITY: Satisfactory .FINDINGS:Some gas and feces in the colon without distention. No inordinate amount of feces suggesting constipation. No obstruction or ileus.Surgical clips right upper quadrant.No organomegaly.No abnormal calcifications.No acute bony abnormality.IMPRESSION:Nonspecific bowel-gas pattern.Electronically signed by: Unruly Avila (July 14, 2020 15:09:20)
[2020-07-14] MEDS ORDERED: MAALOX or MYLANTA PO SCH (17:00)
[2020-07-14] MEDS: COLACE CAP 100 MG PO SCH (20:32)
[2020-07-14] MEDS: PROTONIX INJ 40 MG VIAL IVP SCH (20:45)
[2020-07-14] MEDS: ZOFRAN INJ 4 MG VIAL IVP PRN (23:05)
[2020-07-15 05:31] LABS: BASOPHILS % (AUTO) 0.1 % (0.2-1.0); HEMOGLOBIN 10.8 g/dL (12.0-16.0); LYMPHOCYTES # (AUTO) 1.3 X10^3/uL (1.3-2.9); MEAN CORPUSCULAR HEMOGLOBIN 33.4 pg (27.0-34.0); MEAN CORPUSCULAR HGB CONC 33.8 g/dL (33.0-35.0); MEAN CORPUSCULAR VOLUME 98.6 fL (80.0-100.0); MEAN PLATELET VOLUME 8.6 fL (7.4-11.0); MONOCYTES # (AUTO) 0.7 x10^3/uL (0.3-0.8); MONOCYTES % (AUTO) 6.1 % (0.0-13.0); NEUTROPHILS # (AUTO) 9.4 x10^3/uL (2.2-4.8); NEUTROPHILS % (AUTO) 82.8 % (42.0-75.0); PLATELET COUNT 149 X10^3/uL (150.0-450.0); RED BLOOD COUNT 3.24 X10^6/uL (3.5-5.4); WHITE BLOOD COUNT 11.4 X10^3/uL (3.6-10.0)
[2020-07-15 05:43] LABS: ALANINE AMINOTRANSFERASE 34 Units/L (12-78); ALBUMIN 2.9 g/dL (3.4-5.0); ALKALINE PHOSPHATASE 57 Units/L (46-116); ASPARTATE AMINO TRANSFERASE 20 Units/L (15-37); BLOOD UREA NITROGEN 35 mg/dL (7-18); CALCIUM 8.8 mg/dL (8.5-10.1); CARBON DIOXIDE 27.7 mmol/L (21-32); CHLORIDE 105 mmol/L (98-107); COR CA(FOR HYPOALB) 9.7 mg/dL (8.5-10.1); COR NA(FOR HYPERGLY) 138 mmol/L (136-145); CREATININE 0.83 mg/dL (0.55-1.02); SODIUM 137 mmol/L (136-145); TOTAL PROTEIN 4.6 g/dL (6.4-8.2); eGFR NON BLACK RACES > 60 (>60)
[2020-07-15 05:58] LABS: PLATELET MORPHOLOGY COMMENT NORMAL (NORMAL)
[2020-07-15] MEDS: SOLU-Medrol 40 MG VIAL IVP SCH ×3 (06:08→22:16)
[2020-07-15] MEDS: ZOFRAN INJ 4 MG VIAL IVP PRN ×2 (08:46→20:30)
[2020-07-15] MEDS: PROTONIX INJ 40 MG VIAL IVP SCH ×2 (08:47→20:30)
[2020-07-15] MEDS: IMURAN PO SCH (08:47)
[2020-07-15] MEDS: MILK OF MAGNESIA PO SCH ×2 (08:48→20:43)
[2020-07-15] MEDS: FOLIC ACID TAB 1 MG PO SCH (08:49)
[2020-07-15] MEDS: ELIQUIS PO SCH (08:49)
[2020-07-15] MEDS: MAXZIDE 37.5/25 MG PO SCH (08:50)
[2020-07-15] MEDS: PEPCID TAB 20 MG PO SCH ×2 (08:50→20:44)
[2020-07-15] MEDS: LEVAQUIN PREMIX IV 750 MG 750 MG/150 ML BAG IV SCH (08:51)
[2020-07-15] MEDS: ALBUMIN HUMAN 25%- 100 ML 100 ML IV SCH (08:51)
[2020-07-15] MEDS: SYNTHROID 50 mcg TAB PO SCH (08:56)
[2020-07-15] MEDS: ULTRAM PO PRN ×3 (09:09→22:17)
[2020-07-15] MEDS: CLINIMIX IV SCH ×4 (09:10)
[2020-07-15] MEDS: [UNRECOGNIZED DRUG - OTHER] IV SCH ×4 (09:10)
[2020-07-15] MEDS: TPN ELECTROLYTES IV SCH ×4 (09:10)
[2020-07-15] MEDS: TRACE ELEMENTS IV SCH ×4 (09:10)
[2020-07-15 11:03] VITALS: BMI 28.5
--- NOTE | 2020-07-15 11:08 | PCM.PROG ---
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 SHE IS ALSO ANEMIC AND RECEIVED TWO UNITS OF PRBC ON WEDNESDAY. TODAY, SHE CONTINUES WITH WEAKNESS, BUT IS MORE ALERT TODAY COMPARED TO WEDNESDAY. SHE IS ORIENTED TO PERSON, BUT REMAINS CONFUSED TO PLACE AND TIME. STAFF REPORTS THAT SHE CONTINUES TO REQUIRE MODERATE ASSISTANCE FOR ADLs. ON EXAMINATION, HEART IS REGULAR IN RATE AND RHYTHM. BILATERAL LUNGS ARE NOTED WITH DIMINISHED LUNG SOUNDS THROUGHOUT. ABDOMEN IS ROUND, SOFT, AND NOTED TO HAVE MILD, DIFFUSE TENDERNESS TO PALPATION. NORMAL BOWEL SOUNDS IN ALL QUADRANTS. SHE DENIES A BOWEL MOVEMENT IN SEVERAL DAYS. HER VITALS THIS MORNING ARE: 97.8-67-18-96%-116/58. LABS WERE OBTAINED. ABNORMAL LAB VALUES INCLUDE THE FOLLOWING: WBC 11.8, RBC 3.24, HGB 10.8, HCT 32.0, PLT COUNT 149, BUN 35, GLUCOSE 133, TOTAL BILI 1.80, TOTAL PROTEIN 4.6, ALBUMIN 2.9, GLOBULIN 1.7. SHE IS CURRENTLY RECEIVING NORMAL SALINE AT 20 ML/HR, TPN, ALBUMIN 25% IV DAILY, LEVAQUIN 750MG IV DAILY, SOLU-MEDROL 80MG IV TID, IMURAN 100MG PO DAILY, PEPCID 20MG PO BID, PROTONIX 40MG PO BID, HUMULIN R SLIDING SCALE, ELIQUIS 5MG PO BID, FOLIC ACID 2MG PO DAILY, SYNTHROID 50MCG PO DAILY, ZOFRAN 4MG IV Q6H PRN, MAXZIDE 37.5/25MG PO DAILY, ULTRAM 50MG PO TID PRN, AND THE POTASSIUM AND MAGNESIUM PROTOCOLS. WE WILL CONTINUE WITH CURRENT PLAN OF CARE TODAY. PATIENT WILL BE GOING TO THE [facility] FOR PHYSICAL THERAPY, REHAB, AND IV NUTRITION WHEN SHE IS STABLE FOR DISCHARGE. TODAY, WE WILL START CYMBALTA 30MG PO DAILY AND SINEMET 10/100MG TID. WE WILL CONSULT FOR PLACEMENT OF A PORT A CATH DUE TO NEED FOR IV NUTRITION AFTER DISCHARGE. OTHERWISE, WE PLAN TO FOLLOW UP WITH AM LABS AND CONTINUE TO MONITOR. TIME SPENT ON CLINICAL ASSESSMENT, RE VIEWING LABS AND IMAGING, DECISION MAKING, AND DOCUMENTATION GREATER THAN 45 MINUTES. - Past Medical Family Social History Past Med/Fam/Surg Hx: No changes since H&P Allergies: Allergies peanut Allergy (Verified 12/08/18 09:27) - Review of Systems ROS: No change since H&P - Vital Signs and I&O's Vital Signs: Temperature 97.8 F Pulse Rate [Left Brachial] 67 Respiratory Rate 18 Blood Pressure [Right Arm] 102/59 Blood Pressure [Left Arm] 116/58 O2 Sat by Pulse Oximetry 96 Intake and Output: Intake & Output 07/12/20 07/13/20 07/14/20 07/15/20 11:59 11:59 11:59 11:59 Intake Total 2011 3564 / 3564 2830 / 2830 2564 / 2564 Output Total 1600 / 1600 1300 / 1300 2450 / 2450 1300 / 1300 Balance 412 / 412 2264 / 2264 380 / 380 1264 / 1264 - Physical Exam Oriented: Person Eyes: Normal Ear: Normal Nose: Normal Throat: Normal Respiratory: Generalized, Diminished Cardiovascular: Normal : Normal Auscultation: Bowel Sounds: Normal Palpation: Normal Tenderness: Diffuse, Mild. negative: Rebound, Guarding, Rigidity Skin: Normal Musculoskeletal: Instability Psychiatric: Normal Mood Description: Calm Affect: Normal Speech Pattern: Clear - Laboratory and Diagnostics Result Diagrams: 07/15/20 04:01 07/15/20 04:01 Labs: 07/08/20 22:00 Urine,Clean Catch Urine Culture - Final Enterococcus Faecalis Laboratory WBC 11.4 X10^3/uL (3.6-10.0) H 07/15/20 04:01 RBC 3.24 X10^6/uL (3.5-5.4) L 07/15/20 04:01 Hgb 10.8 g/dL (12.0-16.0) L 07/15/20 04:01 Hct 32.0 % (36.0-47.0) L 07/15/20 04:01 MCV 98.6 fL (80.0-100.0) 07/15/20 04:01 MCH 33.4 pg (27.0-34.0) 07/15/20 04:01 MCHC 33.8 g/dL (33.0-35.0) 07/15/20 04:01 RDW 17.0 % (11.6-16.5) H 07/15/20 04:01 Plt Count 149 X10^3/uL (150.0-450.0) L 07/15/20 04:01 Plt Count Comment Decreased (ADEQUATE) A 07/15/20 04:01 MPV 8.6 fL (7.4-11.0) 07/15/20 04:01 Neut % (Auto) 82.8 % (42.0-75.0) H 07/15/20 04:01 Lymph % (Auto) 11.0 % (21.0-51.0) L 07/15/20 04:01 [place] % (Auto) 6.1 % (0.0-13.0) 07/15/20 04:01 Eos % (Auto) 0.0 % (0.9-2.9) L 07/15/20 04:01 Baso % (Auto) 0.1 % (0.2-1.0) L 07/15/20 04:01 Neut # (Auto) 9.4 x10^3/uL (2.2-4.8) H 07/15/20 04:01 Lymph # (Auto) 1.3 X10^3/uL (1.3-2.9) 07/15/20 04:01 [place] # (Auto) 0.7 x10^3/uL (0.3-0.8) 07/15/20 04:01 Eos # (Auto) 0.0 x10^3/uL (0.0-0.2) 07/15/20 04:01 Baso # (Auto) 0.0 X10^3/uL (0.0-0.1) 07/15/20 04:01 Absolute Nucleated RBC 0.1 /100WBC 07/15/20 04:01 Total Counted 100 07/15/20 04:01 Neutrophils % (Manual) 86 % (39-76) H 07/15/20 04:01 Band Neutrophils % 3 % (0-10) 07/13/20 03:27 Lymphocytes % (Manual) 13 % (13-43) 07/15/20 04:01 Monocytes % (Manual) 1 % (4-9) L 07/15/20 04:01 Eosinophils % (Manual) 1 % (0-6) 07/08/20 15:14 Plt Morphology Comment Normal (NORMAL) 07/15/20 04:01 RBC Morphology Normal (NORMAL) 07/15/20 04:01 Poikilocytosis Slight A 07/08/20 15:14 Anisocytosis Slight A 07/13/20 03:27 ESR 1 MM/HOUR (0-20) 07/13/20 03:27 Absolute Retic 0.0598 10^6/uL 07/12/20 09:56 Percent Retic 2.41 % (0.8-2.2) H 07/12/20 09:56 PT 15.4 SECONDS (11.8-14.3) 07/09/20 08:50 INR Target Range - 07/09/20 08:50 INR 1.28 (0.8-1.3) 07/09/20 08:50 APTT 23.5 SECONDS (22.9-36.5) 07/09/20 08:50 PTT Comment - 07/09/20 08:50 Sodium 137 mmol/L (136-145) 07/15/20 04:01 Corrected Sodium 138 mmol/L (136-145) 07/15/20 04:01 Potassium 4.2 mmol/L (3.5-5.1) 07/15/20 04:01 Chloride 105 mmol/L (98-107) 07/15/20 04:01 Carbon Dioxide 27.7 mmol/L (21-32) 07/15/20 04:01 BUN 35 mg/dL (7-18) H 07/15/20 04:01 Creatinine 0.83 mg/dL (0.55-1.02) 07/15/20 04:01 Est GFR (MDRD) Af Amer > 60 (>60) 07/15/20 04:01 Est GFR (MDRD) Non-Af > 60 (>60) 07/15/20 04:01 Glucose 133 mg/dL (65-99) H 07/15/20 04:01 POC Glucose (mg/dL) 144 mg/dL (65-99) H 07/15/20 03:08 Calcium 8.8 mg/dL (8.5-10.1) 07/15/20 04:01 Corrected Calcium 9.7 mg/dL (8.5-10.1) 07/15/20 04:01 Phosphorus 1.9 mg/dL (2.6-4.7) L 07/13/20 11:26 Magnesium 2.6 mg/dL (1.7-2.9) 07/14/20 04:31 Iron 81 ug/dL (50-175) 07/12/20 09:56 Transferrin 124 mg/dL (202-364) L 07/12/20 09:56 Ferritin 291 ng/mL (8-252) H 07/12/20 09:56 Total Bilirubin 1.80 mg/dL (0.2-1.0) H 07/15/20 04:01 AST 20 Units/L (15-37) 07/15/20 04:01 ALT 34 Units/L (12-78) 07/15/20 04:01 Alkaline Phosphatase 57 Units/L (46-116) 07/15/20 04:01 Ammonia 10 umol/L (11-32) L 07/09/20 02:45 Creatine Kinase 19 Units/L (26-192) L 07/09/20 02:45 CK-MB (CK-2) 1.0 ng/mL (0-4.0) 07/09/20 02:45 CK/CKMB % Calc 5.3 % (<4) 07/09/20 02:45 Troponin I 0.06 ng/mL (0-1.5) 07/09/20 02:45 C-Reactive Protein 0.50 mg/L (0-3.0) 07/13/20 03:27 Total Protein 4.6 g/dL (6.4-8.2) L 07/15/20 04:01 Albumin 2.9 g/dL (3.4-5.0) L 07/15/20 04:01 Globulin 1.7 g/dL (2.5-4.5) L 07/15/20 04:01 Albumin/Globulin Ratio 1.7 Ratio (1.1-2.1) 07/15/20 04:01 Prealbumin 25.1 mg/dL (18-35.7) 07/11/20 04:10 Triglycerides 49 mg/dL (0-150) 07/13/20 11:26 Vitamin B12 496 pg/mL (193-986) 07/12/20 09:56 Folate > 20.0 ng/mL (>8.6) 07/12/20 09:56 Specimen Type Catherized urine 07/08/20 22:00 Urine Color Straw (YELLOW) 07/08/20 22:00 Urine Appearance Clear (CLEAR) 07/08/20 22:00 Urine pH 6.5 (5.0 - 8.0) 07/08/20 22:00 Ur Specific [place] 1.010 (1.000-1.030) 07/08/20 22:00 Urine Protein Negative (NEGATIVE) 07/08/20 22:00 Urine Glucose (UA) Negative (NEGATIVE) 07/08/20 22:00 Urine Ketones Negative (NEGATIVE) 07/08/20 22:00 Urine Occult Blood 1+ (NEGATIVE) 07/08/20 22:00 Urine Nitrite Negative (NEGATIVE) 07/08/20 22:00 Urine Bilirubin Negative (NEGATIVE) 07/08/20 22:00 Urine Urobilinogen Normal (NORMAL) 07/08/20 22:00 Ur Leukocyte Esterase Negative (NEGATIVE) 07/08/20 22:00 Urine RBC 0-2 /HPF (0-3) 07/08/20 22:00 Urine WBC None seen /HPF (0-5) 07/08/20 22:00 Ur Squamous Epith Cells Few /HPF (NEGATIVE) 07/08/20 22:00 Urine Bacteria 1+ /HPF (NEGATIVE) 07/08/20 22:00 Hyaline Casts Few /LPF (NEGATIVE) 07/08/20 22:00 Ur Culture Indicated? Yes/culture set up 07/08/20 22:00 SARS CoV-2 RNA Rapid ABDOUL Negative (NEGATIVE) 07/08/20 13:41 Blood Type O POSITIVE 07/12/20 09:56 Antibody Screen Negative 07/12/20 09:56 Crossmatch See Detail 07/12/20 09:56 - Plan (1) PACKING [employer]OM WORKER vasculitis Status: Acute Plan: NORMAL SALINE AT 20 ML/HR, TPN, ALBUMIN 25% IV DAILY, LEVAQUIN 750MG IV DAILY, IMURAN 100MG PO DAILY, SOLU-MEDROL 80MG IV Q8H, PEPCID 20MG PO BID, PROTONIX 40MG PO BID, HUMULIN R SLIDING SCALE, ELIQUIS 5MG PO BID, FOLIC ACID 2MG PO DAILY, SYNTHROID 50MCG PO DAILY, ZOFRAN 4MG IV Q6H PRN, MAXZIDE 37.5/25MG PO DAILY, ULTRAM 50MG PO TID PRN, AND THE POTASSIUM AND MAGNESIUM PROTOCOLS. (2) Encephalopathy Status: Acute (3) Urinary tract infection Status: Acute Qualifiers: Urinary tract infection type: acute cystitis Hematuria presence: without hematuria Qualified Code(s): N30.00 - Acute cystitis without hematuria (4) Lethargy Status: Acute (5) Generalized weakness Status: Acute (6) Altered mental status Status: Acute Qualifiers: Altered mental status type: transient alteration of awareness Qualified Code(s): R40.4 - Transient alteration of awareness (7) Incontinence Status: Acute Qualifiers: Incontinence type: urinary Urinary Incontinence type: urinary incontinence without sensory awareness Qualified Code(s): N39.42 - Incontinence without sensory awareness
[2020-07-15] MEDS: MIRALAX POWDER (1 DOSE 17 G) PO SCH (13:35)
[2020-07-15] MEDS: SINEMET (PLAIN) 10/100 MG PO SCH ×2 (13:35→22:16)
[2020-07-15] MEDS: CYMBALTA PO SCH (13:35)
[2020-07-15] MEDS: COLACE CAP 100 MG PO SCH ×2 (13:36→20:30)
[2020-07-16] MEDS: SOLU-Medrol 40 MG VIAL IVP SCH ×3 (05:32→21:07)
[2020-07-16] MEDS: SINEMET (PLAIN) 10/100 MG PO SCH ×3 (05:32→21:07)
[2020-07-16 06:32] LABS: BASOPHILS % (AUTO) 0.1 % (0.2-1.0); HEMATOCRIT 31.5 % (36.0-47.0); HEMOGLOBIN 11.1 g/dL (12.0-16.0); LYMPHOCYTES # (AUTO) 0.9 X10^3/uL (1.3-2.9); MEAN CORPUSCULAR HEMOGLOBIN 34.2 pg (27.0-34.0); MEAN CORPUSCULAR HGB CONC 35.2 g/dL (33.0-35.0); MEAN CORPUSCULAR VOLUME 97.3 fL (80.0-100.0); MEAN PLATELET VOLUME 8.1 fL (7.4-11.0); MONOCYTES # (AUTO) 0.8 x10^3/uL (0.3-0.8); MONOCYTES % (AUTO) 7.5 % (0.0-13.0); NEUTROPHILS # (AUTO) 8.5 x10^3/uL (2.2-4.8); NEUTROPHILS % (AUTO) 83.4 % (42.0-75.0); PLATELET COUNT 137 X10^3/uL (150.0-450.0); RED BLOOD COUNT 3.23 X10^6/uL (3.5-5.4); RED CELL DISTRIBUTION WIDTH 16.8 % (11.6-16.5); WHITE BLOOD COUNT 10.2 X10^3/uL (3.6-10.0)
[2020-07-16 06:55] LABS: ALANINE AMINOTRANSFERASE 39 Units/L (12-78); ALKALINE PHOSPHATASE 56 Units/L (46-116); ASPARTATE AMINO TRANSFERASE 32 Units/L (15-37); BLOOD UREA NITROGEN 36 mg/dL (7-18); CARBON DIOXIDE 25.9 mmol/L (21-32); CHLORIDE 103 mmol/L (98-107); COR CA(FOR HYPOALB) 9.8 mg/dL (8.5-10.1); COR NA(FOR HYPERGLY) 136 mmol/L (136-145); CREATININE 0.76 mg/dL (0.55-1.02); SODIUM 135 mmol/L (136-145); TOTAL PROTEIN 4.8 g/dL (6.4-8.2); eGFR NON BLACK RACES > 60 (>60)
[2020-07-16 07:06] LABS: PLATELET MORPHOLOGY COMMENT NORMAL (NORMAL)
[2020-07-16] MEDS ORDERED: LR 1000 ML IV 1,000 ML IV ONE (08:09)
[2020-07-16] MEDS ORDERED: DECADRON INJ ONE (08:10)
[2020-07-16] MEDS ORDERED: TORADOL 30 MG VIAL ONE (08:10)
[2020-07-16] MEDS ORDERED: XYLOCAINE 1 % (PLAIN) ONE ×2 (08:10)
[2020-07-16] MEDS ORDERED: DIPRIVAN VIAL ONE (08:10)
[2020-07-16] MEDS ORDERED: ANCEF 1 GRAM IV PREMIX* 1 G/50 ML BAG IV ONE (08:14)
[2020-07-16] MEDS ORDERED: POLYMYXIN B SULFATE ONE (08:19)
--- NOTE | 2020-07-16 09:27 | RAD ---
HISTORYPORT PLACEMENTSTUDYCHEST, 1 VIEWCOMPARISONChest film July 08, 2020.FINDINGSThe trachea is midline. The cardiac silhouette is unremarkable . The lungs are clear without focal infiltrate or effusion. A right internal jugular central venous catheter was in place previously. A new left subclavian port is been placed in the tip is in good position in the superior vena cava. There is no pneumothorax on the left. The bony thorax is unremarkable.IMPRESSIONNew left subclavian port in place and prior right internal jugular central venous catheter in place. The lungs are clear. There is no pneumothorax after left subclavian port placement.Electronically signed by: JORGE RICKS (July 16, 2020 09:24:57)
[2020-07-16] MEDS ORDERED: NORCO 5/325 MG TAB PO PRN (09:29)
[2020-07-16] MEDS: COLACE CAP 100 MG PO SCH ×2 (10:43→21:07)
[2020-07-16] MEDS: FOLIC ACID TAB 1 MG PO SCH (10:43)
[2020-07-16] MEDS: ALBUMIN HUMAN 25%- 100 ML 100 ML IV SCH (10:43)
[2020-07-16] MEDS: CYMBALTA PO SCH (10:43)
[2020-07-16] MEDS: SYNTHROID 50 mcg TAB PO SCH (10:44)
[2020-07-16] MEDS: MAXZIDE 37.5/25 MG PO SCH (10:44)
[2020-07-16] MEDS: PEPCID TAB 20 MG PO SCH ×2 (10:44→21:07)
[2020-07-16] MEDS: MIRALAX POWDER (1 DOSE 17 G) PO SCH (10:45)
[2020-07-16] MEDS: MILK OF MAGNESIA PO SCH ×2 (10:45→21:08)
[2020-07-16] MEDS: PROTONIX INJ 40 MG VIAL IVP SCH ×2 (10:45→21:07)
[2020-07-16] MEDS: IMURAN PO SCH (10:46)
[2020-07-16] MEDS: TPN ELECTROLYTES IV SCH ×8 (11:47)
[2020-07-16] MEDS: TRACE ELEMENTS IV SCH ×8 (11:47)
[2020-07-16] MEDS: CLINIMIX IV SCH ×8 (11:47)
[2020-07-16] MEDS: [UNRECOGNIZED DRUG - OTHER] IV SCH ×8 (11:47)
[2020-07-16] MEDS: LEVAQUIN PREMIX IV 750 MG 750 MG/150 ML BAG IV SCH (12:01)
[2020-07-16] MEDS: NS 1000 ML 1,000 ML IV SCH (12:01)
[2020-07-16 12:47] LABS: MAGNESIUM 2.4 mg/dL (1.7-2.9); PHOSPHORUS 2.6 mg/dL (2.6-4.7)
--- NOTE | 2020-07-16 13:13 | PCM.PROG ---
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 SHE IS ALSO ANEMIC AND RECEIVED TWO UNITS OF PRBC LAST WEEK. TODAY, SHE IS ALERT, SITTING UP IN BED ON MORNING ROUNDS. SHE CONTINUES WITH WEAKNESS, BUT IS MUCH MORE ALERT AND ORIENTED TODAY. SHE IS ORIENTED TO PERSON AND PLACE TODAY. STAFF REPORTS THAT SHE CONTINUES TO REQUIRE MODERATE ASSISTANCE FOR ADLs. ON EXAMINATION, HEART IS REGULAR IN RATE AND RHYTHM. BILATERAL LUNGS ARE NOTED WITH DIMINISHED LUNG SOUNDS THROUGHOUT. ABDOMEN IS ROUND, SOFT, AND NOTED TO HAVE MILD, DIFFUSE TENDERNESS TO PALPATION. NORMAL BOWEL SOUNDS IN ALL QUADRANTS. SHE DENIES A BOWEL MOVEMENT IN SEVERAL D AYS. HER VITALS THIS MORNING ARE: 98.3-81-18-97%-120/59. LABS WERE OBTAINED. ABNORMAL LAB VALUES INCLUDE THE FOLLOWING: WBC 10.2, RBC 3.23, HGB 11.1, HCT 31.5, PLT COUNT 137, SODIUM 135, BUN 36, GLUCOSE 123, TOTAL BILI 2.10, TOTAL PROTEIN 4.8, ALBUMIN 3.0, GLOBULIN 1.8. SHE IS CURRENTLY RECEIVING NORMAL SALINE AT 20 ML/HR, TPN, ALBUMIN 25% IV DAILY, LEVAQUIN 750MG IV DAILY, SOLU-MEDROL 80MG IV TID, IMURAN 100MG PO DAILY, PEPCID 20MG PO BID, PROTONIX 40MG PO BID, HUMULIN R SLIDING SCALE, ELIQUIS 5MG PO BID, FOLIC ACID 2MG PO DAILY, SYNTHROID 50MCG PO DAILY, ZOFRAN 4MG IV Q6H PRN, CYMBALTA 30MG PO DAILY, SINEMET 10/100MG TID, MAXZIDE 37.5/25MG PO DAILY, ULTRAM 50MG PO TID PRN, AND THE POTASSIUM AND MAGNESIUM PROTOCOLS. WE WILL CONTINUE WITH CURRENT PLAN OF CARE TODAY. PATIENT WILL BE GOING TO THE [facility] FOR PHYSICAL THERAPY, REHAB, AND IV NUTRITION WHEN SHE IS STABLE FOR DISCHARGE. WILL TAKE PATIENT TO THE OR TODAY FOR PORT A CATH PLACEMENT. OTHERWISE, WE PLAN TO FOLLOW UP WITH AM LABS AND CONTINUE TO MONITOR. TIME SPENT ON CLINICAL ASSESSMENT, REVIEWING LABS AND IMAG ING, DECISION MAKING, AND DOCUMENTATION GREATER THAN 45 MINUTES. - Past Medical Family Social History Past Med/Fam/Surg Hx: No changes since H&P Allergies: Allergies peanut Allergy (Verified 12/08/18 09:27) - Review of Systems ROS: No change since H&P - Vital Signs and I&O's Vital Signs: Temperature 98.3 F Pulse Rate [Left Brachial] 81 Respiratory Rate 18 Blood Pressure [Right Arm] 102/59 Blood Pressure [Left Arm] 120/59 O2 Sat by Pulse Oximetry 97 Intake and Output: Intake & Output 07/14/20 07/15/20 07/16/20 07/17/20 11:59 11:59 11:59 11:59 Intake Total 2830 / 2830 2564 / 2564 1452 / 1452 Output Total 2450 / 2450 1300 / 1300 1660 / 1660 Balance 380 / 380 1264 / 1264 -208 / -208 - Physical Exam Oriented: Person Eyes: Normal Ear: Normal Nose: Normal Throat: Normal Respiratory: Generalized, Diminished Cardiovascular: Normal : Normal Auscultation: Bowel Sounds: Normal Palpation: Normal Tenderness: Diffuse, Mild. negative: Rebound, Guarding, Rigidity Skin: Normal Musculoskeletal: Instability Psychiatric: Normal Mood Description: Calm Affect: Normal Speech Pattern: Clear, Appropriate - Laboratory and Diagnostics Result Diagrams: 07/16/20 06:00 07/16/20 06:00 Labs: 07/08/20 22:00 Urine,Clean Catch Urine Culture - Final Enterococcus Faecalis Laboratory WBC 10.2 X10^3/uL (3.6-10.0) H 07/16/20 06:00 RBC 3.23 X10^6/uL (3.5-5.4) L 07/16/20 06:00 Hgb 11.1 g/dL (12.0-16.0) L 07/16/20 06:00 Hct 31.5 % (36.0-47.0) L 07/16/20 06:00 MCV 97.3 fL (80.0-100.0) 07/16/20 06:00 MCH 34.2 pg (27.0-34.0) H 07/16/20 06:00 MCHC 35.2 g/dL (33.0-35.0) H 07/16/20 06:00 RDW 16.8 % (11.6-16.5) H 07/16/20 06:00 Plt Count 137 X10^3/uL (150.0-450.0) L 07/16/20 06:00 Plt Count Comment Decreased (ADEQUATE) A 07/16/20 06:00 MPV 8.1 fL (7.4-11.0) 07/16/20 06:00 Neut % (Auto) 83.4 % (42.0-75.0) H 07/16/20 06:00 Lymph % (Auto) 9.0 % (21.0-51.0) L 07/16/20 06:00 [place] % (Auto) 7.5 % (0.0-13.0) 07/16/20 06:00 Eos % (Auto) 0.0 % (0.9-2.9) L 07/16/20 06:00 Baso % (Auto) 0.1 % (0.2-1.0) L 07/16/20 06:00 Neut # (Auto) 8.5 x10^3/uL (2.2-4.8) H 07/16/20 06:00 Lymph # (Auto) 0.9 X10^3/uL (1.3-2.9) L 07/16/20 06:00 [place] # (Auto) 0.8 x10^3/uL (0.3-0.8) 07/16/20 06:00 Eos # (Auto) 0.0 x10^3/uL (0.0-0.2) 07/16/20 06:00 Baso # (Auto) 0.0 X10^3/uL (0.0-0.1) 07/16/20 06:00 Absolute Nucleated RBC 0.1 /100WBC 07/16/20 06:00 Total Counted 100 07/16/20 06:00 Neutrophils % (Manual) 81 % (39-76) H 07/16/20 06:00 Band Neutrophils % 3 % (0-10) 07/13/20 03:27 Lymphocytes % (Manual) 15 % (13-43) 07/16/20 06:00 Monocytes % (Manual) 4 % (4-9) 07/16/20 06:00 Eosinophils % (Manual) 1 % (0-6) 07/08/20 15:14 Plt Morphology Comment Normal (NORMAL) 07/16/20 06:00 RBC Morphology Normal (NORMAL) 07/16/20 06:00 Poikilocytosis Slight A 07/08/20 15:14 Anisocytosis Slight A 07/13/20 03:27 ESR 1 MM/HOUR (0-20) 07/13/20 03:27 Absolute Retic 0.0598 10^6/uL 07/12/20 09:56 Percent Retic 2.41 % (0.8-2.2) H 07/12/20 09:56 PT 15.4 SECONDS (11.8-14.3) 07/09/20 08:50 INR Target Range - 07/09/20 08:50 INR 1.28 (0.8-1.3) 07/09/20 08:50 APTT 23.5 SECONDS (22.9-36.5) 07/09/20 08:50 PTT Comment - 07/09/20 08:50 Sodium 135 mmol/L (136-145) L 07/16/20 06:00 Corrected Sodium 136 mmol/L (136-145) 07/16/20 06:00 Potassium 4.2 mmol/L (3.5-5.1) 07/16/20 06:00 Chloride 103 mmol/L (98-107) 07/16/20 06:00 Carbon Dioxide 25.9 mmol/L (21-32) 07/16/20 06:00 BUN 36 mg/dL (7-18) H 07/16/20 06:00 Creatinine 0.76 mg/dL (0.55-1.02) 07/16/20 06:00 Est GFR (MDRD) Af Amer > 60 (>60) 07/16/20 06:00 Est GFR (MDRD) Non-Af > 60 (>60) 07/16/20 06:00 Glucose 123 mg/dL (65-99) H 07/16/20 06:00 POC Glucose (mg/dL) 125 mg/dL (65-99) H 07/16/20 11:52 Calcium 9.0 mg/dL (8.5-10.1) 07/16/20 06:00 Corrected Calcium 9.8 mg/dL (8.5-10.1) 07/16/20 06:00 Phosphorus 2.6 mg/dL (2.6-4.7) 07/16/20 12:23 Magnesium 2.4 mg/dL (1.7-2.9) 07/16/20 12:23 Iron 81 ug/dL (50-175) 07/12/20 09:56 Transferrin 124 mg/dL (202-364) L 07/12/20 09:56 Ferritin 291 ng/mL (8-252) H 07/12/20 09:56 Total Bilirubin 2.10 mg/dL (0.2-1.0) H 07/16/20 06:00 AST 32 Units/L (15-37) 07/16/20 06:00 ALT 39 Units/L (12-78) 07/16/20 06:00 Alkaline Phosphatase 56 Units/L (46-116) 07/16/20 06:00 Ammonia 10 umol/L (11-32) L 07/09/20 02:45 Creatine Kinase 19 Units/L (26-192) L 07/09/20 02:45 CK-MB (CK-2) 1.0 ng/mL (0-4.0) 07/09/20 02:45 CK/CKMB % Calc 5.3 % (<4) 07/09/20 02:45 Troponin I 0.06 ng/mL (0-1.5) 07/09/20 02:45 C-Reactive Protein 0.50 mg/L (0-3.0) 07/13/20 03:27 Total Protein 4.8 g/dL (6.4-8.2) L 07/16/20 06:00 Albumin 3.0 g/dL (3.4-5.0) L 07/16/20 06:00 Globulin 1.8 g/dL (2.5-4.5) L 07/16/20 06:00 Albumin/Globulin Ratio 1.7 Ratio (1.1-2.1) 07/16/20 06:00 Prealbumin 25.1 mg/dL (18-35.7) 07/11/20 04:10 Triglycerides 39 mg/dL (0-150) 07/16/20 12:23 Vitamin B12 496 pg/mL (193-986) 07/12/20 09:56 Folate > 20.0 ng/mL (>8.6) 07/12/20 09:56 Specimen Type Catherized urine 07/08/20 22:00 Urine Color Straw (YELLOW) 07/08/20 22:00 Urine Appearance Clear (CLEAR) 07/08/20 22:00 Urine pH 6.5 (5.0 - 8.0) 07/08/20 22:00 Ur Specific [place] 1.010 (1.000-1.030) 07/08/20 22:00 Urine Protein Negative (NEGATIVE) 07/08/20 22:00 Urine Glucose (UA) Negative (NEGATIVE) 07/08/20 22:00 Urine Ketones Negative (NEGATIVE) 07/08/20 22:00 Urine Occult Blood 1+ (NEGATIVE) 07/08/20 22:00 Urine Nitrite Negative (NEGATIVE) 07/08/20 22:00 Urine Bilirubin Negative (NEGATIVE) 07/08/20 22:00 Urine Urobilinogen Normal (NORMAL) 07/08/20 22:00 Ur Leukocyte Esterase Negative (NEGATIVE) 07/08/20 22:00 Urine RBC 0-2 /HPF (0-3) 07/08/20 22:00 Urine WBC None seen /HPF (0-5) 07/08/20 22:00 Ur Squamous Epith Cells Few /HPF (NEGATIVE) 07/08/20 22:00 Urine Bacteria 1+ /HPF (NEGATIVE) 07/08/20 22:00 Hyaline Casts Few /LPF (NEGATIVE) 07/08/20 22:00 Ur Culture Indicated? 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 (2) Encephalopathy Status: Acute (3) Urinary tract infection Status: Acute Qualifiers: Urinary tract infection type: acute cystitis Hematuria presence: without hematuria Qualified Code(s): N30.00 - Acute cystitis without hematuria (4) Lethargy Status: Acute Plan: NORMAL SALINE AT 80 ML/HR, RESUME HOME MEDICATIONS, OBTAIN BRAIN MRI/MRA WITH CONTRAST (5) Generalized weakness Status: Acute (6) Altered mental status Status: Acute Qualifiers: Altered mental status type: transient alteration of awareness Qualified Code(s): R40.4 - Transient alteration of awareness (7) Incontinence Status: Acute Qualifiers: Incontinence type: urinary Urinary Incontinence type: urinary incontinence without sensory awareness Qualified Code(s): N39.42 - Incontinence without sensory awareness
[2020-07-16] MEDS ORDERED: BUTT CREAM (COMPOUND) TOP PRN (22:15)
[2020-07-17] MEDS: [UNRECOGNIZED DRUG - OTHER] IV SCH ×8 (01:31→14:00)
[2020-07-17] MEDS: TRACE ELEMENTS IV SCH ×8 (01:31→14:00)
[2020-07-17] MEDS: CLINIMIX IV SCH ×8 (01:31→14:00)
[2020-07-17] MEDS: TPN ELECTROLYTES IV SCH ×8 (01:31→14:00)
[2020-07-17] MEDS: SINEMET (PLAIN) 10/100 MG PO SCH ×3 (05:38→22:12)
[2020-07-17] MEDS: SOLU-Medrol 40 MG VIAL IVP SCH (05:39)
[2020-07-17 05:55] LABS: BASOPHILS % (AUTO) 0.2 % (0.2-1.0); HEMATOCRIT 30.9 % (36.0-47.0); HEMOGLOBIN 10.4 g/dL (12.0-16.0); LYMPHOCYTES # (AUTO) 0.4 X10^3/uL (1.3-2.9); LYMPHOCYTES % (AUTO) 5.3 % (21.0-51.0); MEAN CORPUSCULAR HEMOGLOBIN 33.6 pg (27.0-34.0); MEAN CORPUSCULAR HGB CONC 33.7 g/dL (33.0-35.0); MEAN CORPUSCULAR VOLUME 99.8 fL (80.0-100.0); MEAN PLATELET VOLUME 8.3 fL (7.4-11.0); MONOCYTES # (AUTO) 0.6 x10^3/uL (0.3-0.8); MONOCYTES % (AUTO) 7.3 % (0.0-13.0); NEUTROPHILS # (AUTO) 6.8 x10^3/uL (2.2-4.8); NEUTROPHILS % (AUTO) 87.2 % (42.0-75.0); PLATELET COUNT 131 X10^3/uL (150.0-450.0); RED CELL DISTRIBUTION WIDTH 16.2 % (11.6-16.5); WHITE BLOOD COUNT 7.7 X10^3/uL (3.6-10.0)
[2020-07-17 05:59] LABS: PREALBUMIN 35.8 mg/dL (18-35.7)
[2020-07-17 06:10] LABS: ALANINE AMINOTRANSFERASE 38 Units/L (12-78); ALBUMIN 2.8 g/dL (3.4-5.0); ALKALINE PHOSPHATASE 51 Units/L (46-116); ASPARTATE AMINO TRANSFERASE 22 Units/L (15-37); BLOOD UREA NITROGEN 46 mg/dL (7-18); CALCIUM 8.8 mg/dL (8.5-10.1); CARBON DIOXIDE 24.3 mmol/L (21-32); CHLORIDE 101 mmol/L (98-107); COR CA(FOR HYPOALB) 9.8 mg/dL (8.5-10.1); COR NA(FOR HYPERGLY) 138 mmol/L (136-145); CREATININE 0.86 mg/dL (0.55-1.02); SODIUM 132 mmol/L (136-145); TOTAL PROTEIN 4.4 g/dL (6.4-8.2); eGFR NON BLACK RACES > 60 (>60)
[2020-07-17] MEDS: ALBUMIN HUMAN 25%- 100 ML 100 ML IV SCH (09:40)
[2020-07-17] MEDS: COLACE CAP 100 MG PO SCH ×2 (09:40→21:30)
[2020-07-17] MEDS: CYMBALTA PO SCH (09:41)
[2020-07-17] MEDS: MAXZIDE 37.5/25 MG PO SCH (09:42)
[2020-07-17] MEDS: FOLIC ACID TAB 1 MG PO SCH (09:42)
[2020-07-17] MEDS: SYNTHROID 50 mcg TAB PO SCH (09:43)
[2020-07-17] MEDS: PEPCID TAB 20 MG PO SCH ×2 (09:43→21:14)
[2020-07-17] MEDS: MILK OF MAGNESIA PO SCH ×2 (09:44→21:14)
[2020-07-17] MEDS: PROTONIX INJ 40 MG VIAL IVP SCH ×2 (09:52→21:13)
[2020-07-17] MEDS: MIRALAX POWDER (1 DOSE 17 G) PO SCH (10:00)
[2020-07-17] MEDS: LEVAQUIN PREMIX IV 750 MG 750 MG/150 ML BAG IV SCH (10:00)
[2020-07-17] MEDS: IMURAN PO SCH (10:00)
[2020-07-17] MEDS: PREDNISONE TAB 20 MG PO SCH ×2 (12:00→21:13)
[2020-07-17] MEDS: MEGACE PO SCH ×2 (12:00→21:12)
[2020-07-17] MEDS ORDERED: DULCOLAX SUPPOSITORY 10 MG RECTAL ONE (12:20)
[2020-07-18] MEDS: SINEMET (PLAIN) 10/100 MG PO SCH ×3 (06:14→21:29)
[2020-07-18 06:42] LABS: BASOPHILS % (AUTO) 0.1 % (0.2-1.0); HEMATOCRIT 29.2 % (36.0-47.0); HEMOGLOBIN 10.4 g/dL (12.0-16.0); LYMPHOCYTES # (AUTO) 1.1 X10^3/uL (1.3-2.9); LYMPHOCYTES % (AUTO) 12.8 % (21.0-51.0); MEAN CORPUSCULAR HEMOGLOBIN 34.7 pg (27.0-34.0); MEAN CORPUSCULAR HGB CONC 35.6 g/dL (33.0-35.0); MEAN CORPUSCULAR VOLUME 97.6 fL (80.0-100.0); MONOCYTES # (AUTO) 1.1 x10^3/uL (0.3-0.8); MONOCYTES % (AUTO) 12.4 % (0.0-13.0); NEUTROPHILS # (AUTO) 6.4 x10^3/uL (2.2-4.8); NEUTROPHILS % (AUTO) 74.7 % (42.0-75.0); PLATELET COUNT 119 X10^3/uL (150.0-450.0); RED BLOOD COUNT 2.99 X10^6/uL (3.5-5.4); RED CELL DISTRIBUTION WIDTH 16.8 % (11.6-16.5); WHITE BLOOD COUNT 8.5 X10^3/uL (3.6-10.0)
[2020-07-18 07:14] LABS: ALANINE AMINOTRANSFERASE 35 Units/L (12-78); ALBUMIN 2.9 g/dL (3.4-5.0); ALKALINE PHOSPHATASE 63 Units/L (46-116); ASPARTATE AMINO TRANSFERASE 21 Units/L (15-37); BLOOD UREA NITROGEN 51 mg/dL (7-18); CALCIUM 9.2 mg/dL (8.5-10.1); CARBON DIOXIDE 30.4 mmol/L (21-32); COR CA(FOR HYPOALB) 10.1 mg/dL (8.5-10.1); CREATININE 0.87 mg/dL (0.55-1.02); TOTAL PROTEIN 4.5 g/dL (6.4-8.2); eGFR NON BLACK RACES > 60 (>60)
[2020-07-18 07:31] LABS: CHLORIDE 101 mmol/L (98-107); COR NA(FOR HYPERGLY) 133 mmol/L (136-145); SODIUM 133 mmol/L (136-145)
[2020-07-18] MEDS: ALBUMIN HUMAN 25%- 100 ML 100 ML IV SCH (09:30)
[2020-07-18] MEDS: CLINIMIX IV SCH ×4 (09:31)
[2020-07-18] MEDS: TPN ELECTROLYTES IV SCH ×4 (09:31)
[2020-07-18] MEDS: COLACE CAP 100 MG PO SCH ×2 (09:31→21:29)
[2020-07-18] MEDS: TRACE ELEMENTS IV SCH ×4 (09:31)
[2020-07-18] MEDS: [UNRECOGNIZED DRUG - OTHER] IV SCH ×4 (09:31)
[2020-07-18] MEDS: CYMBALTA PO SCH (09:32)
[2020-07-18] MEDS: LEVAQUIN PREMIX IV 750 MG 750 MG/150 ML BAG IV SCH (09:32)
[2020-07-18] MEDS: FOLIC ACID TAB 1 MG PO SCH (09:32)
[2020-07-18] MEDS: PREDNISONE TAB 20 MG PO SCH ×2 (09:33→21:29)
[2020-07-18] MEDS: MILK OF MAGNESIA PO SCH ×2 (09:33→21:28)
[2020-07-18] MEDS: MAXZIDE 37.5/25 MG PO SCH (09:33)
[2020-07-18] MEDS: MIRALAX POWDER (1 DOSE 17 G) PO SCH (09:33)
[2020-07-18] MEDS: MEGACE PO SCH ×2 (09:33→21:29)
[2020-07-18] MEDS: SYNTHROID 50 mcg TAB PO SCH (09:34)
[2020-07-18] MEDS: PROTONIX INJ 40 MG VIAL IVP SCH ×2 (09:34→21:28)
[2020-07-18] MEDS: PEPCID TAB 20 MG PO SCH ×2 (09:34→21:29)
[2020-07-18] MEDS ORDERED: DULCOLAX SUPPOSITORY 10 MG RECTAL ONE ×2 (10:29→12:21)
[2020-07-18] MEDS: IMURAN PO SCH (12:00)
--- NOTE | 2020-07-18 12:22 | PCM.PROG ---
Progress Note - Progress Note for Day of Date of Exam: 07/17/20 - Subjective Subjective: IS BEING TREATED FOR COSMETOLOGY INSTRUCTOR VASCULITIS, ENCEPHALOPATHY, UTI, LETHARGY, AND GENERALIZED WEAKNESS. SHE IS ALSO ANEMIC AND RECEIVED TWO UNITS OF PRBC LAST WEEK. TODAY, SHE IS ALERT, SITTING UP IN CHAIR ON MORNING ROUNDS. SHE CONTINUES WITH WEAKNESS, BUT STAFF REPORTS THAT SHE DOES SEEM TO BE SHOWING IMPROVEMENT WITH HER STRENGTH. SHE IS ORIENTED TO PERSON AND PLACE TODAY. SHE CONTINUES TO DENY A BOWEL MOVEMENT IN SEVERAL DAYS. ON EXAMINATION, HEART IS REGULAR IN RATE AND RHYTHM. BILATERAL LUNGS ARE NOTED WITH DIMINISHED LUNG SOUNDS THROUGHOUT. ABDOMEN IS ROUND, SOFT, AND NOTED TO HAVE MILD, DIFFUSE TENDERNESS TO PALPATION. NORMAL BOWEL SOUNDS IN ALL QUADRANTS. HER VITALS THIS M ORN ARE: 98.2-80-24-100%-115/75. LABS WERE OBTAINED. ABNORMAL LAB VALUES INCLUDE THE FOLLOWING: RBC 3.10, HGB 10.4, HCT 30.9, PLT COUNT 131, SODIUM 133, BUN 51, GLUCOSE 112, TOTAL BILI 1.50, TOTAL PROTEIN 4.5, ALBUMIN 2.9, GLOBULIN 1.6. SHE IS CURRENTLY RECEIVING NORMAL SALINE AT 20 ML/HR, TPN, ALBUMIN 25% IV DAILY, LEVAQUIN 750MG IV DAILY, SOLU-MEDROL 80MG IV TID, IMURAN 100MG PO DAILY, PEPCID 20MG PO BID, PROTONIX 40MG PO BID, HUMULIN R SLIDING SCALE, ELIQUIS 5MG PO BID, FOLIC ACID 2MG PO DAILY, SYNTHROID 50MCG PO DAILY, ZOFRAN 4MG IV Q6H PRN, CYMBALTA 30MG PO DAILY, SINEMET 10/100MG TID, MAXZIDE 37.5/25MG PO DAILY, ULTRAM 50MG PO TID PRN, AND THE POTASSIUM AND MAGNESIUM PROTOCOLS. TODAY, WE WILL DISCONTINUE THE SOLU-MEDROL AND ADD PREDNISONE 20MG PO BID AND MEGACE 40MG PO BID. OTHERWISE, WE WILL CONTINUE WITH CURRENT PLAN OF CARE TODAY. PATIENT WILL BE GOING TO THE [facility] FOR PHYSICAL THERAPY, REHAB, AND IV NUTRITION WHEN SHE IS STABLE FOR DISCHARGE. OTHERWISE, WE PLAN TO FOLLOW UP WITH AM LABS AND CONTINUE TO MONITOR. TIME SPENT ON CLINICAL ASSESSMENT, REVIEWING LABS AND IMAGING, DECISION MAKING, AND DOCUMENTATION GREATER THAN 45 MINUTES. - Past Medical Family Social History Past Med/Fam/Surg Hx: No changes since H&P Allergies: Allergies peanut Allergy (Verified 12/08/18 09:27) - Review of Systems ROS: No change since H&P - Vital Signs and I&O's Vital Signs: Temperature 98.2 F Pulse Rate [Left Brachial] 80 Respiratory Rate 18 Blood Pressure [Right Arm] 115/75 Blood Pressure [Left Arm] 128/64 O2 Sat by Pulse Oximetry 100 Intake and Output: Intake & Output 07/16/20 07/17/20 07/18/20 07/19/20 11:59 11:59 11:59 11:59 Intake Total 1452 / 1452 2217 / 2217 1136 / 1136 Output Total 1660 / 1660 200 / 200 0 / 0 Balance -208 / -208 2016 1136 / 1136 - Physical Exam Oriented: Person Eyes: Normal Ear: Normal Nose: Normal Throat: Normal Respiratory: Generalized, Diminished Cardiovascular: Normal : Normal Auscultation: Bowel Sounds: Normal Palpation: Normal Tenderness: Diffuse, Mild. negative: Rebound, Guarding, Rigidity Skin: Normal Musculoskeletal: Instability Psychiatric: Normal Mood Description: Calm Affect: Normal Speech Pattern: Clear, Appropriate - Laboratory and Diagnostics Result Diagrams: 07/18/20 06:20 07/18/20 06:20 Labs: 07/08/20 22:00 Urine,Clean Catch Urine Culture - Final Enterococcus Faecalis Laboratory WBC 8.5 X10^3/uL (3.6-10.0) 07/18/20 06:20 RBC 2.99 X10^6/uL (3.5-5.4) L 07/18/20 06:20 Hgb 10.4 g/dL (12.0-16.0) L 07/18/20 06:20 Hct 29.2 % (36.0-47.0) L 07/18/20 06:20 MCV 97.6 fL (80.0-100.0) 07/18/20 06:20 MCH 34.7 pg (27.0-34.0) H 07/18/20 06:20 MCHC 35.6 g/dL (33.0-35.0) H 07/18/20 06:20 RDW 16.8 % (11.6-16.5) H 07/18/20 06:20 Plt Count 119 X10^3/uL (150.0-450.0) L 07/18/20 06:20 Plt Count Comment Decreased (ADEQUATE) A 07/16/20 06:00 MPV 8.0 fL (7.4-11.0) 07/18/20 06:20 Neut % (Auto) 74.7 % (42.0-75.0) 07/18/20 06:20 Lymph % (Auto) 12.8 % (21.0-51.0) L 07/18/20 06:20 [place] % (Auto) 12.4 % (0.0-13.0) 07/18/20 06:20 Eos % (Auto) 0.0 % (0.9-2.9) L 07/18/20 06:20 Baso % (Auto) 0.1 % (0.2-1.0) L 07/18/20 06:20 Neut # (Auto) 6.4 x10^3/uL (2.2-4.8) H 07/18/20 06:20 Lymph # (Auto) 1.1 X10^3/uL (1.3-2.9) L 07/18/20 06:20 [place] # (Auto) 1.1 x10^3/uL (0.3-0.8) H 07/18/20 06:20 Eos # (Auto) 0.0 x10^3/uL (0.0-0.2) 07/18/20 06:20 Baso # (Auto) 0.0 X10^3/uL (0.0-0.1) 07/18/20 06:20 Absolute Nucleated RBC 0.1 /100WBC 07/18/20 06:20 Total Counted 100 07/16/20 06:00 Neutrophils % (Manual) 81 % (39-76) H 07/16/20 06:00 Band Neutrophils % 3 % (0-10) 07/13/20 03:27 Lymphocytes % (Manual) 15 % (13-43) 07/16/20 06:00 Monocytes % (Manual) 4 % (4-9) 07/16/20 06:00 Eosinophils % (Manual) 1 % (0-6) 07/08/20 15:14 Plt Morphology Comment Normal (NORMAL) 07/16/20 06:00 RBC Morphology Normal (NORMAL) 07/16/20 06:00 Poikilocytosis Slight A 07/08/20 15:14 Anisocytosis Slight A 07/13/20 03:27 ESR 1 MM/HOUR (0-20) 07/13/20 03:27 Absolute Retic 0.0598 10^6/uL 07/12/20 09:56 Percent Retic 2.41 % (0.8-2.2) H 07/12/20 09:56 PT 15.4 SECONDS (11.8-14.3) 07/09/20 08:50 INR Target Range - 07/09/20 08:50 INR 1.28 (0.8-1.3) 07/09/20 08:50 APTT 23.5 SECONDS (22.9-36.5) 07/09/20 08:50 PTT Comment - 07/09/20 08:50 Sodium 133 mmol/L (136-145) L 07/18/20 06:20 Corrected Sodium 133 mmol/L (136-145) L 07/18/20 06:20 Potassium 4.7 mmol/L (3.5-5.1) 07/18/20 06:20 Chloride 101 mmol/L (98-107) 07/18/20 06:20 Carbon Dioxide 30.4 mmol/L (21-32) 07/18/20 06:20 BUN 51 mg/dL (7-18) H 07/18/20 06:20 Creatinine 0.87 mg/dL (0.55-1.02) 07/18/20 06:20 Est GFR (MDRD) Af Amer > 60 (>60) 07/18/20 06:20 Est GFR (MDRD) Non-Af > 60 (>60) 07/18/20 06:20 Glucose 112 mg/dL (65-99) H 07/18/20 06:20 POC Glucose (mg/dL) 97 mg/dL (65-99) 07/18/20 11:11 Calcium 9.2 mg/dL (8.5-10.1) 07/18/20 06:20 Corrected Calcium 10.1 mg/dL (8.5-10.1) 07/18/20 06:20 Phosphorus 2.6 mg/dL (2.6-4.7) 07/16/20 12:23 Magnesium 2.4 mg/dL (1.7-2.9) 07/16/20 12:23 Iron 81 ug/dL (50-175) 07/12/20 09:56 Transferrin 124 mg/dL (202-364) L 07/12/20 09:56 Ferritin 291 ng/mL (8-252) H 07/12/20 09:56 Total Bilirubin 1.50 mg/dL (0.2-1.0) H 07/18/20 06:20 AST 21 Units/L (15-37) 07/18/20 06:20 ALT 35 Units/L (12-78) 07/18/20 06:20 Alkaline Phosphatase 63 Units/L (46-116) 07/18/20 06:20 Ammonia 10 umol/L (11-32) L 07/09/20 02:45 Creatine Kinase 19 Units/L (26-192) L 07/09/20 02:45 CK-MB (CK-2) 1.0 ng/mL (0-4.0) 07/09/20 02:45 CK/CKMB % Calc 5.3 % (<4) 07/09/20 02:45 Troponin I 0.06 ng/mL (0-1.5) 07/09/20 02:45 C-Reactive Protein 0.50 mg/L (0-3.0) 07/13/20 03:27 Total Protein 4.5 g/dL (6.4-8.2) L 07/18/20 06:20 Albumin 2.9 g/dL (3.4-5.0) L 07/18/20 06:20 Globulin 1.6 g/dL (2.5-4.5) L 07/18/20 06:20 Albumin/Globulin Ratio 1.8 Ratio (1.1-2.1) 07/18/20 06:20 Prealbumin 35.8 mg/dL (18-35.7) H 07/17/20 04:12 Triglycerides 39 mg/dL (0-150) 07/16/20 12:23 Vitamin B12 496 pg/mL (193-986) 07/12/20 09:56 Folate > 20.0 ng/mL (>8.6) 07/12/20 09:56 Specimen Type Catherized urine 07/08/20 22:00 Urine Color Straw (YELLOW) 07/08/20 22:00 Urine Appearance Clear (CLEAR) 07/08/20 22:00 Urine pH 6.5 (5.0 - 8.0) 07/08/20 22:00 Ur Specific [place] 1.010 (1.000-1.030) 07/08/20 22:00 Urine Protein Negative (NEGATIVE) 07/08/20 22:00 Urine Glucose (UA) Negative (NEGATIVE) 07/08/20 22:00 Urine Ketones Negative (NEGATIVE) 07/08/20 22:00 Urine Occult Blood 1+ (NEGATIVE) 07/08/20 22:00 Urine Nitrite Negative (NEGATIVE) 07/08/20 22:00 Urine Bilirubin Negative (NEGATIVE) 07/08/20 22:00 Urine Urobilinogen Normal (NORMAL) 07/08/20 22:00 Ur Leukocyte Esterase Negative (NEGATIVE) 07/08/20 22:00 Urine RBC 0-2 /HPF (0-3) 07/08/20 22:00 Urine WBC None seen /HPF (0-5) 07/08/20 22:00 Ur Squamous Epith Cells Few /HPF (NEGATIVE) 07/08/20 22:00 Urine Bacteria 1+ /HPF (NEGATIVE) 07/08/20 22:00 Hyaline Casts Few /LPF (NEGATIVE) 07/08/20 22:00 Ur Culture Indicated? Yes/culture set up 07/08/20 22:00 SARS CoV-2 RNA Rapid ABDOUL Negative (NEGATIVE) 07/08/20 13:41 Blood Type O POSITIVE 07/12/20 09:56 Antibody Screen Negative 07/12/20 09:56 Crossmatch See Detail 07/12/20 09:56 - Plan (1) COSMETOLOGY INSTRUCTOR vasculitis Status: Acute Plan: NORMAL SALINE AT 20 ML/HR, TPN, ALBUMIN 25% IV DAILY, LEVAQUIN 750MG IV DAILY, IMURAN 100MG PO DAILY, PREDNISONE 20MG PO BID, PEPCID 20MG PO BID, PROTONIX 40MG PO BID, CYMBALTA 30MG PO DAILY, SINEMET 10/100MG PO TID, HUMULIN R SLIDING SCALE, ELIQUIS 5MG PO BID, FOLIC ACID 2MG PO DAILY, SYNTHROID 50MCG PO DAILY, ZOFRAN 4MG IV Q6H PRN, MAXZIDE 37.5/25MG PO DAILY, ULTRAM 50MG PO TID PRN, AND THE POTASSIUM AND MAGNESIUM PROTOCOLS. (2) Encephalopathy Status: Acute (3) Urinary tract infection Status: Acute Qualifiers: Urinary tract infection type: acute cystitis Hematuria presence: without hematuria Qualified Code(s): N30.00 - Acute cystitis without hematuria (4) Lethargy Status: Acute Plan: NORMAL SALINE AT 80 ML/HR, RESUME HOME MEDICATIONS, OBTAIN BRAIN MRI/MRA WITH CONTRAST (5) Generalized weakness Status: Acute (6) Altered mental status Status: Acute Qualifiers: Altered mental status type: transient alteration of awareness Qualified Code(s): R40.4 - Transient alteration of awareness (7) Incontinence Status: Acute Qualifiers: Incontinence type: urinary Urinary Incontinence type: urinary incontinence without sensory awareness Qualified Code(s): N39.42 - Incontinence without sensory awareness
[2020-07-18] MEDS: NS 1000 ML 1,000 ML IV SCH (12:35)
--- NOTE | 2020-07-18 13:01 | PCM.PROG ---
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 SHE IS ALSO ANEMIC AND RECEIVED TWO UNITS OF PRBC LAST WEEK. TODAY, SHE IS ALERT, SITTING UP IN CHAIR ON MORNING ROUNDS. SHE CONTINUES WITH WEAKNESS, BUT STAFF REPORTS THAT SHE DOES SEEM TO BE SHOWING IMPROVEMENT WITH HER STRENGTH. SHE IS ORIENTED TO PERSON AND PLACE TODAY. SHE CONTINUES TO DENY A BOWEL MOVEMENT IN SEVERAL DAYS DESPITE TAKING MILK OF MAGNESIA, COLACE, AND MIRALAX. ON EXAMINATION, HEART IS REGULAR IN RATE AND RHYTHM. BILATERAL LUNGS ARE NOTED WITH DIMINISHED LUNG SOUNDS THROUGHOUT. ABDOMEN IS ROUND, SOFT, AND NOTED TO HAVE MILD, DIFFUSE TENDERNESS TO PALPATION. NORMAL BOWEL SOUNDS IN ALL QUADRANTS. HER VITALS THIS MORNING ARE: 98.2-80-24-100%-115/75. LABS WERE OBTAINED. ABNORMAL LAB VALUES INCLUDE THE FOLLOWING: RBC 2.99, RBC 10.4, HCT 29.2, PLT COUNT 119, SODIUM 133, BUN 51, GLUCOSE 112, TOTAL BILI 1.50, TOTAL PROTEIN 4.5, ALBUMIN 2.9, GLOBULIN 1.6. SHE IS CURRENTLY RECEIVING NORMAL SALINE AT 20 ML/HR, TPN, ALBUMIN 25% IV DAILY, LEVAQUIN 750MG IV DAILY, PREDNISONE 20MG PO BID, MEGACE 40MG PO BID, IMURAN 100MG PO DAILY, PEPCID 20MG PO BID, PROTONIX 40MG PO BID, HUMULIN R SLIDING SCALE, ELIQUIS 5MG PO BID, FOLIC ACID 2MG PO DAILY, SYNTHROID 50MCG PO DAILY, ZOFRAN 4MG IV Q6H PRN, CYMBALTA 30MG PO DAILY, SINEMET 10/100MG TID, MAXZIDE 37.5/25MG PO DAILY, ULTRAM 50MG PO TID PRN, AND THE POTASSIUM AND MAGNESIUM PROTOCOLS. TODAY, WE WILL ADMINISTER ANOTHER SUPPOSITORY. IF NO SUCCESS AFTER THE SUPPOSITORY, SHE WILL HAVE AN ENEMA. OTHERWISE, WE WILL CONTINUE WITH CURRENT PLAN OF CARE TODAY. PATIENT WILL BE GOING TO THE ALF FOR PHYSICAL THERAPY, REHAB, AND IV NUTRITION WHEN SHE IS STABLE FOR DISCHARGE. OTHERWISE, WE PLAN TO FOLLOW UP WITH AM LABS AND CONTINUE TO MONITOR. TIME SPENT ON CLINICAL ASSESSMENT, REVIEWING LABS AND IMAGING, DECISION MAKING, AND DOCUMENTATION GREATER THAN 45 MINUTES. - Past Medical Family Social History Past Med/Fam/Surg Hx: No changes since H&P Allergies: Allergies peanut Allergy (Verified 12/08/18 09:27) - Review of Systems ROS: No change since H&P - Vital Signs and I&O's Vital Signs: Temperature 97.8 F Pulse Rate [Left Brachial] 106 Respiratory Rate 20 Blood Pressure [Right Arm] 103/51 Blood Pressure [Left Arm] 128/64 O2 Sat by Pulse Oximetry 97 Intake and Output: Intake & Output 07/16/20 07/17/20 07/18/20 07/19/20 11:59 11:59 11:59 11:59 Intake Total 1452 / 1452 2217 / 2217 1136 / 1136 Output Total 1660 / 1660 200 / 200 0 / 0 Balance -208 / -208 2016 1136 / 1136 - Physical Exam Oriented: Person Eyes: Normal Ear: Normal Nose: Normal Throat: Normal Respiratory: Generalized, Diminished Cardiovascular: Normal : Normal Auscultation: Bowel Sounds: Normal Tenderness: Diffuse, Mild. negative: Rebound, Guarding, Rigidity Skin: Normal Musculoskeletal: Instability Psychiatric: Normal Mood Description: Calm Affect: Normal Speech Pattern: Clear, Appropriate - Laboratory and Diagnostics Result Diagrams: 07/18/20 06:20 07/18/20 06:20 Labs: 07/08/20 22:00 Urine,Clean Catch Urine Culture - Final Enterococcus Faecalis Laboratory WBC 8.5 X10^3/uL (3.6-10.0) 07/18/20 06:20 RBC 2.99 X10^6/uL (3.5-5.4) L 07/18/20 06:20 Hgb 10.4 g/dL (12.0-16.0) L 07/18/20 06:20 Hct 29.2 % (36.0-47.0) L 07/18/20 06:20 MCV 97.6 fL (80.0-100.0) 07/18/20 06:20 MCH 34.7 pg (27.0-34.0) H 07/18/20 06:20 MCHC 35.6 g/dL (33.0-35.0) H 07/18/20 06:20 RDW 16.8 % (11.6-16.5) H 07/18/20 06:20 Plt Count 119 X10^3/uL (150.0-450.0) L 07/18/20 06:20 Plt Count Comment Decreased (ADEQUATE) A 07/16/20 06:00 MPV 8.0 fL (7.4-11.0) 07/18/20 06:20 Neut % (Auto) 74.7 % (42.0-75.0) 07/18/20 06:20 Lymph % (Auto) 12.8 % (21.0-51.0) L 07/18/20 06:20 [place] % (Auto) 12.4 % (0.0-13.0) 07/18/20 06:20 Eos % (Auto) 0.0 % (0.9-2.9) L 07/18/20 06:20 Baso % (Auto) 0.1 % (0.2-1.0) L 07/18/20 06:20 Neut # (Auto) 6.4 x10^3/uL (2.2-4.8) H 07/18/20 06:20 Lymph # (Auto) 1.1 X10^3/uL (1.3-2.9) L 07/18/20 06:20 [place] # (Auto) 1.1 x10^3/uL (0.3-0.8) H 07/18/20 06:20 Eos # (Auto) 0.0 x10^3/uL (0.0-0.2) 07/18/20 06:20 Baso # (Auto) 0.0 X10^3/uL (0.0-0.1) 07/18/20 06:20 Absolute Nucleated RBC 0.1 /100WBC 07/18/20 06:20 Total Counted 100 07/16/20 06:00 Neutrophils % (Manual) 81 % (39-76) H 07/16/20 06:00 Band Neutrophils % 3 % (0-10) 07/13/20 03:27 Lymphocytes % (Manual) 15 % (13-43) 07/16/20 06:00 Monocytes % (Manual) 4 % (4-9) 07/16/20 06:00 Eosinophils % (Manual) 1 % (0-6) 07/08/20 15:14 Plt Morphology Comment Normal (NORMAL) 07/16/20 06:00 RBC Morphology Normal (NORMAL) 07/16/20 06:00 Poikilocytosis Slight A 07/08/20 15:14 Anisocytosis Slight A 07/13/20 03:27 ESR 1 MM/HOUR (0-20) 07/13/20 03:27 Absolute Retic 0.0598 10^6/uL 07/12/20 09:56 Percent Retic 2.41 % (0.8-2.2) H 07/12/20 09:56 PT 15.4 SECONDS (11.8-14.3) 07/09/20 08:50 INR Target Range - 07/09/20 08:50 INR 1.28 (0.8-1.3) 07/09/20 08:50 APTT 23.5 SECONDS (22.9-36.5) 07/09/20 08:50 PTT Comment - 07/09/20 08:50 Sodium 133 mmol/L (136-145) L 07/18/20 06:20 Corrected Sodium 133 mmol/L (136-145) L 07/18/20 06:20 Potassium 4.7 mmol/L (3.5-5.1) 07/18/20 06:20 Chloride 101 mmol/L (98-107) 07/18/20 06:20 Carbon Dioxide 30.4 mmol/L (21-32) 07/18/20 06:20 BUN 51 mg/dL (7-18) H 07/18/20 06:20 Creatinine 0.87 mg/dL (0.55-1.02) 07/18/20 06:20 Est GFR (MDRD) Af Amer > 60 (>60) 07/18/20 06:20 Est GFR (MDRD) Non-Af > 60 (>60) 07/18/20 06:20 Glucose 112 mg/dL (65-99) H 07/18/20 06:20 POC Glucose (mg/dL) 97 mg/dL (65-99) 07/18/20 11:11 Calcium 9.2 mg/dL (8.5-10.1) 07/18/20 06:20 Corrected Calcium 10.1 mg/dL (8.5-10.1) 07/18/20 06:20 Phosphorus 2.6 mg/dL (2.6-4.7) 07/16/20 12:23 Magnesium 2.4 mg/dL (1.7-2.9) 07/16/20 12:23 Iron 81 ug/dL (50-175) 07/12/20 09:56 Transferrin 124 mg/dL (202-364) L 07/12/20 09:56 Ferritin 291 ng/mL (8-252) H 07/12/20 09:56 Total Bilirubin 1.50 mg/dL (0.2-1.0) H 07/18/20 06:20 AST 21 Units/L (15-37) 07/18/20 06:20 ALT 35 Units/L (12-78) 07/18/20 06:20 Alkaline Phosphatase 63 Units/L (46-116) 07/18/20 06:20 Ammonia 10 umol/L (11-32) L 07/09/20 02:45 Creatine Kinase 19 Units/L (26-192) L 07/09/20 02:45 CK-MB (CK-2) 1.0 ng/mL (0-4.0) 07/09/20 02:45 CK/CKMB % Calc 5.3 % (<4) 07/09/20 02:45 Troponin I 0.06 ng/mL (0-1.5) 07/09/20 02:45 C-Reactive Protein 0.50 mg/L (0-3.0) 07/13/20 03:27 Total Protein 4.5 g/dL (6.4-8.2) L 07/18/20 06:20 Albumin 2.9 g/dL (3.4-5.0) L 07/18/20 06:20 Globulin 1.6 g/dL (2.5-4.5) L 07/18/20 06:20 Albumin/Globulin Ratio 1.8 Ratio (1.1-2.1) 07/18/20 06:20 Prealbumin 35.8 mg/dL (18-35.7) H 07/17/20 04:12 Triglycerides 39 mg/dL (0-150) 07/16/20 12:23 Vitamin B12 496 pg/mL (193-986) 07/12/20 09:56 Folate > 20.0 ng/mL (>8.6) 07/12/20 09:56 Specimen Type Catherized urine 07/08/20 22:00 Urine Color Straw (YELLOW) 07/08/20 22:00 Urine Appearance Clear (CLEAR) 07/08/20 22:00 Urine pH 6.5 (5.0 - 8.0) 07/08/20 22:00 Ur Specific [place] 1.010 (1.000-1.030) 07/08/20 22:00 Urine Protein Negative (NEGATIVE) 07/08/20 22:00 Urine Glucose (UA) Negative (NEGATIVE) 07/08/20 22:00 Urine Ketones Negative (NEGATIVE) 07/08/20 22:00 Urine Occult Blood 1+ (NEGATIVE) 07/08/20 22:00 Urine Nitrite Negative (NEGATIVE) 07/08/20 22:00 Urine Bilirubin Negative (NEGATIVE) 07/08/20 22:00 Urine Urobilinogen Normal (NORMAL) 07/08/20 22:00 Ur Leukocyte Esterase Negative (NEGATIVE) 07/08/20 22:00 Urine RBC 0-2 /HPF (0-3) 07/08/20 22:00 Urine WBC None seen /HPF (0-5) 07/08/20 22:00 Ur Squamous Epith Cells Few /HPF (NEGATIVE) 07/08/20 22:00 Urine Bacteria 1+ /HPF (NEGATIVE) 07/08/20 22:00 Hyaline Casts Few /LPF (NEGATIVE) 07/08/20 22:00 Ur Culture Indicated? 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 (2) Encephalopathy Status: Acute (3) Urinary tract infection Status: Acute Qualifiers: Urinary tract infection type: acute cystitis Hematuria presence: without hematuria Qualified Code(s): N30.00 - Acute cystitis without hematuria (4) Lethargy Status: Acute Plan: NORMAL SALINE AT 80 ML/HR, RESUME HOME MEDICATIONS, OBTAIN BRAIN MRI/MRA WITH CONTRAST (5) Generalized weakness Status: Acute (6) Altered mental status Status: Acute Qualifiers: Altered mental status type: transient alteration of awareness Qualified Code(s): R40.4 - Transient alteration of awareness (7) Incontinence Status: Acute Qualifiers: Incontinence type: urinary Urinary Incontinence type: urinary incontinence without sensory awareness Qualified Code(s): N39.42 - Incontinence without sensory awareness
[2020-07-18] MEDS ORDERED: PROCALAMINE 3 % 1,000 ML IV SCH (14:00)
--- NOTE | 2020-07-18 14:10 | RAD ---
HISTORYABD PAIN HTN, TONSILS, GB, TUBALSTUDYKUBCOMPARISONAbdominal films July 14, 2020.FINDINGSEvaluation of the abdomen demonstrates a normal bowel gas pattern. Moderate stool is seen in the transverse and descending colon. There is no small-bowel or colonic distention. Surgical clips are seen the right upper quadrant probably from cholecystectomy. No pathological soft tissue mass or calcification can be observed. The bony structures are grossly intact.IMPRESSIONModerate stool in the transverse and descending colon may represent mild constipation but there is no evidence of obstruction.Prior surgery right upper quadrant probably cholecystectomy.Electronically signed by: JORGE RICKS (July 18, 2020 14:08:01)
[2020-07-19 05:57] LABS: BASOPHILS % (AUTO) 0.1 % (0.2-1.0); HEMATOCRIT 25.5 % (36.0-47.0); LYMPHOCYTES # (AUTO) 0.7 X10^3/uL (1.3-2.9); MEAN CORPUSCULAR HEMOGLOBIN 34.3 pg (27.0-34.0); MEAN CORPUSCULAR HGB CONC 35.3 g/dL (33.0-35.0); MEAN CORPUSCULAR VOLUME 97.2 fL (80.0-100.0); MEAN PLATELET VOLUME 7.9 fL (7.4-11.0); MONOCYTES # (AUTO) 0.6 x10^3/uL (0.3-0.8); NEUTROPHILS # (AUTO) 6.1 x10^3/uL (2.2-4.8); NEUTROPHILS % (AUTO) 81.9 % (42.0-75.0); PLATELET COUNT 111 X10^3/uL (150.0-450.0); RED BLOOD COUNT 2.63 X10^6/uL (3.5-5.4); RED CELL DISTRIBUTION WIDTH 16.7 % (11.6-16.5); WHITE BLOOD COUNT 7.5 X10^3/uL (3.6-10.0)
[2020-07-19 06:10] LABS: ALANINE AMINOTRANSFERASE 27 Units/L (12-78); ALKALINE PHOSPHATASE 64 Units/L (46-116); ASPARTATE AMINO TRANSFERASE 19 Units/L (15-37); BLOOD UREA NITROGEN 39 mg/dL (7-18); CALCIUM 8.6 mg/dL (8.5-10.1); CARBON DIOXIDE 26.3 mmol/L (21-32); CHLORIDE 99 mmol/L (98-107); COR CA(FOR HYPOALB) 9.4 mg/dL (8.5-10.1); CREATININE 0.73 mg/dL (0.55-1.02); SODIUM 132 mmol/L (136-145); TOTAL PROTEIN 4.4 g/dL (6.4-8.2); eGFR NON BLACK RACES > 60 (>60)
[2020-07-19] MEDS: SINEMET (PLAIN) 10/100 MG PO SCH ×2 (06:29→14:08)
[2020-07-19] MEDS: ALBUMIN HUMAN 25%- 100 ML 100 ML IV SCH (10:16)
[2020-07-19] MEDS: LEVAQUIN PREMIX IV 750 MG 750 MG/150 ML BAG IV SCH (10:17)
[2020-07-19] MEDS: MILK OF MAGNESIA PO SCH (10:18)
[2020-07-19] MEDS: COLACE CAP 100 MG PO SCH (10:18)
[2020-07-19] MEDS: PREDNISONE TAB 20 MG PO SCH (10:20)
[2020-07-19] MEDS: CYMBALTA PO SCH (10:20)
[2020-07-19] MEDS: MAXZIDE 37.5/25 MG PO SCH (10:20)
[2020-07-19] MEDS: FOLIC ACID TAB 1 MG PO SCH (10:21)
[2020-07-19] MEDS: PEPCID TAB 20 MG PO SCH (10:21)
[2020-07-19] MEDS: MEGACE PO SCH (10:21)
[2020-07-19] MEDS: SYNTHROID 50 mcg TAB PO SCH (10:21)
[2020-07-19] MEDS: PROTONIX INJ 40 MG VIAL IVP SCH (10:22)
[2020-07-19] MEDS: IMURAN PO SCH (10:22)
[2020-07-19] MEDS: MIRALAX POWDER (1 DOSE 17 G) PO SCH (10:23)
--- NOTE | 2020-07-19 11:12 | PCM.PROG ---
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 SHE IS ALSO ANEMIC AND RECEIVED TWO UNITS OF PRBC LAST WEEK. TODAY, SHE IS ALERT, LYING IN BED ON MORNING ROUNDS. SHE REPORTS SLIGHT IMPROVEMENT IN SYMPTOMS TODAY. FAMILY REPORTS THAT SHE HAS ATE WELL THIS MORNING. SHE IS ALERT AND ORIENTED X 4. SHE ADMITS TO SEVERAL BOWEL MOVEMENTS THIS MORNING AND THROUGHOUT THE NIGHT. ON EXAMINATION, HEART IS REGULAR IN RATE AND RHYTHM. BILATERAL LUNGS ARE NOTED WITH DIMINISHED LUNG SOUNDS THROUGHOUT. ABDOMEN IS ROUND, SOFT, AND NON-TENDER. NORMAL BOWEL SOUNDS IN ALL QUADRANTS. HER VITALS THIS MORNING ARE: 98.6-97-20-98%-123/65. LABS WERE OBTAINED. ABNORMAL LAB VALUES INCLUDE THE FOLLOWING: RBC 2.63, HGB 9.0, HCT 25.5, PLT COUNT 111, SODIUM 132, BUN 39, TOTAL BILI 1.50, TOTAL PROTEIN 4.4, ALBUMIN 3.0. SHE IS CURRENTLY RECEIVING NORMAL SALINE AT 20 ML/HR, PROCALAMINE AT 40 ML/HR, ALBUMIN 25% IV DAILY, LEVAQUIN 750MG IV DAILY, PREDNISONE 20MG PO BID, MEGACE 40MG PO BID, IMURAN 100MG PO DAILY, PEPCID 20MG PO BID, PROTONIX 40MG PO BID, HUMULIN R SLIDING SCALE, ELIQUIS 5MG PO BID, FOLIC ACID 2MG PO DAILY, SYNTHROID 50MCG PO DAILY, ZOFRAN 4MG IV Q6H PRN, CYMBALTA 30MG PO DAILY, SINEMET 10/100MG TID, MAXZIDE 37.5/25MG PO DAILY, ULTRAM 50MG PO TID PRN, AND THE POTASSIUM AND MAGNESIUM PROTOCOLS. WE WILL CONTINUE WITH CURRENT PLAN OF CARE TODAY. PATIENT WILL BE GOING TO THE [facility] FOR PHYSICAL THERAPY, REHAB, AND IV NUTRITION WHEN SHE IS STABLE FOR DISCHARGE. SHE IS MEDICALLY CLEAR AND STABLE FOR DISCHARGE WHEN HER BED IS AVAILABLE. PRECERT IS PENDING. OTHERWISE, WE PLAN TO FOLLOW UP WITH AM LABS AND CONTINUE TO MONITOR. TIME SPENT ON CLINICAL ASSESSMENT, REVIEWING LABS AND IMAGING, DECISION MAKING, AND DOCUMENTATION GREATER THAN 45 MINUTES. - Past Medical Family Social History Past Med/Fam/Surg Hx: No changes since H&P Allergies: Allergies peanut Allergy (Verified 12/08/18 09:27) - Review of Systems ROS: No change since H&P - Vital Signs and I&O's Vital Signs: Temperature 98.6 F Pulse Rate [Left Brachial] 97 Respiratory Rate 20 Blood Pressure [Right Arm] 123/65 Blood Pressure [Left Arm] 123/77 O2 Sat by Pulse Oximetry 98 Intake and Output: Intake & Output 07/16/20 07/17/20 07/18/20 07/19/20 11:59 11:59 11:59 11:59 Intake Total 1452 / 1452 2217 / 2217 1136 / 1136 1407 / 1407 Output Total 1660 / 1660 200 / 200 0 / 0 Balance -208 / -208 2016 1136 / 1136 1407 / 1407 - Physical Exam Oriented: Person Eyes: Normal Ear: Normal Nose: Normal Throat: Normal Respiratory: Generalized, Diminished Cardiovascular: Normal : Normal Auscultation: Bowel Sounds: Normal Tenderness: Diffuse, Mild. negative: Rebound, Guarding, Rigidity Skin: Normal Musculoskeletal: Instability Psychiatric: Normal Mood Description: Calm Affect: Normal Speech Pattern: Clear, Appropriate - Laboratory and Diagnostics Result Diagrams: 07/19/20 05:40 07/19/20 05:40 Labs: 07/08/20 22:00 Urine,Clean Catch Urine Culture - Final Enterococcus Faecalis Laboratory WBC 7.5 X10^3/uL (3.6-10.0) 07/19/20 05:40 RBC 2.63 X10^6/uL (3.5-5.4) L 07/19/20 05:40 Hgb 9.0 g/dL (12.0-16.0) L 07/19/20 05:40 Hct 25.5 % (36.0-47.0) L 07/19/20 05:40 MCV 97.2 fL (80.0-100.0) 07/19/20 05:40 MCH 34.3 pg (27.0-34.0) H 07/19/20 05:40 MCHC 35.3 g/dL (33.0-35.0) H 07/19/20 05:40 RDW 16.7 % (11.6-16.5) H 07/19/20 05:40 Plt Count 111 X10^3/uL (150.0-450.0) L 07/19/20 05:40 Plt Count Comment Decreased (ADEQUATE) A 07/16/20 06:00 MPV 7.9 fL (7.4-11.0) 07/19/20 05:40 Neut % (Auto) 81.9 % (42.0-75.0) H 07/19/20 05:40 Lymph % (Auto) 10.0 % (21.0-51.0) L 07/19/20 05:40 [place] % (Auto) 8.0 % (0.0-13.0) 07/19/20 05:40 Eos % (Auto) 0.0 % (0.9-2.9) L 07/19/20 05:40 Baso % (Auto) 0.1 % (0.2-1.0) L 07/19/20 05:40 Neut # (Auto) 6.1 x10^3/uL (2.2-4.8) H 07/19/20 05:40 Lymph # (Auto) 0.7 X10^3/uL (1.3-2.9) L 07/19/20 05:40 [place] # (Auto) 0.6 x10^3/uL (0.3-0.8) 07/19/20 05:40 Eos # (Auto) 0.0 x10^3/uL (0.0-0.2) 07/19/20 05:40 Baso # (Auto) 0.0 X10^3/uL (0.0-0.1) 07/19/20 05:40 Absolute Nucleated RBC 0.1 /100WBC 07/19/20 05:40 Total Counted 100 07/16/20 06:00 Neutrophils % (Manual) 81 % (39-76) H 07/16/20 06:00 Band Neutrophils % 3 % (0-10) 07/13/20 03:27 Lymphocytes % (Manual) 15 % (13-43) 07/16/20 06:00 Monocytes % (Manual) 4 % (4-9) 07/16/20 06:00 Eosinophils % (Manual) 1 % (0-6) 07/08/20 15:14 Plt Morphology Comment Normal (NORMAL) 07/16/20 06:00 RBC Morphology Normal (NORMAL) 07/16/20 06:00 Poikilocytosis Slight A 07/08/20 15:14 Anisocytosis Slight A 07/13/20 03:27 ESR 1 MM/HOUR (0-20) 07/13/20 03:27 Absolute Retic 0.0598 10^6/uL 07/12/20 09:56 Percent Retic 2.41 % (0.8-2.2) H 07/12/20 09:56 PT 15.4 SECONDS (11.8-14.3) 07/09/20 08:50 INR Target Range - 07/09/20 08:50 INR 1.28 (0.8-1.3) 07/09/20 08:50 APTT 23.5 SECONDS (22.9-36.5) 07/09/20 08:50 PTT Comment - 07/09/20 08:50 Sodium 132 mmol/L (136-145) L 07/19/20 05:40 Corrected Sodium TNP 07/19/20 05:40 Potassium 4.4 mmol/L (3.5-5.1) 07/19/20 05:40 Chloride 99 mmol/L (98-107) 07/19/20 05:40 Carbon Dioxide 26.3 mmol/L (21-32) 07/19/20 05:40 BUN 39 mg/dL (7-18) H 07/19/20 05:40 Creatinine 0.73 mg/dL (0.55-1.02) 07/19/20 05:40 Est GFR (MDRD) Af Amer > 60 (>60) 07/19/20 05:40 Est GFR (MDRD) Non-Af > 60 (>60) 07/19/20 05:40 Glucose 99 mg/dL (65-99) 07/19/20 05:40 POC Glucose (mg/dL) 89 mg/dL (65-99) 07/18/20 19:24 Calcium 8.6 mg/dL (8.5-10.1) 07/19/20 05:40 Corrected Calcium 9.4 mg/dL (8.5-10.1) 07/19/20 05:40 Phosphorus 2.6 mg/dL (2.6-4.7) 07/16/20 12:23 Magnesium 2.4 mg/dL (1.7-2.9) 07/16/20 12:23 Iron 81 ug/dL (50-175) 07/12/20 09:56 Transferrin 124 mg/dL (202-364) L 07/12/20 09:56 Ferritin 291 ng/mL (8-252) H 07/12/20 09:56 Total Bilirubin 1.50 mg/dL (0.2-1.0) H 07/19/20 05:40 AST 19 Units/L (15-37) 07/19/20 05:40 ALT 27 Units/L (12-78) 07/19/20 05:40 Alkaline Phosphatase 64 Units/L (46-116) 07/19/20 05:40 Ammonia 10 umol/L (11-32) L 07/09/20 02:45 Creatine Kinase 19 Units/L (26-192) L 07/09/20 02:45 CK-MB (CK-2) 1.0 ng/mL (0-4.0) 07/09/20 02:45 CK/CKMB % Calc 5.3 % (<4) 07/09/20 02:45 Troponin I 0.06 ng/mL (0-1.5) 07/09/20 02:45 C-Reactive Protein 0.50 mg/L (0-3.0) 07/13/20 03:27 Total Protein 4.4 g/dL (6.4-8.2) L 07/19/20 05:40 Albumin 3.0 g/dL (3.4-5.0) L 07/19/20 05:40 Globulin 1.4 g/dL (2.5-4.5) L 07/19/20 05:40 Albumin/Globulin Ratio 2.1 Ratio (1.1-2.1) 07/19/20 05:40 Prealbumin 35.8 mg/dL (18-35.7) H 07/17/20 04:12 Triglycerides 39 mg/dL (0-150) 07/16/20 12:23 Vitamin B12 496 pg/mL (193-986) 07/12/20 09:56 Folate > 20.0 ng/mL (>8.6) 07/12/20 09:56 Specimen Type Catherized urine 07/08/20 22:00 Urine Color Straw (YELLOW) 07/08/20 22:00 Urine Appearance Clear (CLEAR) 07/08/20 22:00 Urine pH 6.5 (5.0 - 8.0) 07/08/20 22:00 Ur Specific [place] 1.010 (1.000-1.030) 07/08/20 22:00 Urine Protein Negative (NEGATIVE) 07/08/20 22:00 Urine Glucose (UA) Negative (NEGATIVE) 07/08/20 22:00 Urine Ketones Negative (NEGATIVE) 07/08/20 22:00 Urine Occult Blood 1+ (NEGATIVE) 07/08/20 22:00 Urine Nitrite Negative (NEGATIVE) 07/08/20 22:00 Urine Bilirubin Negative (NEGATIVE) 07/08/20 22:00 Urine Urobilinogen Normal (NORMAL) 07/08/20 22:00 Ur Leukocyte Esterase Negative (NEGATIVE) 07/08/20 22:00 Urine RBC 0-2 /HPF (0-3) 07/08/20 22:00 Urine WBC None seen /HPF (0-5) 07/08/20 22:00 Ur Squamous Epith Cells Few /HPF (NEGATIVE) 07/08/20 22:00 Urine Bacteria 1+ /HPF (NEGATIVE) 07/08/20 22:00 Hyaline Casts Few /LPF (NEGATIVE) 07/08/20 22:00 Ur Culture Indicated? Yes/culture set up 07/08/20 22:00 SARS CoV-2 RNA Rapid ABDOUL Negative (NEGATIVE) 07/08/20 13:41 Blood Type O POSITIVE 07/12/20 09:56 Antibody Screen Negative 07/12/20 09:56 Crossmatch See Detail 07/12/20 09:56 - Plan (1) [employer] vasculitis Status: Acute Plan: NORMAL SALINE AT 20 ML/HR, TPN, ALBUMIN 25% IV DAILY, LEVAQUIN 750MG IV DAILY, IMURAN 100MG PO DAILY, PREDNISONE 20MG PO BID, PEPCID 20MG PO BID, PROTONIX 40MG PO BID, CYMBALTA 30MG PO DAILY, SINEMET 10/100MG PO TID, HUMULIN R SLIDING SCALE, ELIQUIS 5MG PO BID, FOLIC ACID 2MG PO DAILY, SYNTHROID 50MCG PO DAILY, ZOFRAN 4MG IV Q6H PRN, MAXZIDE 37.5/25MG PO DAILY, ULTRAM 50MG PO TID PRN, AND THE POTASSIUM AND MAGNESIUM PROTOCOLS. (2) Encephalopathy Status: Acute (3) Urinary tract infection Status: Acute Qualifiers: Urinary tract infection type: acute cystitis Hematuria presence: without hematuria Qualified Code(s): N30.00 - Acute cystitis without hematuria (4) Lethargy Status: Acute Plan: NORMAL SALINE AT 80 ML/HR, RESUME HOME MEDICATIONS, OBTAIN BRAIN MRI/MRA WITH CONTRAST (5) Generalized weakness Status: Acute (6) Altered mental status Status: Acute Qualifiers: Altered mental status type: transient alteration of awareness Qualified Code(s): R40.4 - Transient alteration of awareness (7) Incontinence Status: Acute Qualifiers: Incontinence type: urinary Urinary Incontinence type: urinary incontinence without sensory awareness Qualified Code(s): N39.42 - Incontinence without sensory awareness
[2020-07-19] MEDS: ULTRAM PO PRN (11:17)
[2020-07-19 12:04] VITALS: BP 121/62
--- NOTE | 2020-07-19 13:48 | DR.PROGNOT ---
Hospital Progress Notes - Progress Note for Day of: Progress Note Date: 07/19/20 - Chief Complaint Chief Complaint: Pt is very weak and tired . alert . has large area of ecchymosis involving the Lt anterior chest wall and arm . dressing was changed .. no active bleeding from the incision . - Past Medical Family Social History Past Med/Fam/Surg Hx: No changes since H&P Allergies: Allergies peanut Allergy (Verified 12/08/18 09:27) - Review Of Systems ROS: No change since H&P - Vital Signs Vital Signs: Temperature 98.1 F Pulse Rate [Left Brachial] 86 Respiratory Rate 20 Blood Pressure [Right Arm] 121/62 Blood Pressure [Left Arm] 123/77 O2 Sat by Pulse Oximetry 97 - Physical Exam Oriented: Person Eyes: Normal Ear: Normal Nose: Normal Throat: Normal Respiratory: Generalized, Diminished Cardiovascular: Normal : Normal GI:Auscultation: Normal GI:Palpation: Normal GI: Tenderness: Diffuse, Mild. negative: Rebound, Guarding, Rigidity Skin: Normal, Other (ecchymosis Lt chest wall . arm and lower abdominal wall ..) Musculoskeletal: Instability Psychiatric: Normal Mood Description: Calm Affect: Normal Speech Pattern: Appropriate, Delayed - Laboratory and Diagnostics Result Diagrams: 07/19/20 05:40 07/19/20 05:40 Labs: 07/08/20 22:00 Urine,Clean Catch Urine Culture - Final Enterococcus Faecalis Laboratory WBC 7.5 X10^3/uL (3.6-10.0) 07/19/20 05:40 RBC 2.63 X10^6/uL (3.5-5.4) L 07/19/20 05:40 Hgb 9.0 g/dL (12.0-16.0) L 07/19/20 05:40 Hct 25.5 % (36.0-47.0) L 07/19/20 05:40 MCV 97.2 fL (80.0-100.0) 07/19/20 05:40 MCH 34.3 pg (27.0-34.0) H 07/19/20 05:40 MCHC 35.3 g/dL (33.0-35.0) H 07/19/20 05:40 RDW 16.7 % (11.6-16.5) H 07/19/20 05:40 Plt Count 111 X10^3/uL (150.0-450.0) L 07/19/20 05:40 Plt Count Comment Decreased (ADEQUATE) A 07/16/20 06:00 MPV 7.9 fL (7.4-11.0) 07/19/20 05:40 Neut % (Auto) 81.9 % (42.0-75.0) H 07/19/20 05:40 Lymph % (Auto) 10.0 % (21.0-51.0) L 07/19/20 05:40 [place] % (Auto) 8.0 % (0.0-13.0) 07/19/20 05:40 Eos % (Auto) 0.0 % (0.9-2.9) L 07/19/20 05:40 Baso % (Auto) 0.1 % (0.2-1.0) L 07/19/20 05:40 Neut # (Auto) 6.1 x10^3/uL (2.2-4.8) H 07/19/20 05:40 Lymph # (Auto) 0.7 X10^3/uL (1.3-2.9) L 07/19/20 05:40 [place] # (Auto) 0.6 x10^3/uL (0.3-0.8) 07/19/20 05:40 Eos # (Auto) 0.0 x10^3/uL (0.0-0.2) 07/19/20 05:40 Baso # (Auto) 0.0 X10^3/uL (0.0-0.1) 07/19/20 05:40 Absolute Nucleated RBC 0.1 /100WBC 07/19/20 05:40 Total Counted 100 07/16/20 06:00 Neutrophils % (Manual) 81 % (39-76) H 07/16/20 06:00 Band Neutrophils % 3 % (0-10) 07/13/20 03:27 Lymphocytes % (Manual) 15 % (13-43) 07/16/20 06:00 Monocytes % (Manual) 4 % (4-9) 07/16/20 06:00 Eosinophils % (Manual) 1 % (0-6) 07/08/20 15:14 Plt Morphology Comment Normal (NORMAL) 07/16/20 06:00 RBC Morphology Normal (NORMAL) 07/16/20 06:00 Poikilocytosis Slight A 07/08/20 15:14 Anisocytosis Slight A 07/13/20 03:27 ESR 1 MM/HOUR (0-20) 07/13/20 03:27 Absolute Retic 0.0598 10^6/uL 07/12/20 09:56 Percent Retic 2.41 % (0.8-2.2) H 07/12/20 09:56 PT 15.4 SECONDS (11.8-14.3) 07/09/20 08:50 INR Target Range - 07/09/20 08:50 INR 1.28 (0.8-1.3) 07/09/20 08:50 APTT 23.5 SECONDS (22.9-36.5) 07/09/20 08:50 PTT Comment - 07/09/20 08:50 Sodium 132 mmol/L (136-145) L 07/19/20 05:40 Corrected Sodium TNP 07/19/20 05:40 Potassium 4.4 mmol/L (3.5-5.1) 07/19/20 05:40 Chloride 99 mmol/L (98-107) 07/19/20 05:40 Carbon Dioxide 26.3 mmol/L (21-32) 07/19/20 05:40 BUN 39 mg/dL (7-18) H 07/19/20 05:40 Creatinine 0.73 mg/dL (0.55-1.02) 07/19/20 05:40 Est GFR (MDRD) Af Amer > 60 (>60) 07/19/20 05:40 Est GFR (MDRD) Non-Af > 60 (>60) 07/19/20 05:40 Glucose 99 mg/dL (65-99) 07/19/20 05:40 POC Glucose (mg/dL) 97 mg/dL (65-99) 07/19/20 11:28 Calcium 8.6 mg/dL (8.5-10.1) 07/19/20 05:40 Corrected Calcium 9.4 mg/dL (8.5-10.1) 07/19/20 05:40 Phosphorus 2.6 mg/dL (2.6-4.7) 07/16/20 12:23 Magnesium 2.4 mg/dL (1.7-2.9) 07/16/20 12:23 Iron 81 ug/dL (50-175) 07/12/20 09:56 Transferrin 124 mg/dL (202-364) L 07/12/20 09:56 Ferritin 291 ng/mL (8-252) H 07/12/20 09:56 Total Bilirubin 1.50 mg/dL (0.2-1.0) H 07/19/20 05:40 AST 19 Units/L (15-37) 07/19/20 05:40 ALT 27 Units/L (12-78) 07/19/20 05:40 Alkaline Phosphatase 64 Units/L (46-116) 07/19/20 05:40 Ammonia 10 umol/L (11-32) L 07/09/20 02:45 Creatine Kinase 19 Units/L (26-192) L 07/09/20 02:45 CK-MB (CK-2) 1.0 ng/mL (0-4.0) 07/09/20 02:45 CK/CKMB % Calc 5.3 % (<4) 07/09/20 02:45 Troponin I 0.06 ng/mL (0-1.5) 07/09/20 02:45 C-Reactive Protein 0.50 mg/L (0-3.0) 07/13/20 03:27 Total Protein 4.4 g/dL (6.4-8.2) L 07/19/20 05:40 Albumin 3.0 g/dL (3.4-5.0) L 07/19/20 05:40 Globulin 1.4 g/dL (2.5-4.5) L 07/19/20 05:40 Albumin/Globulin Ratio 2.1 Ratio (1.1-2.1) 07/19/20 05:40 Prealbumin 35.8 mg/dL (18-35.7) H 07/17/20 04:12 Triglycerides 39 mg/dL (0-150) 07/16/20 12:23 Vitamin B12 496 pg/mL (193-986) 07/12/20 09:56 Folate > 20.0 ng/mL (>8.6) 07/12/20 09:56 Specimen Type Catherized urine 07/08/20 22:00 Urine Color Straw (YELLOW) 07/08/20 22:00 Urine Appearance Clear (CLEAR) 07/08/20 22:00 Urine pH 6.5 (5.0 - 8.0) 07/08/20 22:00 Ur Specific [place] 1.010 (1.000-1.030) 07/08/20 22:00 Urine Protein Negative (NEGATIVE) 07/08/20 22:00 Urine Glucose (UA) Negative (NEGATIVE) 07/08/20 22:00 Urine Ketones Negative (NEGATIVE) 07/08/20 22:00 Urine Occult Blood 1+ (NEGATIVE) 07/08/20 22:00 Urine Nitrite Negative (NEGATIVE) 07/08/20 22:00 Urine Bilirubin Negative (NEGATIVE) 07/08/20 22:00 Urine Urobilinogen Normal (NORMAL) 07/08/20 22:00 Ur Leukocyte Esterase Negative (NEGATIVE) 07/08/20 22:00 Urine RBC 0-2 /HPF (0-3) 07/08/20 22:00 Urine WBC None seen /HPF (0-5) 07/08/20 22:00 Ur Squamous Epith Cells Few /HPF (NEGATIVE) 07/08/20 22:00 Urine Bacteria 1+ /HPF (NEGATIVE) 07/08/20 22:00 Hyaline Casts Few /LPF (NEGATIVE) 07/08/20 22:00 Ur Culture Indicated? Yes/culture set up 07/08/20 22:00 SARS CoV-2 RNA Rapid ABDOUL Negative (NEGATIVE) 07/08/20 13:41 Blood Type O POSITIVE 07/12/20 09:56 Antibody Screen Negative 07/12/20 09:56 Crossmatch See Detail 07/12/20 09:56 - Assessment and Plan 1: s/p port a cath placement with ecchymosis chest wall and arm . coagulopathy 2nd Eliquis . to observe for now .. 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
== END 2020-07-19 15:20 | DRG 300 ==
LOC: MED/SURG
PROVIDERS: ADMIT Internal Medicine; ATTEND Internal Medicine
DX: R10.11 Right upper quadrant pain; Z20.822 Contact with and (suspected) exposure to COVID-19; R26.9 Unspecified abnormalities of gait and mobility; K59.00 Constipation, unspecified; R26.2 Difficulty in walking, not elsewhere classified; R53.83 Other fatigue; D64.9 Anemia, unspecified; R40.4 Transient alteration of awareness; R32 Unspecified urinary incontinence; I87.2 Venous insufficiency (chronic) (peripheral); I10 Essential (primary) hypertension; R62.7 Adult failure to thrive; M31.8 Other specified necrotizing vasculopathies; G93.49 Other encephalopathy; N30.00 Acute cystitis without hematuria